=== PATIENT | female | born 1935 | race Caucasian/White ===

== ENCOUNTER 2016-03-15 03:02 | Inpatient (IN) | payer MEDICARE, OTHER ==
[~2016-03-15] VITALS: Ht 157.5 cm; Wt 42.0 kg
[2016-03-15] VITALS (11 sets, daily range): BP systolic 110–139; BP diastolic 56–64
[~2016-03-15 03:02] MED LIST: ALBU83IN NEB; ASPI325T PO; ASPI81CH PO; ATOR1TAB18 PO; BACITAB3 PO; BROV15NE INH; CITA20TA4 PO; COLA100C PO; COUM1TAB14 PO; DOCU10CA PO; DULC5TAB PO; IPRASOL4 NEB; LANO0.1211 PO; LEVO25TA5 PO; LIDO5DIS36 TD; LISI10TA4 PO; METO-346 PO; METO25TAB PO; MILKSUS PO; MIRA3350 PO; PANT40TA2 PO; PROA1AER INH; SENO8.6T10 PO; SENO8.6T2 PO; SPIR1CAP INH; SYNT50TA PO; TYLE325T5 PO; TYLE500T78 PO; VISITAB6 PO; VITMTA PO; ZOFR20TA PO; ipratropium bromide INH
[2016-03-15] MEDS ORDERED: MIDAZOLAM INJ 2 MG/2 ML VIAL (J2250) IV PRN (04:15)
[2016-03-15] MEDS ORDERED: MORPHINE 2 MG/ML 1ML SYRINGE IV PRN (04:15)
[2016-03-15] MEDS ORDERED: GLUCAGON FOR INJ 1 MG VIAL (J1610) SC PRN (04:30)
[2016-03-15] MEDS ORDERED: DEXTROSE 50% 50 ML SYRINGE IV PRN (04:30)
[2016-03-15] MEDS ORDERED: GLUCOSE 4 GM CHEW TABLET PO PRN (04:30)
[2016-03-15] MEDS ORDERED: NOREPINEPHRINE BITARTRATE 8 MG in D5W 500 ML IV SCH (05:00)
[2016-03-15] MEDS ORDERED: NOREPINEPHRINE 4 MG/4 ML AMP As Ordered ONE (05:05)
[2016-03-15 05:45] LABS: EOS % 0.1 % (0.0-3.0); LARGE UNSTAINED CELL % 0.3 % (0.0-4.0); LYMPH # 0.4 K/mm3 (1.5-4.5); LYMPH % 2.8 % (24.0-44.0); MEAN CORPUSCULAR HEMOGLOBIN 25.4 pg (27.0-33.0); MEAN CORPUSCULAR HGB CONC 30.5 g/dl (32.0-36.5); MONO # 0.2 K/mm3 (0.0-0.8); MONO % 1.4 % (0.0-5.0); NEUTROPHILS # 12.9 K/mm3 (1.8-7.7); NEUTROPHILS % 95.4 % (36.0-66.0); PLATELET COUNT, AUTOMATED 351 k/mm3 (150-450); RED CELL DISTRIBUTION WIDTH 19.6 % (11.5-14.5); WHITE BLOOD COUNT 13.6 K/mm3 (4.0-10.0)
[2016-03-15 05:56] LABS: INR 1.07
[2016-03-15] MEDS ORDERED: LEVOTHYROXINE SODIUM 0.0625 MG 1/2 TAB (62.5MCG) PO SCH (06:00)
[2016-03-15 06:03] LABS: ABG BASE EXCESS 1.2 (-2.0-2.0); ABG HCO3 25.3 MEQ/L (22.0-26.0); ABG PARTIAL PRESSURE CO2 37.7 mmHg (35.0-45.0); ABG PARTIAL PRESSURE O2 81.9 mmHg (75.0-100.0); ABG STANDARD HCO3 25.6 MEQ/L (22.0-26.0); ABG TOTAL CO2 26.4 MEQ/L (23.0-31.0); ABG pH (ARTERIAL) 7.444 UNITS (7.350-7.450)
[2016-03-15] MEDS: D5W/0.9% SODIUM CHLORIDE 1,000 ML IV SCH ×2 (06:10→22:10)
[2016-03-15] MEDS: HumaLOG INSULIN (NovoLOG) PER UNIT SC SCH ×3 (06:11→17:55)
[2016-03-15 06:22] LABS: ALBUMIN 3.2 GM/DL (3.2-5.2); ALBUMIN/GLOBULIN RATIO 1.14 (1.00-1.93); BILIRUBIN,TOTAL 0.3 MG/DL (0.2-1.0); CALCIUM LEVEL 8.4 MG/DL (8.8-10.2); CREATININE FOR GFR 0.99 MG/DL (0.55-1.02); GLOMERULAR FILTRATION RATE 57.3 (>32); MAGNESIUM LEVEL 1.7 MG/DL (1.8-2.4); PHOSPHORUS LEVEL 2.8 MG/DL (2.5-4.9); POTASSIUM SERUM 3.8 MEQ/L (3.5-5.1)
[2016-03-15] MEDS: IPRATROPIUM 0.5MG/ALBUTEROL 2.5MG INH SOL UD 3ML (DUONEB)(J7620) NEB SCH ×4 (07:30→19:28)
[2016-03-15] MEDS: DIGOXIN 0.125 MG TAB PO SCH (09:00)
[2016-03-15] MEDS ORDERED: PANTOPRAZOLE 40MG INJ (PROTONIX) (C9113) IV SCH (09:00)
[2016-03-15] MEDS ORDERED: CHLORHEXIDINE GLUCONATE 0.12 % 15ML UDC (PERIDEX ORAL RINSE) MT SCH (09:00)
[2016-03-15] MEDS ORDERED: THEO30TASA PO ×2 (10:24→18:10)
[2016-03-15] MEDS ORDERED: METO50TA9 PO (10:24)
[2016-03-15] MEDS ORDERED: DILT240C28 PO (10:24)
--- NOTE | 2016-03-15 11:45 | REP ---
AP PORTABLE CHEST: 03/15/2016 at 10:51 AM. Clinical history: Endotracheal tube. Comparison CT chest 03/26/2015, portable chest 03/26/2015, 11/07/2014, 11/05/2014. Findings: Endotracheal tube is seen with its tip only about 1.5 cm above the lucía. It should be pulled back 1-2 cm. A nasogastric tube courses through the mediastinum into the left upper quadrant, tip off the field well into the body of the stomach. Haziness at the right lung base suggests some atelectasis or effusion with blunting of that CP angle confirming some effusion. Basilar atelectatic or fibrotic change and diffuse vascular congestion with engorgement of the veins and the underlying interstitial fibrosis making early edema difficult to exclude. I do suspect some interstitial edema. Chronic fibronodular density in the left base as on multiple previous chest x-rays and CT. Tortuous calcified aorta again seen. Heart size not enlarged. Bones demineralized. Impression: 1. Endotracheal tube only 1.5 cm from the ulcía. It should be pulled back 1-2 cm. 2. Nasogastric tube well into the stomach, tip off the field. 3. Diffuse interstitial and alveolar edema and/or infiltrates with haziness right lung base suggesting right effusion and/or atelectasis. Chronic fibronodular density left base. No gross cardiomegaly. Tortuous calcified aorta without aneurysm. Advance fibrosis and emphysematous changes. Signed by Tee Lomeli MD 03/15/2016 07:00 P
[2016-03-15] MEDS: LEVOTHYROXINE 0.025 MG TAB (25 MCG) PO SCH (12:42)
[2016-03-15] MEDS ORDERED: COUM2TAB10 PO (17:12)
[2016-03-15] MEDS ORDERED: DIGO0.12 PO (17:12)
[2016-03-15] MEDS ORDERED: LEVO50TA5 PO (17:12)
[2016-03-15] MEDS ORDERED: XANA0.5T PO (17:12)
[2016-03-15] MEDS ORDERED: ASPI1TAB PO ×2 (17:12→18:10)
[2016-03-15] MEDS ORDERED: ATOR1TAB18 PO (17:12)
[2016-03-15] MEDS ORDERED: STOO100C PO (17:12)
[2016-03-15] MEDS ORDERED: PANT20TA PO (17:12)
[2016-03-15] MEDS ORDERED: LISI10TA4 PO (17:12)
[2016-03-15] MEDS ORDERED: METO-207 PO (18:02)
[2016-03-15] MEDS ORDERED: LUTECAP2 PO (18:10)
[2016-03-15] MEDS ORDERED: CITA20TA4 PO (18:10)
[2016-03-15] MEDS ORDERED: LISI-542 PO (18:10)
[2016-03-15] MEDS ORDERED: PANT40TA2 PO (18:10)
[2016-03-15] MEDS ORDERED: DILT240C56 PO (18:11)
[2016-03-15] MEDS ORDERED: WARFARIN SOD 2.5 MG TAB PO ONE (21:15)
[2016-03-15] MEDS ORDERED: ASPIRIN 81 MG ENTERIC TAB PO ONE (21:15)
[2016-03-16] VITALS (14 sets, daily range): BP systolic 126–239; BP diastolic 59–105; O2SAT 98
[2016-03-16 05:19] LABS: LARGE UNSTAINED CELL # 0.1 K/mm3 (0.0-0.4); LARGE UNSTAINED CELL % 0.5 % (0.0-4.0); LYMPH % 6.5 % (24.0-44.0); MEAN CORPUSCULAR HEMOGLOBIN 25.6 pg (27.0-33.0); MEAN CORPUSCULAR HGB CONC 31.1 g/dl (32.0-36.5); MEAN CORPUSCULAR VOLUME 82.3 fl (80.0-96.0); MONO # 0.4 K/mm3 (0.0-0.8); MONO % 2.4 % (0.0-5.0); NEUTROPHILS % 90.5 % (36.0-66.0); PLATELET COUNT, AUTOMATED 362 k/mm3 (150-450); RED CELL DISTRIBUTION WIDTH 19.7 % (11.5-14.5); WHITE BLOOD COUNT 15.5 K/mm3 (4.0-10.0)
[2016-03-16 05:33] LABS: INR 1.26
[2016-03-16 05:41] LABS: ALBUMIN 2.7 GM/DL (3.2-5.2); ALBUMIN/GLOBULIN RATIO 0.96 (1.00-1.93); ALKALINE PHOSPHATASE 123 U/L (45-117); ALT/SGPT 15 U/L (12-78); ANION GAP 9 MEQ/L (8-16); AST/SGOT 17 U/L (15-37); BILIRUBIN,TOTAL 0.2 MG/DL (0.2-1.0); BLOOD UREA NITROGEN 12 MG/DL (7-18); CALCIUM LEVEL 7.9 MG/DL (8.8-10.2); CARBON DIOXIDE LEVEL 25 MEQ/L (21-32); CHLORIDE LEVEL 107 MEQ/L (98-107); CHOLESTEROL LEVEL 114 MG/DL (< 200); CREATININE FOR GFR 0.66 MG/DL (0.55-1.02); GLOMERULAR FILTRATION RATE > 60.0 (>32); GLUCOSE, FASTING 126 MG/DL (83-110); PHOSPHORUS LEVEL 3.3 MG/DL (2.5-4.9); POTASSIUM SERUM 4.2 MEQ/L (3.5-5.1); SODIUM LEVEL 141 MEQ/L (136-145); TOTAL PROTEIN 5.5 GM/DL (6.4-8.2); TRIGLYCERIDES LEVEL 79 MG/DL (<150)
[2016-03-16 06:15] LABS: ABG BASE EXCESS 1.3 (-2.0-2.0); ABG HCO3 26.7 MEQ/L (22.0-26.0); ABG PARTIAL PRESSURE CO2 46.3 mmHg (35.0-45.0); ABG PARTIAL PRESSURE O2 145.8 mmHg (75.0-100.0); ABG STANDARD HCO3 25.6 MEQ/L (22.0-26.0); ABG TOTAL CO2 28.1 MEQ/L (23.0-31.0); ABG pH (ARTERIAL) 7.379 UNITS (7.350-7.450)
[2016-03-16] MEDS: HumaLOG INSULIN (NovoLOG) PER UNIT SC SCH ×5 (06:37→20:56)
[2016-03-16] MEDS: LEVOTHYROXINE 0.025 MG TAB (25 MCG) PO SCH (06:37)
--- NOTE | 2016-03-16 06:46 | REP ---
MRI BRAIN WITHOUT AND WITH CONTRAST: 03/15/2016. Clinical history: Occipital CVA. Past history of uterine carcinoma. No prior study. Technique: Axial T1, T2, FLAIR, gradient echo, diffusion-weighted images and ADC mapping sequences with sagittal T1 sequence following infusion of 4 ml of ProHance, T1 axial and coronal post gadolinium images obtained. Findings. Ventricles are midline, symmetric and mildly dilated for those lateral ventricles but not displaced. They are proportionate to the mild diffuse cerebral atrophy. There is extensive periventricular deep central and subcortical white matter hyperintense T2 and FLAIR signal foci bilaterally. There are bilateral dilated spaces of Virchow in the basal ganglia. The cortical stripe shows diffuse atrophy greatest in the temporal lobes but present elsewhere to a lesser extent throughout. On gradient echo images, there is no evidence of intraparenchymal or intraventricular hemorrhage. T2 and FLAIR images show signal abnormality in the left occipital lobe abutting the falx above the tentorium. There is more confluent hyperintense T2 and FLAIR signal abnormality in these regions with more central hyperintense T2 and hypointense FLAIR signal in the same region representing a subacute infarct with developing encephalomalacia. No evidence of hemorrhage. Diffusion weighted images and the ADC mapping sequences confirm the presence of the subacute infarct. I do not see acute ischemia elsewhere. The corpus callosum, optic chiasm and pituitary were grossly intact. There is no cerebellar tonsillar ectopia. Brainstem shows some bilateral hyperintense signal foci in the kitty and cerebral peduncles. These do not show evidence of hemorrhage on the gradient echo images. Basal cisterns are intact. The cerebellum shows no mass or signal abnormality. It has mild atrophy. The seventh/eighth cranial nerve complexes and mastoids grossly intact. Septal deviation towards the right is mild. The frontal, ethmoid, sphenoid and maxillary sinuses visible were intact. Globes and intraorbital contents including optic nerves and extraocular muscles were unremarkable. No abnormal enhancement of these structures. There is no other abnormal enhancement besides that subacute infarct in the posterior left occipital lobe. Developing encephalomalacia in this region. No midline shift, edema or mass effect. Impression: 1. Subacute infarct left posterior occipital lobe abutting the falx but above the level of the tentorium. No bleed associated with this. No significant mass effect or adjacent edema. Gyriform enhancement and developing encephalomalacia noted. No other infarct, hemorrhage or mass. 2. Diffuse atrophy with midline mildly dilated lateral ventricles without displacement. 3. There are chronic extensive small vessel white matter ischemic changes in periventricular, deep central and subcortical white matter tracts bilaterally. Signed by Tee Lomeli MD 03/16/2016 10:07 A
[2016-03-16] MEDS: IPRATROPIUM 0.5MG/ALBUTEROL 2.5MG INH SOL UD 3ML (DUONEB)(J7620) NEB SCH ×5 (07:18→23:45)
--- NOTE | 2016-03-16 09:18 | REP ---
PORTABLE CHEST: AP portable view of the chest is performed and compared to prior study 03/15/2016 as well as other prior exams. Endotracheal tube and nasogastric tube have been removed. Scattered interstitial infiltrates diffusely bilaterally have mildly improved. There are also mild bibasilar alveolar infiltrates which appear somewhat improved. The heart is not significantly enlarged. There is calcification and tortuosity of the thoracic aorta. The mediastinal silhouette is unchanged. Possible small right effusion is noted. IMPRESSION: Improvement of diffuse interstitial infiltrates. Improvement of bibasilar alveolar infiltrates. Possible small right effusion. Removal of endotracheal tube and nasogastric tube. Signed by Edmundo Boyd MD 03/16/2016 01:36 P
[2016-03-16] MEDS: DIGOXIN 0.125 MG TAB PO SCH (09:45)
[2016-03-16] MEDS: ASPIRIN 81 MG ENTERIC TAB PO SCH (09:45)
[2016-03-16] MEDS ORDERED: IPRATROPIUM 0.5MG/ALBUTEROL 2.5MG INH SOL UD 3ML (DUONEB)(J7620) NEB PRN (10:00)
--- NOTE | 2016-03-16 10:07 | CCN ---
DATE: 03/15/2016 TIME: 5:13 a.m. The patient is seen on arrival via ambulance to the intensive care unit from the [facility] where she presented at 0045 this morning unresponsive. She is an 80-year-old female. She was found unresponsive at home by family and brought via EMS to [facility] where she was found in respiratory distress. Endotracheal tube intubation was performed. She developed hypotension and pressors were started. CT scan of the head shows a left occipital cerebrovascular accident (CVA). Focal seizures were described in the emergency department at [facility]. On reviewing the electronic health record, she has a past medical history of CVA times two in 2013 with involvement of the right basal ganglion. 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 On her arrival, exam reveals temperature of 96, pulse rate 96, respirations 16 over 16 delivered and her blood pressure is 136/60. She is a cachectic, elderly female, unresponsive, intubated on mechanical ventilatory support. HEENT: Her left pupil is large and poorly responsive, right is 3 mm and reacts. The endotracheal tube is at 25 cm. Neck is supple. There is no meningismus. Limited range of motion is noted. The jugular veins are not distended. Carotid upstroke is sluggish with bilateral bruits. Heart sounds are regular with a systolic murmur. Breath sounds diminished bilaterally, expiratory phase is prolonged. The chest is hyperinflated and hyperresonant to percussion. Abdomen is soft with bilateral femoral bruits. No abdominal masses. Extremities are cool. Pulses are diminished. She is hyperreflexic on the left. Sodium 134, potassium 4.7, chloride 98, CO2 17, glucose 199. White cell count 22, hemoglobin 9.7, hematocrit 31.5, platelet count 499,000. The primary problem requiring critical attention is acute respiratory failure. Will initiate mechanical ventilation with assist control, lung protective settings and check an arterial blood gas. The patient has suffered an ischemic CVA. Will provide supportive care, blood pressure control and will obtain consultation with neurology. Neurogenic shock. Pressors will be utilized to maintain a mean arterial pressure of 65. Underlying chronic obstructive pulmonary disease (COPD). The patient will be given nebulized bronchodilator therapy. Focal seizures. The patient is not experiencing any seizure activity at this time. Will closely monitor her for the occurrence of seizures and intervene if necessary. Deep vein thrombosis (DVT) prophylaxis will be addressed with sequential hose. Ulcer prophylaxis will be addressed with Protonix. Glycemic control will be monitored with fingerstick blood sugars. Will provide coverage if needed. 1 hour and 50 minutes of time was spent at bedside in critical care and coordination. The patient's condition is critical. Prognosis is guarded to poor.
[2016-03-16] MEDS: PANTOPRAZOLE 40MG TAB (PROTONIX) PO SCH (10:16)
[2016-03-16] MEDS ORDERED: ALBUTEROL SULFATE 2.5 MG/0.5 ML INH NEB SOLN As Ordered ONE (10:31)
[2016-03-16] MEDS ORDERED: ALBUTEROL SULFATE 2.5 MG/0.5 ML INH NEB SOLN NEB PRN (10:45)
[2016-03-16] MEDS ORDERED: methylPREDNISolone INJ 125 MG/2 ML VIAL (J2930) IV ONE (11:00)
[2016-03-16] MEDS ORDERED: FUROSEMIDE 20 MG/2 ML VIAL (J1940) IV ONE (12:45)
[2016-03-16] MEDS ORDERED: FUROSEMIDE 40 MG/4 ML VIAL (J1940) IV ONE ×2 (13:00→17:45)
[2016-03-16] MEDS: methylPREDNISolone INJ 125 MG/2 ML VIAL (J2930) IV SCH ×2 (14:46→20:41)
[2016-03-16] MEDS: WARFARIN SOD 2.5 MG TAB PO SCH (17:33)
--- NOTE | 2016-03-16 18:14 | CR ---
DATE OF CONSULTATION: 03/15/2016 REFERRING PHYSICIAN: Dr. Alcantar HISTORY: The patient is an 80-year-old female who was transferred from [facility] at about 3:00 a.m. today. The patient is unable to provide any history , and this information is through her medical records. According to this, her daughter noted that she was on the toilet for about 1 hour at 10:30 p.m.. Her daughter went to see her and found that she was very confused. She did not know how to get off the toilet. She helped the patient to get onto the bed where she started having seizure-like activity. She was nonverbal at that point and was also weak on the right side of her body. Emergency biomedical equipment technician (EMT) was called in, and she was transferred to the [facility] where she had a CT scan of the brain performed which showed suspicious occipital strokes. She was intubated and transferred to the [facility]. She has been here since then. She has not been witnessed to have any further seizure-like activity. She was extubated about 15 minutes ago and seems to be breathing on her on without any difficulty. She is unable to answer any questions, although she does open her eyes and then goes back to sleep. Her current medications include Protonix, digoxin, albuterol, insulin, levothyroxine and norepinephrine which was given to her earlier. She was also on a baby aspirin and Coumadin at home for her atrial fibrillation. PAST MEDICAL HISTORY: 1. Atrial fibrillation. 2. Hypertension. 3. Coronary artery disease. 4. Chronic obstructive pulmonary disease (COPD). 5. Bilateral chronic cataracts. 6. Macular degeneration. 7. Anemia. 8. Left occipital cerebrovascular accident. 9. Appendectomy. FAMILY HISTORY: The patient's mother and father are both .. No further history is available from her at the present time. Her sister is known to have a history of leukemia. PERSONAL AND SOCIAL HISTORY: Patient who is a resident of [place]. There is history of smoking in the past which she quit about 8 years ago. There is no history of any alcohol or drug abuse. All other systems were reviewed and found to be non contributory.. PHYSICAL EXAMINATION: On examination, the patient does not appear in any discomfort. She is receiving oxygen supplements through a mask. She does not appear in any discomfort. Her posture is normal. Her blood pressure is 120/60. Pulse is 84 per minute. Respirations are 12 per minute. Her temperature is 98.4 degrees Fahrenheit. She is 5 feet 2 inches tall. She weighs about 42.5 kg. Her neck is supple. There is no carotid bruit audible. Her ear, nose and throat examination is normal. Lungs are clear to auscultation. Her heart is regular in rhythm. Her abdomen is soft and nondistended. There is no ankle edema seen. The peripheral pulses are normally palpable. Neurologically, she is lethargic. She opens her eyes to verbal stimuli for a short period of time and then falls asleep again. Her pupils are irregular in size. The left pupil is about 6 mm and poorly reactive to light. The right pupil is about 4 mm in size and again poorly reactive to light. The consensual light reflex is also sluggish. Her visual garza could not be tested. Her face appears symmetrical. It. It is difficult to assess motor function, but she seems to be moving all her extremities fairly well. There is a question of left-sided body weakness which is difficult to identify at the present time. Her muscle tone is normal. Her sensory examination could not be performed. Deep tendon reflexes are 2+ on the right side and 3+ on the left side of her body with an upgoing toe on the left side. Her gait is not tested. DIAGNOSTIC STUDIES: The patient's CT scan of the brain which was performed in [facility] showed a questionable infarct in the occipital lobes. Her MRI of the brain has been scheduled and is pending. Her CBC shows a white cell count of 13,600, hemoglobin 13.83, hematocrit 31.8 and platelets 351,000. Her sodium is 141, potassium 3.8, BUN 12 and creatinine 0.99. Her calcium level is 8.4. Her CPK on admission was 57. Her cholesterol is 126. ASSESSMENT: Altered mental status. Witnessed seizure-like activity. History of prior cerebrovascular accident. Cerebrovascular accident at present appears less likely. Respiratory insufficiency of unknown reason. PLAN: 1. EEG study. 2. MRI of the brain. 3. Keppra as a contingency plan. 4. Aspirin 81 mg by mouth daily if there is no evidence of cerebral hemorrhage. 5. Continue with anticoagulation given her history of atrial fibrillation. 6. Physical therapy (PT)/occupational therapy (OT) evaluation and treatment when she is more alert. Thank you very much for this consultation. RUDOLPH
[2016-03-16] MEDS ORDERED: VERAPAMIL HCL 5 MG/2 ML VIAL IV STA (22:49)
[2016-03-17] VITALS (9 sets, daily range): BP systolic 105–152; BP diastolic 58–90; O2SAT 96
[2016-03-17] MEDS: IPRATROPIUM 0.5MG/ALBUTEROL 2.5MG INH SOL UD 3ML (DUONEB)(J7620) NEB SCH ×5 (03:52→21:02)
[2016-03-17 05:07] LABS: EOS % 0.3 % (0.0-3.0); LARGE UNSTAINED CELL # 0.1 K/mm3 (0.0-0.4); LARGE UNSTAINED CELL % 0.4 % (0.0-4.0); LYMPH # 0.7 K/mm3 (1.5-4.5); LYMPH % 5.2 % (24.0-44.0); MEAN CORPUSCULAR HEMOGLOBIN 25.3 pg (27.0-33.0); MEAN CORPUSCULAR HGB CONC 30.7 g/dl (32.0-36.5); MEAN CORPUSCULAR VOLUME 82.4 fl (80.0-96.0); MONO # 0.3 K/mm3 (0.0-0.8); MONO % 2.3 % (0.0-5.0); NEUTROPHILS # 12.7 K/mm3 (1.8-7.7); NEUTROPHILS % 91.9 % (36.0-66.0); PLATELET COUNT, AUTOMATED 355 k/mm3 (150-450); RED CELL DISTRIBUTION WIDTH 19.5 % (11.5-14.5); WHITE BLOOD COUNT 13.8 K/mm3 (4.0-10.0)
[2016-03-17 05:26] LABS: INR 1.64
[2016-03-17 05:29] LABS: ALKALINE PHOSPHATASE 150 U/L (45-117); ALT/SGPT 20 U/L (12-78); ANION GAP 8 MEQ/L (8-16); AST/SGOT 29 U/L (15-37); BILIRUBIN,TOTAL 0.3 MG/DL (0.2-1.0); BLOOD UREA NITROGEN 18 MG/DL (7-18); CALCIUM LEVEL 8.5 MG/DL (8.8-10.2); CARBON DIOXIDE LEVEL 31 MEQ/L (21-32); CHLORIDE LEVEL 103 MEQ/L (98-107); CHOLESTEROL LEVEL 143 MG/DL (< 200); GLOMERULAR FILTRATION RATE > 60.0 (>32); GLUCOSE, FASTING 133 MG/DL (83-110); PHOSPHORUS LEVEL 3.1 MG/DL (2.5-4.9); POTASSIUM SERUM 3.8 MEQ/L (3.5-5.1); SODIUM LEVEL 142 MEQ/L (136-145); TRIGLYCERIDES LEVEL 100 MG/DL (<150)
[2016-03-17] MEDS: methylPREDNISolone INJ 125 MG/2 ML VIAL (J2930) IV SCH ×3 (05:33→21:33)
[2016-03-17] MEDS: LEVOTHYROXINE 0.025 MG TAB (25 MCG) PO SCH (05:33)
[2016-03-17 05:45] LABS: ABG HCO3 32.3 MEQ/L (22.0-26.0); ABG PARTIAL PRESSURE CO2 49.4 mmHg (35.0-45.0); ABG PARTIAL PRESSURE O2 85.8 mmHg (75.0-100.0); ABG STANDARD HCO3 30.9 MEQ/L (22.0-26.0); ABG TOTAL CO2 33.8 MEQ/L (23.0-31.0); ABG pH (ARTERIAL) 7.433 UNITS (7.350-7.450)
--- NOTE | 2016-03-17 07:32 | CCN ---
DATE: 03/16/2016 CRITICAL CARE NOTE: The patient is seen in the intensive care unit having been extubated yesterday. She did reasonably well through the night but developed increasing respiratory distress this morning with wheezing. Her temperature is 98.5, T-max for the past 24 hours is 99.4, pulse rate 91, respirations 26 and labored, blood pressure 161/74. Oxygen saturation is 90% on 2 liters. Her input and output for the past 24 hours 2180 in, 1095 out. Since midnight 120 in, 325 out. At bedside, she is ill-appearing and cachectic in moderate to severe respiratory distress. HEENT: Oral mucosa is pink. There is no stridor over her trachea. No adenopathy in the neck. Her jugular veins are mildly distended. Carotid upstroke sluggish without bruit. There are no supraclavicular nodes. Heart: Sounds are regular without appreciable murmur. Breath sounds are coarse and diminished bilaterally. The chest is symmetric. Moves symmetrically with accessory muscle engagement. Abdomen is soft. Extremities: Show no significant edema. DIAGNOSTIC STUDIES: Her white cell count is up to 15, hemoglobin 88, hematocrit 28, platelet count 362,000. Differential white cell count shows 90% neutrophils. Electrolytes are sodium 141, potassium 4.2, chloride 107, bicarb 25, BUN 12, creatinine 0.6, glucose 126. Arterial blood gases show pH 7.37, pCO2 46, pO2 145. Chest x-ray shows some prominence of the interstitium. The primary problem requiring critical attention is acute hypoxic hypercarbic respiratory failure with increased nebulized therapy. I will stop her IV fluids and give a dose of diuretics. Cerebrovascular accident (CVA), ischemic. She has been started on aspirin and Coumadin. I appreciate neurology's followup. Deep venous thrombosis (DVT) prophylaxis being addressed with sequential hose. Ulcer prophylaxis being addressed with Protonix. Her condition remains critical. Prognosis is guarded. 67 minutes spent in provision of bedside critical care and coordination. I have updated the patient's family at bedside.
[2016-03-17] MEDS: HumaLOG INSULIN (NovoLOG) PER UNIT SC SCH ×4 (07:56→21:00)
[2016-03-17] MEDS: ASPIRIN 81 MG ENTERIC TAB PO SCH (08:41)
[2016-03-17] MEDS: PANTOPRAZOLE 40MG TAB (PROTONIX) PO SCH (08:41)
[2016-03-17] MEDS: DIGOXIN 0.125 MG TAB PO SCH (08:41)
--- NOTE | 2016-03-17 08:57 | REP ---
PORTABLE CHEST: AP portable view of the chest is performed and compared to a prior study of 03/16/2016. There appears to be increased vascular congestion and increased bilateral diffuse interstitial edema. There is also a mild increase in bibasilar alveolar infiltrates. Heart appears to be at the upper limits of normal in size. There is calcified ectatic aortic. The mediastinal silhouette is unchanged. IMPRESSION: Mild increase in vascular congestion, diffuse interstitial edema and bibasilar alveolar infiltrates. Small effusions. Signed by Edmundo Boyd MD 03/17/2016 09:36 A
[2016-03-17] MEDS ORDERED: FUROSEMIDE 40 MG/4 ML VIAL (J1940) IV SCH (09:00)
[2016-03-17] MEDS ORDERED: PANTOPRAZOLE 40MG TAB (PROTONIX) PO SCH (09:00)
[2016-03-17] MEDS: ALPRAZolam 0.5 MG TAB PO PRN ×2 (11:36→22:12)
[2016-03-17] MEDS: CitaloPRAM (CeleXA) 20 MG TAB PO SCH (11:36)
[2016-03-17] MEDS: WARFARIN SOD 2.5 MG TAB PO SCH (17:30)
[2016-03-18] VITALS: BP 123/58
[2016-03-18] MEDS: IPRATROPIUM 0.5MG/ALBUTEROL 2.5MG INH SOL UD 3ML (DUONEB)(J7620) NEB SCH ×7 (01:27→23:44)
[2016-03-18 04:00] VITALS: BP 116/57
[2016-03-18 05:22] LABS: EOS % 0.1 % (0.0-3.0); LARGE UNSTAINED CELL % 0.4 % (0.0-4.0); LYMPH # 0.5 K/mm3 (1.5-4.5); LYMPH % 4.4 % (24.0-44.0); MEAN CORPUSCULAR HEMOGLOBIN 25.4 pg (27.0-33.0); MEAN CORPUSCULAR HGB CONC 31.1 g/dl (32.0-36.5); MEAN CORPUSCULAR VOLUME 81.6 fl (80.0-96.0); MONO # 0.2 K/mm3 (0.0-0.8); MONO % 2.3 % (0.0-5.0); NEUTROPHILS # 9.7 K/mm3 (1.8-7.7); NEUTROPHILS % 92.8 % (36.0-66.0); PLATELET COUNT, AUTOMATED 359 k/mm3 (150-450); RED CELL DISTRIBUTION WIDTH 19.3 % (11.5-14.5); WHITE BLOOD COUNT 10.4 K/mm3 (4.0-10.0)
[2016-03-18 05:30] LABS: INR 2.25
[2016-03-18 05:39] LABS: ALBUMIN 2.9 GM/DL (3.2-5.2); ALBUMIN/GLOBULIN RATIO 0.94 (1.00-1.93); ALKALINE PHOSPHATASE 147 U/L (45-117); ALT/SGPT 33 U/L (12-78); ANION GAP 7 MEQ/L (8-16); AST/SGOT 39 U/L (15-37); BILIRUBIN,TOTAL 0.4 MG/DL (0.2-1.0); BLOOD UREA NITROGEN 20 MG/DL (7-18); CALCIUM LEVEL 8.6 MG/DL (8.8-10.2); CARBON DIOXIDE LEVEL 32 MEQ/L (21-32); CHLORIDE LEVEL 98 MEQ/L (98-107); CHOLESTEROL LEVEL 141 MG/DL (< 200); CREATININE FOR GFR 0.69 MG/DL (0.55-1.02); GLOMERULAR FILTRATION RATE > 60.0 (>32); GLUCOSE, FASTING 139 MG/DL (83-110); PHOSPHORUS LEVEL 2.8 MG/DL (2.5-4.9); POTASSIUM SERUM 4.2 MEQ/L (3.5-5.1); SODIUM LEVEL 137 MEQ/L (136-145); TRIGLYCERIDES LEVEL 84 MG/DL (<150)
[2016-03-18] MEDS: methylPREDNISolone INJ 125 MG/2 ML VIAL (J2930) IV SCH ×3 (06:00→20:57)
[2016-03-18] MEDS: LEVOTHYROXINE 0.025 MG TAB (25 MCG) PO SCH (06:00)
[2016-03-18 08:00] VITALS: BP_SYST 130; BP_SYST 131; BP_DIAS 61; BP_DIAS 66
[2016-03-18] MEDS: HumaLOG INSULIN (NovoLOG) PER UNIT SC SCH ×4 (08:29→20:32)
[2016-03-18] MEDS: ASPIRIN 81 MG ENTERIC TAB PO SCH (08:29)
[2016-03-18] MEDS: CitaloPRAM (CeleXA) 20 MG TAB PO SCH (08:30)
[2016-03-18] MEDS: DIGOXIN 0.125 MG TAB PO SCH (08:30)
[2016-03-18] MEDS: PANTOPRAZOLE 40MG TAB (PROTONIX) PO SCH (08:30)
[2016-03-18 12:00] VITALS: BP 129/60
[2016-03-18] MEDS: SLF 3 ML SYR IV SCH ×2 (13:43→21:00)
[2016-03-18] MEDS ORDERED: SLF 3 ML SYR IV PRN (13:45)
[2016-03-18 16:00] VITALS: BP 130/61
[2016-03-18] MEDS: WARFARIN SOD 2.5 MG TAB PO SCH (16:52)
[2016-03-18 20:00] VITALS: BP 116/60
[2016-03-18] MEDS: ALPRAZolam 0.5 MG TAB PO PRN (20:57)
[2016-03-19] VITALS: BP 134/65
[2016-03-19] MEDS: IPRATROPIUM 0.5MG/ALBUTEROL 2.5MG INH SOL UD 3ML (DUONEB)(J7620) NEB SCH ×6 (02:48→23:33)
[2016-03-19 04:00] VITALS: BP 122/61
[2016-03-19 05:09] LABS: INR 2.08
[2016-03-19 05:11] LABS: EOS % 0.1 % (0.0-3.0); LARGE UNSTAINED CELL % 0.3 % (0.0-4.0); LYMPH # 0.2 K/mm3 (1.5-4.5); LYMPH % 2.9 % (24.0-44.0); MEAN CORPUSCULAR HGB CONC 31.9 g/dl (32.0-36.5); MEAN CORPUSCULAR VOLUME 81.6 fl (80.0-96.0); MONO # 0.1 K/mm3 (0.0-0.8); MONO % 1.5 % (0.0-5.0); NEUTROPHILS # 7.8 K/mm3 (1.8-7.7); NEUTROPHILS % 95.1 % (36.0-66.0); PLATELET COUNT, AUTOMATED 326 k/mm3 (150-450); RED CELL DISTRIBUTION WIDTH 19.6 % (11.5-14.5); WHITE BLOOD COUNT 8.2 K/mm3 (4.0-10.0)
[2016-03-19 05:27] LABS: ALBUMIN 2.8 GM/DL (3.2-5.2); ALBUMIN/GLOBULIN RATIO 0.93 (1.00-1.93); ALKALINE PHOSPHATASE 145 U/L (45-117); ALT/SGPT 75 U/L (12-78); ANION GAP 6 MEQ/L (8-16); AST/SGOT 63 U/L (15-37); BILIRUBIN,TOTAL 0.4 MG/DL (0.2-1.0); BLOOD UREA NITROGEN 24 MG/DL (7-18); CALCIUM LEVEL 8.7 MG/DL (8.8-10.2); CARBON DIOXIDE LEVEL 34 MEQ/L (21-32); CHLORIDE LEVEL 98 MEQ/L (98-107); CHOLESTEROL LEVEL 143 MG/DL (< 200); CREATININE FOR GFR 0.66 MG/DL (0.55-1.02); GLOMERULAR FILTRATION RATE > 60.0 (>32); GLUCOSE, FASTING 156 MG/DL (83-110); PHOSPHORUS LEVEL 2.7 MG/DL (2.5-4.9); POTASSIUM SERUM 4.2 MEQ/L (3.5-5.1); SODIUM LEVEL 138 MEQ/L (136-145); TOTAL PROTEIN 5.8 GM/DL (6.4-8.2); TRIGLYCERIDES LEVEL 77 MG/DL (<150)
[2016-03-19] MEDS: LEVOTHYROXINE 0.025 MG TAB (25 MCG) PO SCH (05:35)
[2016-03-19] MEDS: methylPREDNISolone INJ 125 MG/2 ML VIAL (J2930) IV SCH ×2 (05:35→12:35)
[2016-03-19] MEDS: SLF 3 ML SYR IV SCH ×3 (05:35→21:24)
--- NOTE | 2016-03-19 06:51 | EEG ---
DATE OF PROCEDURE: 03/18/2016 REFERRING PHYSICIAN: Dr. Regino Alcantar DIAGNOSIS: Seizures. EEG NUMBER: [id number]. CLINICAL HISTORY: Patient is an 80-year-old woman with history of occipital lobe stroke and seizures. This EEG was done to rule out epileptic potential. She is currently on aspirin, Coumadin, diltiazem, Celexa, Coumadin, etc. TECHNICAL DESCRIPTION: This digital EEG was recorded by 21 scalp, ear and two EKG electrodes and was reviewed in bipolar and referential montages following reformatting in 10-20 international electrode placement system. INTERPRETATION: Patient was noted to be in awake and drowsy states during this EEG. Resting awake background consisted of 7 Hz theta activity measuring 15-30 microvolts in amplitude, which was symmetric. No sleep was achieved. Hyperventilation could not be performed. Photic stimulation remained unremarkable. EKG revealed irregular heart rhythm and possible atrial fibrillation. No focal, lateralizing or epileptiform abnormalities were seen. No clinical or electrographic seizures were recorded. Excessive muscle artifact was noted in bilateral frontal and temporal head regions. CONCLUSION: This EEG in awake and drowsy states is mildly abnormal due to presence of mild generalized slowing consistent with nonspecific diffuse cerebral dysfunction such as seen in dementia and encephalopathy due to multiple potential causes including toxic, metabolic, autoimmune, infectious, medication related or multifocal structural abnormalities. Clinical correlation is recommended.
[2016-03-19 08:00] VITALS: BP 128/61
[2016-03-19] MEDS: HumaLOG INSULIN (NovoLOG) PER UNIT SC SCH ×4 (08:26→20:22)
[2016-03-19] MEDS: ASPIRIN 81 MG ENTERIC TAB PO SCH (08:26)
[2016-03-19] MEDS: DIGOXIN 0.125 MG TAB PO SCH (08:26)
[2016-03-19] MEDS: CitaloPRAM (CeleXA) 20 MG TAB PO SCH (08:26)
[2016-03-19] MEDS: PANTOPRAZOLE 40MG TAB (PROTONIX) PO SCH (08:27)
[2016-03-19 12:00] VITALS: BP 117/56
--- NOTE | 2016-03-19 14:04 | IPNPDOC ---
Assessment/Plan Date Seen The patient was seen on 03/19/16. Problems Problems: (1) Atrial fibrillation Status: Acute Problem Text: * On cardizem and digoxin. * Continues to switch between A fib and sinus rhythm. * Suspecting sick sinus syndrome. There are 2 episodes of asystole greater or equal to 3 sec on telemetry 03/19/16. Called Dr. Wheeler. Trial of decrease cardizem dose. (2) COPD (chronic obstructive pulmonary disease) Status: Chronic Response to Treatment: Improving Problem Text: * In process of steroid tapering. * continue with neb treatment. (3) Ischemic brain injury Status: Acute Response to Treatment: Stable Problem Text: * On ASA and warfarin. * Continue to follow neurology recommendation (4) Focal seizure Status: Acute Response to Treatment: Stable Problem Text: * Continue to follow neurology recommendation. (5) Macular degeneration Status: Chronic Response to Treatment: Stable (6) GERD (gastroesophageal reflux disease) Status: Chronic Response to Treatment: Stable (7) HTN (hypertension) Status: Chronic Response to Treatment: Stable (8) HLD (hyperlipidemia) Status: Chronic Response to Treatment: Stable (9) Hypothyroidism Status: Chronic Response to Treatment: Stable (10) Acute respiratory failure requiring reintubation Status: Resolved Plan / VTE VTE Prophylaxis Ordered?: Yes (warfarin) Subjective Review of Systems CC/HPI The patient is a 80-year-old female admitted with a reason for visit of Stroke. Events since last encounter Pt is seen and examed in the room today. She is still experiencing shortness of breath. On cardiac telemetry, she has 2 episodes of asystole greater or close to 3 seconds. it occurs at 5AM and 6AM. Objective Physical Examination General Exam: Positive: Alert, Cooperative, No Acute Distress Chest Exam: Positive: Diminished, Wheezing Heart Exam: Positive: Irregular Rhythm, Other (Heart rate is switching between A fib and sinus. there are episodes of bradycardia) Abdomen Exam: Positive: Normal bowel sounds, Soft, Negative: Tenderness Extremity Exam: Negative: Cyanosis, Edema Vital Signs/I&O Vital Signs Date Time Temp Pulse Resp B/P Pulse Ox O2 Delivery O2 Flow Rate FiO2 03/19/16 12:00 98.5 69 40 117/56 96 Nasal Cannula 2.0 03/16/16 17:20 50 I&O- Last 24 Hours up to 6 AM 03/19/16 06:00 Intake Total 1040 ml Output Total 1225 ml Balance -185 ml Laboratory Data Labs 24H Laboratory Tests 2 03/18/16 16:46: Bedside Glucose (Misc Panel) 182H 03/18/16 20:23: Bedside Glucose (Misc Panel) 103 03/19/16 04:52: Blood Urea Nitrogen 24H, Creatinine 0.66, Sodium Level 138, Potassium Level 4.2 , Chloride Level 98, Carbon Dioxide Level 34H, Calcium Level 8.7L, Phosphorus Level 2.7, Aspartate Amino Transf (AST/SGOT) 63H, Alanine Aminotransferase (ALT/ SGPT) 75, Lactate Dehydrogenase 221, Total Creatine Kinase 26, Alkaline Phosphatase 145H, Total Bilirubin 0.4, Triglycerides Level 77, Cholesterol Level 143, Total Protein 5.8L, Albumin 2.8L, Albumin/Globulin Ratio 0.93L, Anion Gap 6L, White Blood Count 8.2, Red Blood Count 3.60L, Hemoglobin 9.4L, Hematocrit 29.4L, Mean Corpuscular Volume 81.6, Mean Corpuscular Hemoglobin 26.0L, Mean Corpuscular Hemoglobin Concent 31.9L, Red Cell Distribution Width 19.6H, Platelet Count 326, Neutrophils (%) (Auto) 95.1H, Lymphocytes (%) (Auto) 2.9L, Monocytes (%) (Auto) 1.5, Eosinophils (%) (Auto) 0.1, Basophils (%) (Auto ) 0.0, Neutrophils # (Auto) 7.8H, Lymphocytes # (Auto) 0.2L, Monocytes # (Auto) 0.1, Eosinophils # (Auto) 0.0, Basophils # (Auto) 0.0, Glomerular Filtration Rate > 60.0, Large Unclassified Cells # 0.0, Large Unclassified Cells % 0.3, Prothromb Time International Ratio 2.08, Prothrombin Time 23.5H 03/19/16 07:41: Bedside Glucose (Misc Panel) 165H 03/19/16 11:23: Bedside Glucose (Misc Panel) 228H CBC/BMP Laboratory Tests 03/19/16 04:52 Calcium Level 8.7 L, Phosphorus Level 2.7, Aspartate Amino Transf (AST/SGOT) 63 H, Alanine Aminotransferase (ALT/SGPT) 75, Lactate Dehydrogenase 221, Total Creatine Kinase 26, Alkaline Phosphatase 145 H, Total Bilirubin 0.4, Triglycerides Level 77, Cholesterol Level 143, Total Protein 5.8 L, Albumin 2.8 L, Red Blood Count 3.60 L, Mean Corpuscular Volume 81.6, Mean Corpuscular Hemoglobin 26.0 L, Mean Corpuscular Hemoglobin Concent 31.9 L, Red Cell Distribution Width 19.6 H, Neutrophils (%) (Auto) 95.1 H, Lymphocytes (%) (Auto ) 2.9 L, Monocytes (%) (Auto) 1.5, Eosinophils (%) (Auto) 0.1, Basophils (%) ( Auto) 0.0, Neutrophils # (Auto) 7.8 H, Lymphocytes # (Auto) 0.2 L, Monocytes # ( Auto) 0.1, Eosinophils # (Auto) 0.0, Basophils # (Auto) 0.0 [facility] 03/15/16 MRSA Screen - Final, Complete RENEE PETERSON DO Mar 19, 2016 14:04
[2016-03-19 16:00] VITALS: BP 151/69
[2016-03-19] MEDS: WARFARIN SOD 2.5 MG TAB PO SCH (16:55)
[2016-03-19 20:00] VITALS: BP 137/60
[2016-03-19] MEDS ORDERED: methylPREDNISolone INJ 125 MG/2 ML VIAL (J2930) IV SCH (21:00)
[2016-03-19] MEDS: ALPRAZolam 0.5 MG TAB PO PRN (21:24)
[2016-03-20] VITALS: BP 137/64
[2016-03-20] MEDS: methylPREDNISolone INJ 125 MG/2 ML VIAL (J2930) IV SCH ×2 (00:01→12:21)
[2016-03-20] MEDS: IPRATROPIUM 0.5MG/ALBUTEROL 2.5MG INH SOL UD 3ML (DUONEB)(J7620) NEB SCH ×6 (02:26→23:39)
[2016-03-20 04:00] VITALS: BP 111/59
[2016-03-20 05:04] LABS: LARGE UNSTAINED CELL % 0.3 % (0.0-4.0); LYMPH # 0.3 K/mm3 (1.5-4.5); LYMPH % 2.7 % (24.0-44.0); MEAN CORPUSCULAR HEMOGLOBIN 25.8 pg (27.0-33.0); MEAN CORPUSCULAR HGB CONC 31.5 g/dl (32.0-36.5); MEAN CORPUSCULAR VOLUME 81.8 fl (80.0-96.0); MONO # 0.2 K/mm3 (0.0-0.8); MONO % 1.6 % (0.0-5.0); NEUTROPHILS # 8.9 K/mm3 (1.8-7.7); NEUTROPHILS % 95.4 % (36.0-66.0); PLATELET COUNT, AUTOMATED 326 k/mm3 (150-450); RED CELL DISTRIBUTION WIDTH 19.5 % (11.5-14.5); WHITE BLOOD COUNT 9.3 K/mm3 (4.0-10.0)
[2016-03-20 05:18] LABS: ALBUMIN 2.8 GM/DL (3.2-5.2); ALKALINE PHOSPHATASE 146 U/L (45-117); ALT/SGPT 113 U/L (12-78); ANION GAP 9 MEQ/L (8-16); AST/SGOT 62 U/L (15-37); BILIRUBIN,TOTAL 0.3 MG/DL (0.2-1.0); BLOOD UREA NITROGEN 28 MG/DL (7-18); CALCIUM LEVEL 8.8 MG/DL (8.8-10.2); CARBON DIOXIDE LEVEL 32 MEQ/L (21-32); CHLORIDE LEVEL 99 MEQ/L (98-107); CHOLESTEROL LEVEL 151 MG/DL (< 200); CREATININE FOR GFR 0.74 MG/DL (0.55-1.02); GLOMERULAR FILTRATION RATE > 60.0 (>32); GLUCOSE, FASTING 153 MG/DL (83-110); PHOSPHORUS LEVEL 2.9 MG/DL (2.5-4.9); POTASSIUM SERUM 4.3 MEQ/L (3.5-5.1); SODIUM LEVEL 140 MEQ/L (136-145); TOTAL PROTEIN 5.6 GM/DL (6.4-8.2); TRIGLYCERIDES LEVEL 81 MG/DL (<150)
[2016-03-20 05:23] LABS: INR 2.18
[2016-03-20] MEDS: LEVOTHYROXINE 0.025 MG TAB (25 MCG) PO SCH (05:58)
[2016-03-20] MEDS: SLF 3 ML SYR IV SCH ×3 (05:58→20:33)
[2016-03-20 08:00] VITALS: BP 158/83
[2016-03-20] MEDS: PANTOPRAZOLE 40MG TAB (PROTONIX) PO SCH (08:15)
[2016-03-20] MEDS: HumaLOG INSULIN (NovoLOG) PER UNIT SC SCH ×4 (08:15→20:50)
[2016-03-20] MEDS: DIGOXIN 0.125 MG TAB PO SCH (08:15)
[2016-03-20] MEDS: CitaloPRAM (CeleXA) 20 MG TAB PO SCH (08:15)
[2016-03-20] MEDS: ASPIRIN 81 MG ENTERIC TAB PO SCH (08:15)
[2016-03-20 12:00] VITALS: BP 169/81
--- NOTE | 2016-03-20 15:58 | IPNPDOC ---
Assessment/Plan Date Seen The patient was seen on 03/20/16. Problems Problems: (1) Atrial fibrillation Status: Acute Problem Text: * On cardizem and digoxin. * Continues to switch between A fib and sinus rhythm. * Suspecting sick sinus syndrome. There are 2 episodes of asystole greater or equal to 3 sec on telemetry 03/19/16. Called Dr. Wheeler. Trial of decrease cardizem dose. No more bradycardia or >3sec asystole so far. (2) COPD (chronic obstructive pulmonary disease) Status: Chronic Response to Treatment: Improving Problem Text: * In process of steroid tapering. Pt still has significant wheeze and congestion even with neb treatment. Will taper steroid slowly. * continue with neb treatment. (3) Ischemic brain injury Status: Acute Response to Treatment: Stable Problem Text: * On ASA and warfarin. * Continue to follow neurology recommendation (4) Focal seizure Status: Acute Response to Treatment: Stable Problem Text: * Continue to follow neurology recommendation. (5) Macular degeneration Status: Chronic Response to Treatment: Stable (6) GERD (gastroesophageal reflux disease) Status: Chronic Response to Treatment: Stable (7) HTN (hypertension) Status: Chronic Response to Treatment: Stable (8) HLD (hyperlipidemia) Status: Chronic Response to Treatment: Stable (9) Hypothyroidism Status: Chronic Response to Treatment: Stable (10) Acute respiratory failure requiring reintubation Status: Resolved Plan / VTE VTE Prophylaxis Ordered?: Yes (warfarin) Subjective Review of Systems CC/HPI The patient is a 80-year-old female admitted with a reason for visit of Stroke. Events since last encounter Pt is seen and examed in the room today. During the encounter, patient demonstrate some signs of confusion. She still requires O2 support. On cardiac telemetry, there is no more of 3 sec asystole which she had on 03/19/16 AM. Objective Physical Examination General Exam: Positive: Alert, Cooperative, No Acute Distress Chest Exam: Positive: Diminished, Wheezing Heart Exam: Positive: Irregular Rhythm, Other (Heart rate is switching between A fib and sinus. there are episodes of bradycardia) Abdomen Exam: Positive: Normal bowel sounds, Soft, Negative: Tenderness Extremity Exam: Negative: Cyanosis, Edema Vital Signs/I&O Vital Signs Date Time Temp Pulse Resp B/P Pulse Ox O2 Delivery O2 Flow Rate FiO2 03/20/16 12:21 120 03/20/16 12:00 97.6 33 169/81 97 Nasal Cannula 1.0 03/16/16 17:20 50 I&O- Last 24 Hours up to 6 AM 03/20/16 06:00 Intake Total 960 ml Output Total 1250 ml Balance -290 ml Laboratory Data Labs 24H Laboratory Tests 2 03/19/16 16:43: Bedside Glucose (Misc Panel) 140H 03/19/16 20:13: Bedside Glucose (Misc Panel) 157H 03/20/16 04:25: Blood Urea Nitrogen 28H, Creatinine 0.74, Sodium Level 140, Potassium Level 4.3 , Chloride Level 99, Carbon Dioxide Level 32, Calcium Level 8.8, Phosphorus Level 2.9, Aspartate Amino Transf (AST/SGOT) 62H, Alanine Aminotransferase (ALT/ SGPT) 113H, Lactate Dehydrogenase 229, Total Creatine Kinase 21L, Alkaline Phosphatase 146H, Total Bilirubin 0.3, Triglycerides Level 81, Cholesterol Level 151, Total Protein 5.6L, Albumin 2.8L, Albumin/Globulin Ratio 1.00, Anion Gap 9, White Blood Count 9.3, Red Blood Count 3.68L, Hemoglobin 9.5L, Hematocrit 30.1L, Mean Corpuscular Volume 81.8, Mean Corpuscular Hemoglobin 25.8L, Mean Corpuscular Hemoglobin Concent 31.5L, Red Cell Distribution Width 19.5H, Platelet Count 326, Neutrophils (%) (Auto) 95.4H, Lymphocytes (%) (Auto) 2.7L, Monocytes (%) (Auto) 1.6, Eosinophils (%) (Auto) 0.0, Basophils (%) (Auto ) 0.0, Neutrophils # (Auto) 8.9H, Lymphocytes # (Auto) 0.3L, Monocytes # (Auto) 0.2, Eosinophils # (Auto) 0.0, Basophils # (Auto) 0.0, Glomerular Filtration Rate > 60.0, Large Unclassified Cells # 0.0, Large Unclassified Cells % 0.3, Prothromb Time International Ratio 2.18, Prothrombin Time 24.3H 03/20/16 07:36: Bedside Glucose (Misc Panel) 152H 03/20/16 11:55: Bedside Glucose (Misc Panel) 174H CBC/BMP Laboratory Tests 03/20/16 04:25 Calcium Level 8.8, Phosphorus Level 2.9, Aspartate Amino Transf (AST/SGOT) 62 H , Alanine Aminotransferase (ALT/SGPT) 113 H, Lactate Dehydrogenase 229, Total Creatine Kinase 21 L, Alkaline Phosphatase 146 H, Total Bilirubin 0.3, Triglycerides Level 81, Cholesterol Level 151, Total Protein 5.6 L, Albumin 2.8 L, Red Blood Count 3.68 L, Mean Corpuscular Volume 81.8, Mean Corpuscular Hemoglobin 25.8 L, Mean Corpuscular Hemoglobin Concent 31.5 L, Red Cell Distribution Width 19.5 H, Neutrophils (%) (Auto) 95.4 H, Lymphocytes (%) (Auto ) 2.7 L, Monocytes (%) (Auto) 1.6, Eosinophils (%) (Auto) 0.0, Basophils (%) ( Auto) 0.0, Neutrophils # (Auto) 8.9 H, Lymphocytes # (Auto) 0.3 L, Monocytes # ( Auto) 0.2, Eosinophils # (Auto) 0.0, Basophils # (Auto) 0.0 Microbiology Microbiology 03/15/16 MRSA Screen - Final, Complete RENEE PETERSON DO Mar 20, 2016 15:58
[2016-03-20 16:00] VITALS: BP 155/81
[2016-03-20] MEDS: WARFARIN SOD 2.5 MG TAB PO SCH (16:49)
[2016-03-20 20:00] VITALS: BP 139/65
[2016-03-20] MEDS: ALPRAZolam 0.5 MG TAB PO PRN (21:20)
[2016-03-21] VITALS: BP 131/73
[2016-03-21] MEDS: methylPREDNISolone INJ 125 MG/2 ML VIAL (J2930) IV SCH ×2 (00:24→12:22)
[2016-03-21 04:00] VITALS: BP 143/68
[2016-03-21] MEDS: IPRATROPIUM 0.5MG/ALBUTEROL 2.5MG INH SOL UD 3ML (DUONEB)(J7620) NEB SCH ×6 (04:46→23:43)
[2016-03-21 04:49] LABS: EOS % 0.1 % (0.0-3.0); LARGE UNSTAINED CELL % 0.3 % (0.0-4.0); LYMPH # 0.3 K/mm3 (1.5-4.5); LYMPH % 2.9 % (24.0-44.0); MEAN CORPUSCULAR HEMOGLOBIN 26.1 pg (27.0-33.0); MEAN CORPUSCULAR HGB CONC 31.9 g/dl (32.0-36.5); MEAN CORPUSCULAR VOLUME 81.8 fl (80.0-96.0); MONO # 0.2 K/mm3 (0.0-0.8); MONO % 1.5 % (0.0-5.0); NEUTROPHILS # 9.9 K/mm3 (1.8-7.7); NEUTROPHILS % 95.2 % (36.0-66.0); PLATELET COUNT, AUTOMATED 339 k/mm3 (150-450); RED CELL DISTRIBUTION WIDTH 19.4 % (11.5-14.5); WHITE BLOOD COUNT 10.4 K/mm3 (4.0-10.0)
[2016-03-21 04:55] LABS: INR 2.22
[2016-03-21 05:04] LABS: ALBUMIN 2.8 GM/DL (3.2-5.2); ALBUMIN/GLOBULIN RATIO 1.08 (1.00-1.93); ALKALINE PHOSPHATASE 138 U/L (45-117); ALT/SGPT 104 U/L (12-78); ANION GAP 8 MEQ/L (8-16); AST/SGOT 43 U/L (15-37); BILIRUBIN,TOTAL 0.4 MG/DL (0.2-1.0); BLOOD UREA NITROGEN 28 MG/DL (7-18); CALCIUM LEVEL 8.5 MG/DL (8.8-10.2); CARBON DIOXIDE LEVEL 32 MEQ/L (21-32); CHLORIDE LEVEL 100 MEQ/L (98-107); CHOLESTEROL LEVEL 166 MG/DL (< 200); CREATININE FOR GFR 0.59 MG/DL (0.55-1.02); GLOMERULAR FILTRATION RATE > 60.0 (>32); GLUCOSE, FASTING 140 MG/DL (83-110); POTASSIUM SERUM 4.5 MEQ/L (3.5-5.1); SODIUM LEVEL 140 MEQ/L (136-145); TOTAL PROTEIN 5.4 GM/DL (6.4-8.2); TRIGLYCERIDES LEVEL 84 MG/DL (<150)
[2016-03-21] MEDS: SLF 3 ML SYR IV SCH ×3 (06:21→21:09)
[2016-03-21] MEDS: LEVOTHYROXINE 0.025 MG TAB (25 MCG) PO SCH (06:21)
[2016-03-21 08:00] VITALS: BP 156/79
[2016-03-21] MEDS: HumaLOG INSULIN (NovoLOG) PER UNIT SC SCH ×4 (08:04→21:00)
[2016-03-21] MEDS: ASPIRIN 81 MG ENTERIC TAB PO SCH (10:06)
[2016-03-21] MEDS: PANTOPRAZOLE 40MG TAB (PROTONIX) PO SCH (10:06)
[2016-03-21] MEDS: CitaloPRAM (CeleXA) 20 MG TAB PO SCH (10:06)
[2016-03-21] MEDS: DIGOXIN 0.125 MG TAB PO SCH (10:06)
[2016-03-21 12:00] VITALS: BP 137/88
--- NOTE | 2016-03-21 14:12 | CR.PDOC ---
[facility] Cardiology Consultation Date of Consultation 03/21/16 Cadiology Consultation REFERRING PHYSICIAN: Dr. Willa Mukherjee REASON FOR REFERRAL: Atrial fibrillation (paroxysmal) with rapid ventricular response, sick sinus syndrome/tachycardia-bradycardia syndrome. HISTORY OF PRESENT ILLNESS: 80-year-old woman who was hospitalized this admission with a stroke. She is known to have paroxysmal atrial fibrillation with rapid ventricle response, systemic hypertension, CAD, COPD, and a previous stroke. On admission she was on aspirin, digoxin 0.125 mg daily, diltiazem ER 240 mg twice a day, metoprolol succinate 50 mg daily, theophylline ER 300 mg daily, and warfarin. Telemetry strip 03/17/2016 at 518 hours showed a 3.6 second R-R interval when she converted from atrial fibrillation ablation to sinus mechanism. Following this Dr. Willa Mukherjee spoke by telephone with Dr. Minesh Wheeler for telephone advice and was instructed to decrease diltiazem to 60 mg every 6 hours, continue digoxin, and discontinue metoprolol succinate. Since then the patient has not had any further R-R interval's in excess of 3.0 seconds; she continues to have paroxysmal atrial fibrillation and in atrial fibrillation has heart rates at rest while awake up to 120s (asymptomatic). No prior heart attack to her knowledge. No previous percutaneous coronary interventions. Echocardiogram Doppler 03/26/2015 [[facility]] reported normal LV size, wall thickness, and LV systolic function. LVEF 65%-70%. Normal left atrial size. Normal right ventricle and right atrial size. Mild aortic valve sclerosis with mild aortic regurgitation. Mild mitral annular calcification with moderate mitral regurgitation. Normal estimated pulmonary artery systolic pressure. Cardiovascular symptoms Stroke (this hospitalization). She's also had a previous stroke. Patient reports chronic exertional dyspnea with less than ordinary activities of daily living. She reports that her exertional dyspnea has improved since being admitted. No chest, neck, upper extremity, or epigastric pain, pressure, tightness, heaviness, squeezing, or burning with or without exertion. No orthopnea, or paroxysmal nocturnal dyspnea. No leg or ankle edema. No presyncope or syncope. No palpitations. No claudication. ALLERGIES: Please see below. HOME MEDICATIONS: Please see below. CURRENT MEDICATIONS: Please see below. PAST MEDICAL & SURGICAL HISTORY: CAD (inaja vessel) Paroxysmal atrial fibrillation with rapid ventricular response Systemic hypertension (primary) COPD Prior heavy smoking history (quit 2007) Prior stroke right basal ganglia (2013) Left occipital Stroke (03/15/2016) Respiratory failure (this hospitalization) [employer] malignancy Right middle cerebral artery aneurysm Osteoarthritis Bilateral Cataracts status post cataract extraction Prior left femoral fracture. Dyslipidemia Depression Peripheral arterial disease ASCVD GERD Macular degeneration Hypothyroidism Thoracic aortic aneurysm Anemia Appendectomy SOCIAL HISTORY: The patient's mother and father are both .. No further history is available from her at the present time. Her sister is known to have a history of leukemia. PERSONAL AND SOCIAL HISTORY: Resident of [place]. Smoking in the past which she quit about 8 years ago. There is no history of any alcohol or drug abuse. FAMILY HISTORY: Mother and father both . Sister with leukemia. REVIEW OF SYSTEMS: As per HPI above. All other 10 point review of systems questions negative. PHYSICAL EXAMINATION: VITAL SIGNS: Please see below. GENERAL APPEARANCE: Underweight/cachectic woman. Not in any respiratory or psychologic distress. No gross head, facial, or skeletal deformities. EYES: No conjunctival pallor, scleral icterus or xanthelasma. ENT/Mouth: Some missing teeth. NECK: Jugular Venous Pulsations: 3 cm Trachea midline. No palpable thyroid. EXTREMITIES: No clubbing, nailbed cyanosis, or splinter hemorrhages. SKIN: No skin lesions, pallor, or icterus. NEUROLOGIC/PSYCHOLOGIC: Oriented to person, place, and time. Mood and affect normal. Speech normal. MUSCULOSKELETAL: Curvature of the spine normal. Gross motor strength and tone normal. No muscle atrophy, fasciculations, or tremors. Gait not appropriate to test at this time. THORAX: Breathing appears unlabored with normal expansion. No dullness to percussion. Mildly diminished breath sound intensity. No crackles, wheezes, or prolonged expiration. HEART: No anterior chest scars or devices. No palpable apex beat. No left parasternal lifts, heaves, or thrills. Variable S1 & S2. No S3. No systolic clicks, opening snap, pericardial knock, or pericardial friction rubs No murmurs. ARTERIAL PULSES: Carotids normal in volume and contour and without bruits. No palpable abdominal aorta. Pedal pulses 2+/2 LOWER EXTREMITY EDEMA: No edema. ABDOMEN: Abdomen soft nontender with normal bowel sounds. No abdominal bruits. No hepatomegaly, splenomegaly, or abdominal masses. Liver span (right midclavicular line): 10 cm Stool for occult blood not indicated. Electrocardiogram: No ECG this hospitalization thus far. ECG 03/25/2015 at 2323 hrs. reported atrial fibrillation with rapid ventricular response, 135 BPM, ST depression, consider subendocardial injury. LABORATORY DATA: Please see below. IMAGING: Portable AP chest x-ray 03/17/2016 reported mild increase in vascular congestion , diffuse interstitial edema and bibasilar alveolar infiltrates. Small effusions. ASSESSMENT/PLAN: 1. Paroxysmal atrial fibrillation with rapid ventricle response. While on digoxin 0.125 mg daily, diltiazem CD 240 mg twice a day, and metoprolol 50 mg/d she was observed to have a 3.6 second R-R interval when she spontaneously converted from atrial fibrillation to sinus mechanism. Since then diltiazem was decreased down to 60 mg every 6 hours and metoprolol was discontinued; following these medication changes she has not been observed to have any further R-R interval's in excess of 3.0 seconds. No palpitations. CHADS2-VASc = 7 (HTN, female, age >75, prior stroke, ASCVD). Agree with warfarin (target INR 2.0-3.0) and concomitant use of low-dose aspirin because of ASCVD. Agree with discontinuation of beta gabe especially in view of this patient's COPD. Agree with discontinuation of theophylline. Recommend discontinuation of digoxin. Recommend increasing diltiazem to 90 mg every 6 hours. Continue to observe for RR intervals in excess of 3.0 seconds. 2. CAD (inaja vessel) without angina. Diltiazem as above. Continue aspirin and warfarin. Suggest addition of an ACEI or ARB. 3. Primary systemic hypertension. Blood pressure controlled. Continue diltiazem as above. Consider addition of ACEI or ARB because of ASCVD. Thank you kindly for asking me to participate in the care of your patient. Vital Signs/I&O Vital Signs Date Time Temp Pulse Resp B/P Pulse Ox O2 Delivery O2 Flow Rate FiO2 03/21/16 12:00 97.7 99 24 137/88 92 Room Air 03/21/16 08:00 1.0 03/16/16 17:20 50 I&O- Last 24 Hours up to 6 AM 03/21/16 06:00 Intake Total 1530 ml Output Total 1650 ml Balance -120 ml Laboratory Data Labs 24H Laboratory Tests 2 03/20/16 16:44: Bedside Glucose (Misc Panel) 114H 03/20/16 20:32: Bedside Glucose (Misc Panel) 146H 03/21/16 04:25: Blood Urea Nitrogen 28H, Creatinine 0.59, Sodium Level 140, Potassium Level 4.5 , Chloride Level 100, Carbon Dioxide Level 32, Calcium Level 8.5L, Phosphorus Level 3.0, Aspartate Amino Transf (AST/SGOT) 43H, Alanine Aminotransferase (ALT/ SGPT) 104H, Lactate Dehydrogenase 238, Total Creatine Kinase 28, Alkaline Phosphatase 138H, Total Bilirubin 0.4, Triglycerides Level 84, Cholesterol Level 166, Total Protein 5.4L, Albumin 2.8L, Albumin/Globulin Ratio 1.08, Anion Gap 8, White Blood Count 10.4H, Red Blood Count 3.87L, Hemoglobin 10.1L, Hematocrit 31.7L, Mean Corpuscular Volume 81.8, Mean Corpuscular Hemoglobin 26.1L, Mean Corpuscular Hemoglobin Concent 31.9L, Red Cell Distribution Width 19.4H, Platelet Count 339, Neutrophils (%) (Auto) 95.2H, Lymphocytes (%) (Auto) 2.9L, Monocytes (%) (Auto) 1.5, Eosinophils (%) (Auto) 0.1, Basophils (%) (Auto ) 0.0, Neutrophils # (Auto) 9.9H, Lymphocytes # (Auto) 0.3L, Monocytes # (Auto) 0.2, Eosinophils # (Auto) 0.0, Basophils # (Auto) 0.0, Glomerular Filtration Rate > 60.0, Large Unclassified Cells # 0.0, Large Unclassified Cells % 0.3, Prothromb Time International Ratio 2.22, Prothrombin Time 24.7H 03/21/16 12:13: Bedside Glucose (Misc Panel) 256H CBC/BMP Laboratory Tests 03/21/16 04:25 Calcium Level 8.5 L, Phosphorus Level 3.0, Aspartate Amino Transf (AST/SGOT) 43 H, Alanine Aminotransferase (ALT/SGPT) 104 H, Lactate Dehydrogenase 238, Total Creatine Kinase 28, Alkaline Phosphatase 138 H, Total Bilirubin 0.4, Triglycerides Level 84, Cholesterol Level 166, Total Protein 5.4 L, Albumin 2.8 L, Red Blood Count 3.87 L, Mean Corpuscular Volume 81.8, Mean Corpuscular Hemoglobin 26.1 L, Mean Corpuscular Hemoglobin Concent 31.9 L, Red Cell Distribution Width 19.4 H, Neutrophils (%) (Auto) 95.2 H, Lymphocytes (%) (Auto ) 2.9 L, Monocytes (%) (Auto) 1.5, Eosinophils (%) (Auto) 0.1, Basophils (%) ( Auto) 0.0, Neutrophils # (Auto) 9.9 H, Lymphocytes # (Auto) 0.3 L, Monocytes # ( Auto) 0.2, Eosinophils # (Auto) 0.0, Basophils # (Auto) 0.0 FSBS Laboratory Tests Test 03/20/16 16:44 03/20/16 20:32 03/21/16 12:13 Range/Units Bedside Glucose (Misc Panel) 114 146 256 83-110 MG/DL Microbiology Microbiology 03/15/16 MRSA Screen - Final, Complete Home Medications Scheduled (Lutein Vision Blend) 1 Cap Cap 1 CAP PO DAILY (Reported) Aspirin (Aspirin 81) 81 Mg Tab 81 MG PO DAILY (Reported) Atorvastatin Calcium (Atorvastatin Calcium) 80 Mg Tab 80 MG PO DAILY (Reported ) Citalopram Hydrobromide (Citalopram Hydrobromide) 20 Mg Tab 20 MG PO DAILY ( Reported) Digoxin (Digoxin) 0.125 Mg Tab 0.125 MG PO DAILY (Reported) Diltiazem Hcl (Diltiazem HCl ER) 240 Mg Cap 240 MG PO BID (Reported) Levothyroxine Sodium (Synthroid) 50 Mcg Tab 50 MCG PO DAILY (Reported) Lisinopril (Lisinopril) 5 Mg Tab 5 MG PO DAILY (Reported) Metoprolol Succinate (Metoprolol Succinate ER) 50 Mg Tab 50 MG PO DAILY ( Reported) Pantoprazole Sodium (Pantoprazole Sodium) 40 Mg Tab 40 MG PO DAILY (Reported) Theophylline (Theophylline ER) 300 Mg Tabcr 300 MG PO DAILY (Reported) Warfarin Sod (Coumadin) 2 Mg Tab 2 MG PO DAILY (Reported) Scheduled PRN Alprazolam (Xanax) 0.5 Mg Tab 0.5 MG PO PRN PRN PRN ANXIETY (Reported) Docusate Sodium (Stool Softener) 100 Mg Cap 100 MG PO DAILY PRN PRN CONSTIPATION (Reported) Current Medications Current Medications Albuterol Sulfate (Proventil Neb) 2.5 mg Q2HP PRN NEB SOB/WHEEZING Last administered on 03/16/16at 17:52; Start 03/16/16 at 10:45; Stop 04/15/16 at 10: 44 Albuterol Sulfate (Proventil Neb) 2.5 mg STK-MED ONCE As Ordered ; Start at 10:31; Stop 03/16/16 at 10:32; Status DC Albuterol/ Ipratropium (Duoneb (Ipr 0.5mg/Alb 2.5mg)) 3 ml Q2HP PRN NEB SOB/ WHEEZING Last administered on 03/16/16at 10:01; Start 03/16/16 at 10:00; Stop 03/16/16 at 10:37; Status DC Albuterol/ Ipratropium (Duoneb (Ipr 0.5mg/Alb 2.5mg)) 3 ml RQ4H NEB Last administered on 03/21/16at 11:20; Start 03/16/16 at 12:00; Stop 04/15/16 at 11: 59 Albuterol/ Ipratropium 3 ml 3 ml RQID NEB Last administered on 03/16/16at 07:18 ; Start 03/15/16 at 08:00; Stop 03/16/16 at 10:37; Status DC Alprazolam (Xanax) 0.5 mg BIDP PRN PO ANXIETY Last administered on 03/20/16at 21:20; Start 03/17/16 at 10:45; Stop 03/24/16 at 10:44 Aspirin (Ecotrin) 81 mg DAILY PO Last administered on 03/21/16at 10:06; Start 03/16/16 at 09:00; Stop 04/15/16 at 08:59 Aspirin (Ecotrin) 81 mg ONCE ONCE PO Last administered on 03/15/16at 22:10; Start 03/15/16 at 21:15; Stop 03/15/16 at 21:16; Status DC Chlorhexidine Gluconate (Peridex Oral Rinse) SWAB/BRUSH ORAL CAVITY BID MT Last administered on 03/15/16at 08:48; Start 03/15/16 at 09:00; Stop 03/15/16 at 12:29; Status DC Citalopram Hydrobromide (CeleXA) 20 mg DAILY PO Last administered on at 10:06; Start 03/17/16 at 09:00; Stop 04/16/16 at 08:59 Dextrose (Dextrose 50%) 25 ml ASDIRECTED PRN IV SEE LABEL COMMENTS; Start at 04:30; Stop 04/14/16 at 04:29 Dextrose/Sodium Chloride (Dextrose 5%/ 0.9% Sodium Chloride) 1,000 ml @ 60 mls /hr [id number] IV Last administered on 03/15/16at 22:10; Start 03/15/16 at 05:15 ; Stop 03/16/16 at 09:44; Status DC Digoxin (Lanoxin) 0.125 mg DAILY PO Last administered on 03/21/16at 10:06; Start 03/15/16 at 09:00; Stop 03/21/16 at 13:26; Status DC Diltiazem HCl (Cardizem Cd) 240 mg BID PO Last administered on 03/18/16at 20:57 ; Start 03/17/16 at 09:00; Stop 03/19/16 at 07:47; Status DC Diltiazem HCl (Cardizem Cd) 240 mg NOW ONCE PO Last administered on at 19:44; Start 03/16/16 at 19:30; Stop 03/16/16 at 19:31; Status DC Diltiazem HCl (Cardizem) 60 mg Q6H PO Last administered on 03/20/16at 17:43; Start 03/19/16 at 06:00; Stop 03/21/16 at 13:26; Status DC Furosemide (Lasix) 40 mg DAILY IV ; Start 03/17/16 at 09:00; Stop 03/17/16 at 09:00; Status DC Furosemide (Lasix) 40 mg ONCE ONCE IV ; Start 03/16/16 at 12:45; Stop at 12:45; Status DC Furosemide (Lasix) 40 mg ONCE ONCE IV Last administered on 03/16/16at 12:49; Start 03/16/16 at 13:00; Stop 03/16/16 at 13:01; Status DC Furosemide (Lasix) 40 mg ONCE ONCE IV Last administered on 03/16/16at 17:33; Start 03/16/16 at 17:45; Stop 03/16/16 at 17:46; Status DC Glucagon (Glucagon) 1 mg ASDIRECTED PRN SC SEE LABEL COMMENTS; Start 03/15/16 at 04:30; Stop 04/14/16 at 04:29 Glucose (Glucose) 16 GM ASDIRECTED PRN PO SEE LABEL COMMENTS; Start 03/15/16 at 04:30; Stop 04/14/16 at 04:29 Home Med (Med Rec Complete!) ASDIRECTED XX ; Start 03/15/16 at 18:15; Stop at 18:18; Status DC Insulin Human Lispro (HumaLOG INSULIN) SEE PROTOCOL TABLE AC SC Last administered on 03/21/16at 12:22; Start 03/16/16 at 12:00; Stop 04/15/16 at 11: 59 Insulin Human Lispro (HumaLOG INSULIN) SEE PROTOCOL TABLE Q6H SC Last administered on 03/16/16at 06:37; Start 03/15/16 at 06:00; Stop 03/16/16 at 09 :42; Status DC Insulin Human Lispro (HumaLOG INSULIN) SEE PROTOCOL TABLE QHS SC ; Start at 21:00; Stop 04/15/16 at 20:59 Levothyroxine Sodium (Synthroid) 0.025 mg DAILY@06 PO Last administered on at 06:21; Start 03/15/16 at 06:00; Stop 04/14/16 at 05:59 Levothyroxine Sodium (Synthroid) 0.0625 mg DAILY@06 PO ; Start 03/15/16 at 06: 00; Stop 03/15/16 at 06:00; Status DC Methylprednisolone (SOLUmedrol) 60 mg Q12H IV Last administered on 03/21/16at 12:22; Start 03/20/16 at 01:00; Stop 04/19/16 at 00:59 Methylprednisolone (SOLUmedrol) 80 mg BID IV ; Start 03/19/16 at 21:00; Stop 03/19/16 at 21:00; Status DC Methylprednisolone (SOLUmedrol) 80 mg ONCE ONCE IV Last administered on at 12:47; Start 03/16/16 at 11:00; Stop 03/16/16 at 11:01; Status DC Methylprednisolone (SOLUmedrol) 80 mg Q8H IV Last administered on 03/19/16at 12 :35; Start 03/16/16 at 13:00; Stop 03/19/16 at 13:48; Status DC Midazolam HCl (Versed) 2 mg Q15MP PRN IV AGITATION; Start 03/15/16 at 04:15; Stop 03/15/16 at 12:29; Status DC Morphine Sulfate (Morphine Sulfate Inj) 2 mg Q2HP PRN IV PAIN; Start 03/15/16 at 04:15; Stop 03/15/16 at 12:29; Status DC Norepinephrine Bitartrate 8 mg 8 mg STK-MED ONCE As Ordered ; Start 03/15/16 at 05:05; Stop 03/15/16 at 05:06; Status DC Norepinephrine Bitartrate/ Dextrose (Levophed/ Dextrose 5%) 508 ml @ 5 mls/hr Q24H IV ; Start 03/15/16 at 05:00; Stop 03/15/16 at 12:29; Status DC Pantoprazole Sodium (Protonix) 40 mg DAILY IV Last administered on 03/15/16at 08:48; Start 03/15/16 at 09:00; Stop 03/16/16 at 09:42; Status DC Pantoprazole Sodium (Protonix) 40 mg DAILY PO Last administered on 03/21/16at 10:06; Start 03/16/16 at 09:00; Stop 04/15/16 at 08:59 Pantoprazole Sodium (Protonix) 40 mg DAILY PO ; Start 03/17/16 at 09:00; Stop 03/17/16 at 09:00; Status DC Sodium Chloride (Saline Lock Flush) 2 ml ASDIRECTED PRN IV SEE LABEL COMMENTS; Start 03/18/16 at 13:45; Stop 04/17/16 at 13:44 Sodium Chloride (Saline Lock Flush) 2 ml SLF IV Last administered on at 06:21; Start 03/18/16 at 14:00; Stop 04/17/16 at 13:59 Verapamil HCl (Calan) 2.5 mg STAT STAT IV Last administered on 03/16/16at 22: 59; Start 03/16/16 at 22:49; Stop 03/16/16 at 22:50; Status DC Warfarin Sodium (Coumadin) 2.5 mg DAILY@17 PO Last administered on 03/20/16at 16:49; Start 03/16/16 at 17:00; Stop 03/23/16 at 16:59 Warfarin Sodium (Coumadin) 2.5 mg ONCE ONCE PO Last administered on at 22:10; Start 03/15/16 at 21:15; Stop 03/15/16 at 21:16; Status DC Allergies Allergies: Coded Allergies: Prednisone (Unverified Allergy, Unknown, rash, 11/05/14) Regino Lua Mar 21, 2016 13:37
--- NOTE | 2016-03-21 14:46 | IPNPDOC ---
Assessment/Plan Date Seen The patient was seen on 03/21/16. Problems Problems: (1) Atrial fibrillation Status: Acute Problem Text: * Was on cardizem and digoxin. * Continues to switch between A fib and sinus rhythm. * Suspecting sick sinus syndrome. There are 2 episodes of asystole greater or equal to 3 sec on telemetry 03/19/16. Called Dr. Wheeler. Trial of decrease cardizem dose. No more bradycardia or >3sec asystole so far. * Consulted cardiology, Dr. Lua. (2) COPD (chronic obstructive pulmonary disease) Status: Chronic Response to Treatment: Improving Problem Text: * In process of steroid tapering. Pt still has significant wheeze and congestion even with neb treatment. Will taper steroid slowly. * continue with neb treatment. (3) Ischemic brain injury Status: Acute Response to Treatment: Stable Problem Text: * On ASA and warfarin. * Continue to follow neurology recommendation (4) Focal seizure Status: Acute Response to Treatment: Stable Problem Text: * Continue to follow neurology recommendation. 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 However, since the reduction of cardizem, pt has frequent episodes of tachycardia with rate greater 130. * Consulted cardiology, Dr. Lua. Plan / VTE VTE Prophylaxis Ordered?: Yes (warfarin) Subjective Review of Systems CC/HPI The patient is a 80-year-old female admitted with a reason for visit of Stroke. Events since last encounter Pt is seen and examed in the room today. Pt continues to have significant shortness of breath that requires O2 support. On cardiac telemetry, patient has multiple episodes of tachycardia with heart rate greater than 130. No recurrence of >3 sec asystole. Objective Physical Examination General Exam: Positive: Alert, Cooperative, No Acute Distress Chest Exam: Positive: Diminished, Wheezing Heart Exam: Positive: Irregular Rhythm, Other (Heart rate is switching between A fib and sinus. there are episodes of bradycardia) Abdomen Exam: Positive: Normal bowel sounds, Soft, Negative: Tenderness Extremity Exam: Negative: Cyanosis, Edema Vital Signs/I&O Vital Signs Date Time Temp Pulse Resp B/P Pulse Ox O2 Delivery O2 Flow Rate FiO2 03/21/16 13:48 111 03/21/16 12:00 97.7 24 137/88 92 Room Air 03/21/16 08:00 1.0 03/16/16 17:20 50 I&O- Last 24 Hours up to 6 AM 03/21/16 06:00 Intake Total 1530 ml Output Total 1650 ml Balance -120 ml Laboratory Data Labs 24H Laboratory Tests 2 03/20/16 16:44: Bedside Glucose (Misc Panel) 114H 03/20/16 20:32: Bedside Glucose (Misc Panel) 146H 03/21/16 04:25: Blood Urea Nitrogen 28H, Creatinine 0.59, Sodium Level 140, Potassium Level 4.5 , Chloride Level 100, Carbon Dioxide Level 32, Calcium Level 8.5L, Phosphorus Level 3.0, Aspartate Amino Transf (AST/SGOT) 43H, Alanine Aminotransferase (ALT/ SGPT) 104H, Lactate Dehydrogenase 238, Total Creatine Kinase 28, Alkaline Phosphatase 138H, Total Bilirubin 0.4, Triglycerides Level 84, Cholesterol Level 166, Total Protein 5.4L, Albumin 2.8L, Albumin/Globulin Ratio 1.08, Anion Gap 8, White Blood Count 10.4H, Red Blood Count 3.87L, Hemoglobin 10.1L, Hematocrit 31.7L, Mean Corpuscular Volume 81.8, Mean Corpuscular Hemoglobin 26.1L, Mean Corpuscular Hemoglobin Concent 31.9L, Red Cell Distribution Width 19.4H, Platelet Count 339, Neutrophils (%) (Auto) 95.2H, Lymphocytes (%) (Auto) 2.9L, Monocytes (%) (Auto) 1.5, Eosinophils (%) (Auto) 0.1, Basophils (%) (Auto ) 0.0, Neutrophils # (Auto) 9.9H, Lymphocytes # (Auto) 0.3L, Monocytes # (Auto) 0.2, Eosinophils # (Auto) 0.0, Basophils # (Auto) 0.0, Glomerular Filtration Rate > 60.0, Large Unclassified Cells # 0.0, Large Unclassified Cells % 0.3, Prothromb Time International Ratio 2.22, Prothrombin Time 24.7H 03/21/16 12:13: Bedside Glucose (Misc Panel) 256H CBC/BMP Laboratory Tests 03/21/16 04:25 Calcium Level 8.5 L, Phosphorus Level 3.0, Aspartate Amino Transf (AST/SGOT) 43 H, Alanine Aminotransferase (ALT/SGPT) 104 H, Lactate Dehydrogenase 238, Total Creatine Kinase 28, Alkaline Phosphatase 138 H, Total Bilirubin 0.4, Triglycerides Level 84, Cholesterol Level 166, Total Protein 5.4 L, Albumin 2.8 L, Red Blood Count 3.87 L, Mean Corpuscular Volume 81.8, Mean Corpuscular Hemoglobin 26.1 L, Mean Corpuscular Hemoglobin Concent 31.9 L, Red Cell Distribution Width 19.4 H, Neutrophils (%) (Auto) 95.2 H, Lymphocytes (%) (Auto ) 2.9 L, Monocytes (%) (Auto) 1.5, Eosinophils (%) (Auto) 0.1, Basophils (%) ( Auto) 0.0, Neutrophils # (Auto) 9.9 H, Lymphocytes # (Auto) 0.3 L, Monocytes # ( Auto) 0.2, Eosinophils # (Auto) 0.0, Basophils # (Auto) 0.0 Microbiology Microbiology 03/15/16 MRSA Screen - Final, Complete RENEE PETERSON DO Mar 21, 2016 14:46
[2016-03-21] MEDS: TELMISARTAN 20 MG TAB PO SCH (15:48)
[2016-03-21 16:00] VITALS: BP 138/63
[2016-03-21] MEDS: WARFARIN SOD 2.5 MG TAB PO SCH (17:55)
[2016-03-21 20:00] VITALS: BP 130/70
[2016-03-22] VITALS (8 sets, daily range): BP systolic 132–159; BP diastolic 61–79; O2SAT 97–98
[2016-03-22] MEDS: methylPREDNISolone INJ 125 MG/2 ML VIAL (J2930) IV SCH ×2 (00:09→12:19)
[2016-03-22] MEDS: IPRATROPIUM 0.5MG/ALBUTEROL 2.5MG INH SOL UD 3ML (DUONEB)(J7620) NEB SCH ×6 (04:00→23:13)
[2016-03-22 05:14] LABS: BASO # 0.1 K/mm3 (0.0-0.2); BASO % 0.6 % (0.0-1.0); EOS % 0.2 % (0.0-3.0); LARGE UNSTAINED CELL % 0.3 % (0.0-4.0); LYMPH # 0.3 K/mm3 (1.5-4.5); LYMPH % 1.8 % (24.0-44.0); MEAN CORPUSCULAR HEMOGLOBIN 25.2 pg (27.0-33.0); MEAN CORPUSCULAR HGB CONC 30.9 g/dl (32.0-36.5); MEAN CORPUSCULAR VOLUME 81.8 fl (80.0-96.0); MONO # 0.3 K/mm3 (0.0-0.8); MONO % 2.2 % (0.0-5.0); NEUTROPHILS # 13.7 K/mm3 (1.8-7.7); PLATELET COUNT, AUTOMATED 355 k/mm3 (150-450); RED CELL DISTRIBUTION WIDTH 20.9 % (11.5-14.5); WHITE BLOOD COUNT 14.4 K/mm3 (4.0-10.0)
[2016-03-22 05:18] LABS: INR 1.91
[2016-03-22] MEDS: SLF 3 ML SYR IV SCH ×3 (05:19→22:00)
[2016-03-22] MEDS: LEVOTHYROXINE 0.025 MG TAB (25 MCG) PO SCH (05:19)
[2016-03-22 05:32] LABS: ALBUMIN 2.8 GM/DL (3.2-5.2); ALBUMIN/GLOBULIN RATIO 1.08 (1.00-1.93); ALKALINE PHOSPHATASE 137 U/L (45-117); ALT/SGPT 164 U/L (12-78); ANION GAP 8 MEQ/L (8-16); AST/SGOT 68 U/L (15-37); BILIRUBIN,TOTAL 0.4 MG/DL (0.2-1.0); BLOOD UREA NITROGEN 32 MG/DL (7-18); CALCIUM LEVEL 8.7 MG/DL (8.8-10.2); CARBON DIOXIDE LEVEL 31 MEQ/L (21-32); CHLORIDE LEVEL 101 MEQ/L (98-107); CHOLESTEROL LEVEL 182 MG/DL (< 200); CREATININE FOR GFR 0.65 MG/DL (0.55-1.02); GLOMERULAR FILTRATION RATE > 60.0 (>32); GLUCOSE, FASTING 140 MG/DL (83-110); PHOSPHORUS LEVEL 3.4 MG/DL (2.5-4.9); POTASSIUM SERUM 4.5 MEQ/L (3.5-5.1); SODIUM LEVEL 140 MEQ/L (136-145); TOTAL PROTEIN 5.4 GM/DL (6.4-8.2); TRIGLYCERIDES LEVEL 84 MG/DL (<150)
--- NOTE | 2016-03-22 06:19 | ECGEPIP ---
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
[2016-03-22] MEDS: HumaLOG INSULIN (NovoLOG) PER UNIT SC SCH ×4 (07:35→21:00)
--- NOTE | 2016-03-22 08:38 | REP ---
Clinical: Shortness of breath. Comparison: 03/17/2016. Findings: Bibasilar infiltrates and small layering pleural effusions are again identified similar to prior examination. However, left lower lobe infiltrate may be slightly increased. Underlying diffuse chronic interstitial changes noted. Mediastinum and cardiac silhouette stable. No pneumothorax. Skeletal structures demonstrate age-related osteopenia and degenerative changes. Impression: Continued bibasilar infiltrates and pleural effusions similar to prior examination. Possible increased left lower lobe/retrocardiac infiltrate. Signed by Cali Alberto MD 03/22/2016 08:30 A
[2016-03-22] MEDS: CitaloPRAM (CeleXA) 20 MG TAB PO SCH (08:57)
[2016-03-22] MEDS: PANTOPRAZOLE 40MG TAB (PROTONIX) PO SCH (08:57)
[2016-03-22] MEDS: TELMISARTAN 20 MG TAB PO SCH (08:57)
[2016-03-22] MEDS: ASPIRIN 81 MG ENTERIC TAB PO SCH (08:57)
--- NOTE | 2016-03-22 09:57 | IPNPDOC ---
Assessment/Plan Date Seen The patient was seen on 03/22/16. Problems Problems: (1) Acute respiratory failure requiring reintubation Status: Acute Problem Text: * Pt was admitted with acute respiratory failure requiring intubation. Pt was extubated. She continues having shortness of breath and requires continuous O2 support. * Pt has been on IV steroid and breathing treatment. * Pt has no sign of aspiration. * On 03/22/16, temp of >99. RR >30. Follow up repeated CXR, CRP and BNP. (2) Atrial fibrillation Status: Acute Problem Text: * Was on cardizem and digoxin. * Continues to switch between A fib and sinus rhythm. * Suspecting sick sinus syndrome. There are 2 episodes of asystole greater or equal to 3 sec on telemetry 03/19/16. Called Dr. Wheeler. Trial of decrease cardizem dose. No more bradycardia or >3sec asystole so far. * Consulted cardiology, Dr. Lua. (3) COPD (chronic obstructive pulmonary disease) Status: Chronic Response to Treatment: Improving Problem Text: * In process of steroid tapering. Pt still has significant wheeze and congestion even with neb treatment. Will taper steroid slowly. * continue with neb treatment. (4) Ischemic brain injury Status: Acute Response to Treatment: Stable Problem Text: * On ASA and warfarin. * Continue to follow neurology recommendation (5) Focal seizure Status: Acute Response to Treatment: Stable Problem Text: * Continue to follow neurology recommendation. 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 However, since the reduction of cardizem, pt has frequent episodes of tachycardia with rate greater 130. * Consulted cardiology, Dr. Lua. (12) Leukocytosis Status: Acute Problem Text: * Pt has been on IV steroid. * CRP is normal. leukocytosis possibly due to steroid instead of acute infection Plan / VTE VTE Prophylaxis Ordered?: Yes (warfarin) Subjective Review of Systems CC/HPI The patient is a 80-year-old female admitted with a reason for visit of Stroke. Events since last encounter Pt is seen and examed in the room today. Pt continues to have shortness of breath. Pt denies shocking on food. Denies fever or chill. denies any chest pain. Objective Physical Examination General Exam: Positive: Alert, Cooperative, No Acute Distress Chest Exam: Positive: Diminished, Rhonchi, Wheezing Heart Exam: Positive: Irregular Rhythm, Other (Heart rate is switching between A fib and sinus. there are episodes of bradycardia) Abdomen Exam: Positive: Normal bowel sounds, Soft, Negative: Tenderness Extremity Exam: Negative: Cyanosis, Edema Vital Signs/I&O Vital Signs Date Time Temp Pulse Resp B/P Pulse Ox O2 Delivery O2 Flow Rate FiO2 03/22/16 08:00 97.5 81 27 143/67 96 Nasal Cannula 0.5 03/16/16 17:20 50 I&O- Last 24 Hours up to 6 AM 03/22/16 06:00 Intake Total 460 ml Output Total 1550 ml Balance -1090 ml Laboratory Data Labs 24H Laboratory Tests 2 03/21/16 12:13: Bedside Glucose (Misc Panel) 256H 03/21/16 16:49: Bedside Glucose (Misc Panel) 131H 03/21/16 20:14: Bedside Glucose (Misc Panel) 188H 03/22/16 04:50: 03/22/16 04:56: Blood Urea Nitrogen 32H, Creatinine 0.65, Sodium Level 140, Potassium Level 4.5 , Chloride Level 101, Carbon Dioxide Level 31, Calcium Level 8.7L, Phosphorus Level 3.4, Aspartate Amino Transf (AST/SGOT) 68H, Alanine Aminotransferase (ALT/ SGPT) 164H, Lactate Dehydrogenase 244, Total Creatine Kinase 25L, Alkaline Phosphatase 137H, Total Bilirubin 0.4, Triglycerides Level 84, Cholesterol Level 182, Total Protein 5.4L, Albumin 2.8L, Albumin/Globulin Ratio 1.08, Anion Gap 8, White Blood Count 14.4H, Red Blood Count 4.14, Hemoglobin 10.4L, Hematocrit 33.8L, Mean Corpuscular Volume 81.8, Mean Corpuscular Hemoglobin 25.2L, Mean Corpuscular Hemoglobin Concent 30.9L, Red Cell Distribution Width 20.9H, Platelet Count 355, Neutrophils (%) (Auto) 95.0H, Lymphocytes (%) (Auto) 1.8L, Monocytes (%) (Auto) 2.2, Eosinophils (%) (Auto) 0.2, Basophils (%) (Auto ) 0.6, Neutrophils # (Auto) 13.7H, Lymphocytes # (Auto) 0.3L, Monocytes # (Auto ) 0.3, Eosinophils # (Auto) 0.0, Basophils # (Auto) 0.1, C-Reactive Protein, Quantitative < 0.30, Glomerular Filtration Rate > 60.0, Large Unclassified Cells # 0.0, Large Unclassified Cells % 0.3, Prothromb Time International Ratio 1.91, Prothrombin Time 22.0H CBC/BMP Laboratory Tests 03/22/16 04:56 Calcium Level 8.7 L, Phosphorus Level 3.4, Aspartate Amino Transf (AST/SGOT) 68 H, Alanine Aminotransferase (ALT/SGPT) 164 H, Lactate Dehydrogenase 244, Total Creatine Kinase 25 L, Alkaline Phosphatase 137 H, Total Bilirubin 0.4, Triglycerides Level 84, Cholesterol Level 182, Total Protein 5.4 L, Albumin 2.8 L, Red Blood Count 4.14, Mean Corpuscular Volume 81.8, Mean Corpuscular Hemoglobin 25.2 L, Mean Corpuscular Hemoglobin Concent 30.9 L, Red Cell Distribution Width 20.9 H, Neutrophils (%) (Auto) 95.0 H, Lymphocytes (%) (Auto ) 1.8 L, Monocytes (%) (Auto) 2.2, Eosinophils (%) (Auto) 0.2, Basophils (%) ( Auto) 0.6, Neutrophils # (Auto) 13.7 H, Lymphocytes # (Auto) 0.3 L, Monocytes # (Auto) 0.3, Eosinophils # (Auto) 0.0, Basophils # (Auto) 0.1 Microbiology Microbiology 03/15/16 MRSA Screen - Final, Complete RENEE PETERSON DO Mar 22, 2016 09:57
[2016-03-22] MEDS ORDERED: ISOVUE-370 76% 100ML VIAL (Q9967) As Ordered ONE (16:32)
--- NOTE | 2016-03-22 17:05 | REP ---
Clinical: Acute shortness of breath. Technique: Axial contrast enhanced images from the thoracic inlet to the upper abdomen using 100 ml Isovue 370 intravenous contrast material with coronal and sagittal re-formations. Comparison: 03/26/2015. Findings: Guttarwy-sg-fflgm bilateral pleural effusions (right greater than left) are appreciated along with basilar atelectasis and small scattered ill-defined areas of nodular consolidation. Underlying chronic COPD and emphysematous changes are also noted. Mediastinum demonstrates stable cardiomegaly as well as atherosclerotic changes to the thoracic aorta including ectatic descending thoracic aorta with mural thrombus essentially unchanged compared to 2014. No significant adenopathy. Musculoskeletal structures demonstrate age-related changes without focal osseous abnormality. Impression: 1. Ojaxueyl-de-oeqft bilateral pleural effusions (right greater than left) with basilar atelectasis and small scattered ill-defined nodular consolidations. 2. Chronic COPD and emphysematous changes similar to prior examination. 3. Stable atherosclerotic changes to the thoracic aorta with ectatic descending thoracic aorta and mural thrombus unchanged compared to 2014. Signed by Cali Alberto MD 03/22/2016 04:57 P
[2016-03-22] MEDS: FUROSEMIDE 40 MG/4 ML VIAL (J1940) IV SCH (17:27)
[2016-03-22] MEDS: WARFARIN SOD 2.5 MG TAB PO SCH (17:28)
[2016-03-23] VITALS: BP 139/60
[2016-03-23] MEDS: methylPREDNISolone INJ 125 MG/2 ML VIAL (J2930) IV SCH (00:45)
[2016-03-23] MEDS: IPRATROPIUM 0.5MG/ALBUTEROL 2.5MG INH SOL UD 3ML (DUONEB)(J7620) NEB SCH ×6 (03:20→23:13)
[2016-03-23 04:00] VITALS: BP 120/65
[2016-03-23 04:33] LABS: MEAN CORPUSCULAR HEMOGLOBIN 26.4 pg (27.0-33.0); MEAN CORPUSCULAR HGB CONC 31.7 g/dl (32.0-36.5); MEAN CORPUSCULAR VOLUME 83.4 fl (80.0-96.0); RED CELL DISTRIBUTION WIDTH 19.9 % (11.5-14.5); WHITE BLOOD COUNT 14.9 K/mm3 (4.0-10.0)
[2016-03-23 04:45] LABS: INR 1.85
[2016-03-23 04:55] LABS: ALBUMIN 2.9 GM/DL (3.2-5.2); ALKALINE PHOSPHATASE 135 U/L (45-117); ALT/SGPT 173 U/L (12-78); ANION GAP 8 MEQ/L (8-16); AST/SGOT 46 U/L (15-37); BILIRUBIN,DIRECT 0.2 MG/DL (0.0-0.2); BILIRUBIN,TOTAL 0.5 MG/DL (0.2-1.0); BLOOD UREA NITROGEN 37 MG/DL (7-18); CALCIUM LEVEL 8.3 MG/DL (8.8-10.2); CARBON DIOXIDE LEVEL 33 MEQ/L (21-32); CHLORIDE LEVEL 99 MEQ/L (98-107); CREATININE FOR GFR 0.89 MG/DL (0.55-1.02); GLOMERULAR FILTRATION RATE > 60.0 (>32); GLUCOSE, FASTING 138 MG/DL (83-110); POTASSIUM SERUM 4.6 MEQ/L (3.5-5.1); SODIUM LEVEL 140 MEQ/L (136-145); TOTAL PROTEIN 5.8 GM/DL (6.4-8.2)
[2016-03-23] MEDS: SLF 3 ML SYR IV SCH ×3 (06:04→21:00)
[2016-03-23] MEDS: LEVOTHYROXINE 0.025 MG TAB (25 MCG) PO SCH (06:05)
[2016-03-23 08:00] VITALS: BP 99/59
[2016-03-23] MEDS: FUROSEMIDE 40 MG/4 ML VIAL (J1940) IV SCH ×2 (08:55→16:11)
[2016-03-23] MEDS: PANTOPRAZOLE 40MG TAB (PROTONIX) PO SCH (08:56)
[2016-03-23] MEDS: HumaLOG INSULIN (NovoLOG) PER UNIT SC SCH ×4 (08:56→20:37)
[2016-03-23] MEDS: ASPIRIN 81 MG ENTERIC TAB PO SCH (08:56)
[2016-03-23] MEDS: CitaloPRAM (CeleXA) 20 MG TAB PO SCH (08:56)
[2016-03-23] MEDS: TELMISARTAN 20 MG TAB PO SCH (08:56)
[2016-03-23] MEDS ORDERED: predniSONE 20 MG TAB PO SCH (09:00)
[2016-03-23 12:00] VITALS: BP 104/58
--- NOTE | 2016-03-23 12:27 | IPN ---
DATE: 03/23/2016 The patient is seen and examined in the room today. The patient is sitting in the room without oxygen support since this morning. No respiratory distress. The patient stated that she is breathing fine at the moment. Denies any chest pain or palpitations. The patient denies any history of congestive heart failure. On cardiac telemetry, there are still a few episodes throughout the day where the patient has tachycardia with a heart rate greater than 140s and lasting for a short duration. OBJECTIVE: VITAL SIGNS: Temperature is 99, pulse is 93, respirations 32, blood pressure is 120/65, pulse oximetry is 96% with 1 liter nasal cannula around 4:00 a.m. GENERAL: No sign of acute distress. Alert and oriented times three. HEENT: Normocephalic, atraumatic. Extraocular motors are grossly intact. CARDIOVASCULAR: Irregularly irregular with a heart rate approximately 70 to 80s. Positive murmur. RESPIRATORY: Positive crackles bilaterally. More significant in the bilateral basilar areas. ABDOMEN: Soft, nontender, nondistended. Bowel sounds present. EXTREMITIES: No edema. No sign of cyanosis. LABORATORY DATA: WBC is 14.9, hemoglobin 11.3, hematocrit 35.6, platelet count is 379. Sodium is 140, potassium 4.6, chloride is 99, carbon dioxide 33, BUN 37, creatinine 0.89, GFR greater than 60, fasting glucose is 138, calcium is 8.3. Total bilirubin is 0.5, direct bilirubin is 0.2, AST is 46, ALT is 173, alkaline phosphatase is 135, total protein 5.8, albumin is 2.9. IMAGING STUDIES: CT of the chest with contrast showed moderate to large bilateral pleural effusion, right greater than left with bibasilar atelectasis and a small scattered, ill-defined nodular consolidations. Chronic obstructive pulmonary disease (COPD) and emphysematous changes. ASSESSMENT AND PLAN: 1. Acute respiratory distress. Previously, the patient was in the intensive care unit (ICU) and required mechanical ventilation. The patient was weaned off the mechanical ventilator a few days prior. Initially, the patient has been on treatment for chronic obstructive pulmonary disease (COPD) and intermittently the patient is receiving Lasix due to fluid overload. CT of the chest with contrast was done yesterday and showed the patient has moderate to severe bilateral pleural effusion, right side greater than the left. The patient will continue with Lasix diuresis. We will try to start to taper the patient's steroids, since the patient does not have any wheezes during physical examination and her breathing status is improving. 2. Bilateral pleural effusions. This is a new finding. The patient does not have pleural effusion prior to this hospitalization. Most recent cardiac echocardiogram was performed in February 2015, which does not suggest any significant findings. No congestive heart failure. Due to change in her breathing status and new symptoms, we will follow with a cardiac echocardiogram. 3. Tachybrady syndrome. Rate control medication has been adjusted by the drink mixer. The patient does not have any greater than 3 second asystole noted on cardiac telemetry. Initially, 3 second pause was observed on 03/19/2016 and cardiology was consulted. We appreciate cardiology's input. 4. Atrial fibrillation. Currently, medication is being adjusted by cardiology. The patient is on diltiazem 90 mg by mouth every 6 hours. The patient is also on warfarin. The patient had a therapeutic INR previously today. The INR dropped below 2. The patient will have an increased dose of warfarin today. We will continue to monitor INR. 5. COPD. The patient does not have any wheezes anymore. We will start to taper the steroids to see if the patient can tolerate it. The patient will continue to have nebulizer treatments. 6. History of ischemic brain injury. On aspirin and warfarin. Neurology has been consulted. 7. History of focal seizures. We appreciate neurology recommendations. Keppra was suggested as a contingency plan; however, the patient has not had the need to use it. Contingency plan is per neurology recommendations. The patient also has not needed the Keppra. 8. History of gastroesophageal reflux disease (GERD). 9. History of macular degeneration. 10. Hypertension. Currently, the patient's blood pressure medication includes Lasix, Micardis, and Cardizem. 11. Hypothyroidism. On Synthroid. 12. Deep vein thrombosis (DVT) prophylaxis. The patient is on warfarin. MTDD
[2016-03-23 16:00] VITALS: BP 93/62
[2016-03-23] MEDS: WARFARIN SOD 2.5 MG TAB PO SCH (16:14)
[2016-03-23] MEDS ORDERED: WARFARIN SOD 2.5 MG TAB PO ONE (17:00)
[2016-03-23 20:00] VITALS: BP 120/94
[2016-03-24] VITALS (8 sets, daily range): BP systolic 106–139; BP diastolic 55–74
[2016-03-24] MEDS: LEVOTHYROXINE 0.025 MG TAB (25 MCG) PO SCH (05:03)
[2016-03-24] MEDS: SLF 3 ML SYR IV SCH ×3 (05:03→20:56)
[2016-03-24 05:05] LABS: MEAN CORPUSCULAR HEMOGLOBIN 25.3 pg (27.0-33.0); MEAN CORPUSCULAR HGB CONC 31.6 g/dl (32.0-36.5); MEAN CORPUSCULAR VOLUME 80.1 fl (80.0-96.0); RED CELL DISTRIBUTION WIDTH 21.1 % (11.5-14.5); WHITE BLOOD COUNT 17.4 K/mm3 (4.0-10.0)
[2016-03-24 05:18] LABS: ANION GAP 8 MEQ/L (8-16); BLOOD UREA NITROGEN 43 MG/DL (7-18); CALCIUM LEVEL 8.5 MG/DL (8.8-10.2); CARBON DIOXIDE LEVEL 32 MEQ/L (21-32); CHLORIDE LEVEL 101 MEQ/L (98-107); CREATININE FOR GFR 0.91 MG/DL (0.55-1.02); GLOMERULAR FILTRATION RATE > 60.0 (>32); GLUCOSE, FASTING 146 MG/DL (83-110); POTASSIUM SERUM 4.6 MEQ/L (3.5-5.1); SODIUM LEVEL 141 MEQ/L (136-145)
[2016-03-24 05:21] LABS: INR 2.21
[2016-03-24] MEDS: IPRATROPIUM 0.5MG/ALBUTEROL 2.5MG INH SOL UD 3ML (DUONEB)(J7620) NEB SCH ×5 (07:40→23:14)
[2016-03-24] MEDS: HumaLOG INSULIN (NovoLOG) PER UNIT SC SCH ×4 (08:38→20:55)
[2016-03-24] MEDS: ASPIRIN 81 MG ENTERIC TAB PO SCH (08:39)
[2016-03-24] MEDS: CitaloPRAM (CeleXA) 20 MG TAB PO SCH (08:39)
[2016-03-24] MEDS: FUROSEMIDE 20 MG TAB PO SCH ×2 (08:39→17:31)
[2016-03-24] MEDS: PANTOPRAZOLE 40MG TAB (PROTONIX) PO SCH (08:39)
--- NOTE | 2016-03-24 16:16 | REP ---
RIGHT UPPER QUADRANT ULTRASOUND: Real-time sonographic evaluation of the right upper quadrant performed. No gallstones are seen. The gallbladder appears somewhat contracted. There is diffuse apparent thickening of the gallbladder wall, but this could be at least in part due to its contracted state. There is no intrahepatic or extrahepatic biliary dilatation, the common bile duct measuring 6 mm in diameter. Liver and pancreas demonstrate homogeneous echotexture with no gross mass. The right kidney demonstrates no hydronephrosis or nephrolithiasis with normal size at 8.6 cm in length. A right pleural effusion is noted. IMPRESSION: Gallbladder appears somewhat contracted. Possible diffuse gallbladder wall thickening, but this could be due to its contracted state. No gallstones or biliary dilatation. Right pleural effusion. No free fluid in the right upper quadrant. Signed by Edmundo Boyd MD 03/25/2016 12:58 P
--- NOTE | 2016-03-24 16:37 | IPN ---
DATE: 03/24/2016 Patient seen and examined. No acute events overnight. Patient comfortable. Denies any significant dyspnea. Denies any chest pain, pressure, or discomfort. Tolerating oral. Participating with physical therapy. VITAL SIGNS: Temperature 97.3, pulse 96, respirations 24, blood pressure 110/60, pulse ix 92% on room air. LABORATORY DATA: WBC 17.4, hemoglobin and hematocrit 10.4/32.8, platelets 390. Chemistry: Sodium 141, potassium 4.6, chloride 101, bicarbonate 32, BUN 43, creatinine 0.9. PHYSICAL EXAMINATION: GENERAL: Patient in no acute distress, alert and oriented times three. HEENT: Normocephalic, atraumatic. Very frail. CARDIAC: Irregularly irregular. Nontachycardia. Positive systolic murmurs. RESPIRATORY: Mild bibasilar crackles. No significant wheeze. Diminished breath sounds, bilateral base. ABDOMEN: Soft and nontender. Positive bowel sounds. EXTREMITIES: No edema, bilateral lower extremities. ASSESSMENT AND PLAN: This is an 80-year-old female patient with underlying medical history of coronary artery disease, paroxysmal atrial fibrillation with rapid ventricular response, hypertension, chronic obstructive pulmonary disease (COPD), history of smoking, history of cerebrovascular accident (CVA), right meningeal cerebral artery aneurysm, osteoarthritis, cataract, dyslipidemia, depression, peripheral arterial disease, gastroesophageal reflux disease (GERD), macular degeneration, hypothyroidism, thoracic aortic aneurysm, anemia. Patient was initially admitted for acute respiratory failure requiring mechanical ventilation, likely secondary to acute COPD exacerbation. 1. Acute respiratory failure requiring mechanical ventilation. Patient status post extubation. Currently being treated for COPD with Decadron, nebulizer treatment. Taper steroid as tolerated. CT scan appreciated. 2. Bilateral pleural effusion, possibly secondary to pulmonary hypertension and diastolic heart failure. Echo appreciated. Case discussed with Dr. Lua. Will continue diuresis. Hold off invasive procedure at this time given patient in no significant distress. Continue to follow. CT scan appreciated. Followup BUN and creatinine. 3. Tachycardia-bradycardia syndrome. Cardiology consulted. Medication has been adjusted. Patient on Cardizem. Anticoagulation with Coumadin. 4. Atrial fibrillation. Patient on Coumadin, Cardizem. Cardiology consulted. Followup cardiology recommendations. Followup INR. 5. COPD. Continue nebulizer treatment as needed. Taper steroids. 6. History of ischemic brain injury. Aspirin and Coumadin. Neurology has been consulted. 7. History of focal seizures. Recommendation as per neurology. Hold off Keppra for now. Will add Keppra if patient has another episode of seizure. 8. History of GERD. Continue medication as ordered. 9. History of macular degeneration. Outpatient followup. 10. Hypertension. Continue medication as ordered. 11. Hypothyroidism. Continue Synthroid. 12. Deep vein thrombosis (DVT) prophylaxis. Patient on Coumadin. Followup INR. DISPOSITION PLANNING: Pending clinical improvement and physical therapy.
[2016-03-24] MEDS: WARFARIN SOD 2.5 MG TAB PO SCH (17:31)
[2016-03-25] VITALS (7 sets, daily range): BP systolic 101–141; BP diastolic 51–66
[2016-03-25] MEDS: IPRATROPIUM 0.5MG/ALBUTEROL 2.5MG INH SOL UD 3ML (DUONEB)(J7620) NEB SCH ×6 (03:33→23:29)
[2016-03-25 05:17] LABS: MEAN CORPUSCULAR HGB CONC 32.6 g/dl (32.0-36.5); MEAN CORPUSCULAR VOLUME 79.5 fl (80.0-96.0); RED CELL DISTRIBUTION WIDTH 21.3 % (11.5-14.5); WHITE BLOOD COUNT 20.4 K/mm3 (4.0-10.0)
[2016-03-25 05:36] LABS: ALBUMIN 2.7 GM/DL (3.2-5.2); ALBUMIN/GLOBULIN RATIO 1.04 (1.00-1.93); ALKALINE PHOSPHATASE 106 U/L (45-117); ALT/SGPT 159 U/L (12-78); ANION GAP 10 MEQ/L (8-16); AST/SGOT 43 U/L (15-37); BILIRUBIN,DIRECT 0.2 MG/DL (0.0-0.2); BILIRUBIN,TOTAL 0.5 MG/DL (0.2-1.0); BLOOD UREA NITROGEN 47 MG/DL (7-18); CALCIUM LEVEL 8.4 MG/DL (8.8-10.2); CARBON DIOXIDE LEVEL 31 MEQ/L (21-32); CHLORIDE LEVEL 99 MEQ/L (98-107); GLOMERULAR FILTRATION RATE > 60.0 (>32); GLUCOSE, FASTING 125 MG/DL (83-110); POTASSIUM SERUM 4.7 MEQ/L (3.5-5.1); SODIUM LEVEL 140 MEQ/L (136-145); TOTAL PROTEIN 5.3 GM/DL (6.4-8.2)
[2016-03-25] MEDS: SLF 3 ML SYR IV SCH ×3 (05:56→21:02)
[2016-03-25] MEDS: LEVOTHYROXINE 0.025 MG TAB (25 MCG) PO SCH (05:56)
[2016-03-25] MEDS: CitaloPRAM (CeleXA) 20 MG TAB PO SCH (08:06)
[2016-03-25] MEDS: PANTOPRAZOLE 40MG TAB (PROTONIX) PO SCH (08:06)
[2016-03-25] MEDS: ASPIRIN 81 MG ENTERIC TAB PO SCH (08:06)
[2016-03-25] MEDS: FUROSEMIDE 20 MG TAB PO SCH ×2 (08:06→17:16)
[2016-03-25] MEDS: HumaLOG INSULIN (NovoLOG) PER UNIT SC SCH ×4 (08:07→21:00)
--- NOTE | 2016-03-25 11:38 | IPNPDOC ---
Assessment/Plan Date Seen The patient was seen on 03/25/16. Plan / VTE VTE Prophylaxis Ordered?: Yes (warfarin) Plan Plan Text 80 year old female patient with PMH of CAD, Afib on Coumadin, HTN, PAD, COPD, history of CVA, right cerebral meningeal artery aneurysm, OA, cataract, HLD, depression, GERD, macular degeneration, hypothyroidism, thoracic aortic aneurysm , and anemia admitted for acute respiratory failure. 1. Acute respiratory failure s/p extubation likely from COPD exacerbation Resolved. Oral Dexamethasone was tapered from 6mg bid to daily. 2. Leukocytosis No fever, no complaints. Likely from steroid. Will monitor for now without antibiotics and send urinalysis. 3. CAD / Afib / Tachycardia-bradycardia syndrome / HTN Cardiology on case. On ASA. On Lasix 20mg po bid. On Cardizem 90mg po q6h with controlled heart rate. On Coumadin 2.5mg po daily with INR of 2.2. Digoxin was discontinued. Beta gabe was discontinued because of COPD and tachy-haylie syndrome. Would consider to add ACEI or ARB later. Would consider TTE but can be done as an outpatient. 4. Bilateral pleural effusion s/p CT of chest. No active complaints. Defer thoracentesis later since no indication for now. On Lasix as above. 5. History of CVA / History of seizure Holding Keppra. Recommendations per neurology. 6. Hypothyroidism Om levothyroxine. 7. Cataract / Macular degeneration Follow up as an outpatient. 8. DVT prophylaxis On Coumadin with therapeutic INR. 9. Disposition On PT and TBD. Subjective Review of Systems CC/HPI Patient was seen and examined at bedside. No acute events overnight and no current acute distress. No chest pain or shortness of breath. She is tolerating oral feeding and participating physical therapy. General: Denies: Chills, Fatigue, Malaise, Night Sweats, Normal Appetite, Other Symptoms, ROS Unobtainable Constitutional: Denies: Chills, Fatigue, Fever, Lethargy, Malaise, Night Sweats , Other, Weakness, Weight Loss Pulmonary: Denies: Cough, Dyspnea, Other Symptoms, Pleuritic Chest Pain Cardiovascular: Denies: Chest Pain, Edema, Lt Headedness, Orthopnea, Other Symptoms, Palpitations, Paroxysmal Noc. Dyspnea Gastrointestinal: Denies: Abdominal Pain, Constipation, Diarrhea, Hematochezia , Melena, Nausea, Other Symptoms, Vomiting Genitourinary: Denies: Dysuria, Frequency, Hematuria, Incontinence, Other Symptoms, Retention Objective Physical Examination General Exam: Positive: Alert, Cooperative, No Acute Distress, Negative: Mild Distress, Moderate Distress, Other, Severe Distress Neck Exam: Negative: +2 carotid pulse wo bruit, JVD, Lymphadenopathy, Other, Supple, thyromegaly Chest Exam: Positive: Diminished, Rhonchi, Wheezing, Negative: Clear to auscultation, Normal air movement, Other, Rales Heart Exam: Positive: Irregular Rhythm, Other (Heart rate is switching between A fib and sinus. there are episodes of bradycardia), Negative: Bradycardic, Gallops, Murmurs, Normal S1, Normal S2, Rate Normal, Regular Rhythm, Rubs, Tachycardic Telemetry: Positive: Atrial fibrillation Abdomen Exam: Positive: Normal bowel sounds, Soft, Negative: BS Hyperactive, BS Hypoactive, Hepatospenomegaly, Hernia, Mass, Other, Tenderness Extremity Exam: Negative: Cyanosis, Edema Vital Signs/I&O Vital Signs Date Time Temp Pulse Resp B/P Pulse Ox O2 Delivery O2 Flow Rate FiO2 03/25/16 08:00 98.0 81 20 101/51 98 Room Air 03/23/16 04:00 1.0 I&O- Last 24 Hours up to 6 AM 03/25/16 06:00 Intake Total 1090 ml Output Total 2100 ml Balance -1010 ml Laboratory Data Labs 24H Laboratory Tests 2 03/24/16 12:09: Bedside Glucose (Misc Panel) 178H 03/24/16 16:42: Bedside Glucose (Misc Panel) 167H 03/24/16 20:54: Bedside Glucose (Misc Panel) 180H 03/25/16 05:02: Aspartate Amino Transf (AST/SGOT) 43H, Alanine Aminotransferase (ALT/SGPT) 159H , Alkaline Phosphatase 106, Total Bilirubin 0.5, Direct Bilirubin 0.2, Albumin 2.7L, Albumin/Globulin Ratio 1.04, Anion Gap 10, C-Reactive Protein, Quantitative < 0.30, Calcium Level 8.4L, Glomerular Filtration Rate > 60.0, Hepatitis A IgM Antibody NEGATIVE, Hepatitis B Core IgM Antibody NEGATIVE, Hepatitis B Surface Antigen NEGATIVE, Hepatitis C Antibody Index 0.0, Total Protein 5.3L CBC/BMP Laboratory Tests 03/25/16 05:02 Red Blood Count 3.88 L, Mean Corpuscular Volume 79.5 L, Mean Corpuscular Hemoglobin 26.0 L, Mean Corpuscular Hemoglobin Concent 32.6, Red Cell Distribution Width 21.3 H FSBS Laboratory Tests Test 03/24/16 12:09 03/24/16 16:42 03/24/16 20:54 Range/Units Bedside Glucose (Misc Panel) 178 167 180 83-110 MG/DL Microbiology Microbiology 03/15/16 MRSA Screen - Final, Complete GIL WATTS MD Mar 25, 2016 11:36
--- NOTE | 2016-03-25 15:32 | ECHO ---
DATE OF PROCEDURE: 03/23/2016 REFERRING PHYSICIAN: Dr. Willa Mukherjee INDICATION: Dyspnea. HEIGHT: 158 cm. WEIGHT: 41 kg. MEASUREMENTS: Left atrium - 3.8 cm Ventricular septum - 1.01 cm Posterior wall - 1.02 cm Left ventricle diastole - 4.1 cm Aortic root - 2.6 cm LVOT - 1.5 cm Inferior vena cava - 1.3 cm DOPPLER MEASUREMENTS: Aortic valve velocity - 219 cm/s LVOT velocity - 222 cm/s LVOT VTI - 31.9 cm Mild mitral regurgitation. Mild tricuspid regurgitation. Estimated right ventricle systolic pressure 51 mmHg Estimated right atrial pressure of 5 mmHg Very mild to moderate regurgitation. Pulmonary artery systolic pressure 48 mmHg by pulmonary acceleration time method. DESCRIPTION: Rhythm was atrial fibrillation with mildly rapid ventricular response. This was a moderately technical difficult echocardiogram. No pericardial effusion. CONCLUSIONS: 1. Normal left ventricle internal dimensions and wall thickness. Normal LV wall motion and wall thickening. Normal LV systolic function. LVEF of 70% to 75% by visual estimate. 2. Suggestive of moderate elevation of pulmonary artery systolic pressure and estimated right ventricle systolic pressure. 3. Mild left atrial dilatation. 4. Moderate mitral annular calcification. No mitral stenosis. Mild mitral regurgitation. 5. Moderate aortic valve sclerosis of a three-cuspid aortic valve. No aortic stenosis or aortic regurgitation.
[2016-03-25] MEDS: WARFARIN SOD 2.5 MG TAB PO SCH (17:14)
[2016-03-26] VITALS: BP 133/74
[2016-03-26 04:00] VITALS: BP 111/63
[2016-03-26] MEDS: IPRATROPIUM 0.5MG/ALBUTEROL 2.5MG INH SOL UD 3ML (DUONEB)(J7620) NEB SCH ×6 (04:04→23:27)
[2016-03-26 05:13] LABS: MEAN CORPUSCULAR HEMOGLOBIN 25.5 pg (27.0-33.0); MEAN CORPUSCULAR HGB CONC 31.3 g/dl (32.0-36.5); MEAN CORPUSCULAR VOLUME 81.5 fl (80.0-96.0); WHITE BLOOD COUNT 23.6 K/mm3 (4.0-10.0)
[2016-03-26 05:26] LABS: ANION GAP 7 MEQ/L (8-16); BLOOD UREA NITROGEN 47 MG/DL (7-18); CALCIUM LEVEL 8.3 MG/DL (8.8-10.2); CARBON DIOXIDE LEVEL 31 MEQ/L (21-32); CHLORIDE LEVEL 98 MEQ/L (98-107); CREATININE FOR GFR 0.78 MG/DL (0.55-1.02); GLOMERULAR FILTRATION RATE > 60.0 (>32); GLUCOSE, FASTING 121 MG/DL (83-110); POTASSIUM SERUM 4.9 MEQ/L (3.5-5.1); SODIUM LEVEL 136 MEQ/L (136-145)
[2016-03-26] MEDS: SLF 3 ML SYR IV SCH ×3 (05:48→21:59)
[2016-03-26] MEDS: LEVOTHYROXINE 0.025 MG TAB (25 MCG) PO SCH (05:48)
[2016-03-26] MEDS ORDERED: cefTRIAXone SOD 1 GM in D5W MINI-BAG PLUS 50 ML IV SCH (07:00)
[2016-03-26] MEDS: HumaLOG INSULIN (NovoLOG) PER UNIT SC SCH ×4 (07:30→21:00)
[2016-03-26 07:40] VITALS: BP 112/65
[2016-03-26] MEDS: FUROSEMIDE 20 MG TAB PO SCH ×2 (08:13→17:19)
[2016-03-26] MEDS: ASPIRIN 81 MG ENTERIC TAB PO SCH (08:14)
[2016-03-26] MEDS: CitaloPRAM (CeleXA) 20 MG TAB PO SCH (08:14)
[2016-03-26] MEDS: PANTOPRAZOLE 40MG TAB (PROTONIX) PO SCH (08:14)
--- NOTE | 2016-03-26 11:19 | REP ---
CHEST X-RAY: Two views. HISTORY: Leukocytosis. Chronic pleural effusion. Comparison chest CT study is from March 22, 2016. Comparison portable chest x-ray is from the same date. FINDINGS: There is slight blunting of the left lateral pleural angle. This appears improved. The right pleural angle is improved as well and is no longer blunted on the frontal radiograph. Lateral view shows slight blunting of both posterior pleural angles. Overall hyperinflation again seen. The aorta is calcific and tortuous. Heart is not enlarged. No acute infiltrate is seen. IMPRESSION: Improved pleural effusions. Hyperinflation. No acute infiltrate. Signed by Houston Ortiz MD 03/26/2016 12:07 P
[2016-03-26 12:11] VITALS: BP 148/106
--- NOTE | 2016-03-26 13:07 | IPNPDOC ---
Assessment/Plan Date Seen The patient was seen on 03/26/16. Plan / VTE VTE Prophylaxis Ordered?: Yes (warfarin) Plan Plan Text 80 year old female patient with PMH of CAD, Afib on Coumadin, HTN, PAD, COPD, history of CVA, right cerebral meningeal artery aneurysm, OA, cataract, HLD, depression, GERD, macular degeneration, hypothyroidism, thoracic aortic aneurysm , and anemia admitted for acute respiratory failure. 1. Acute respiratory failure s/p extubation likely from COPD exacerbation Resolved. Oral Dexamethasone was tapered from 6mg bid to daily. 2. Leukocytosis / UTI No fever, no complaints. Still elevating. Urinalysis was positive and got one dose of ceftriaxone on 03/26/16. Repeat CXR showed decreased bilateral pleural effusion and no signs of infiltrate. Will get blood culture and C.diff assay, and will give one dose of vancomycin after the culture. Will also switch ceftriaxone to levofloxacin. 3. CAD / Afib / Tachycardia-bradycardia syndrome / HTN Cardiology on case. On ASA. On Lasix 20mg po bid. On Cardizem 90mg po q6h with controlled heart rate. On Coumadin 2.5mg po daily with INR of 2.2. Digoxin was discontinued. Beta gabe was discontinued because of COPD and tachy-haylie syndrome. Would consider to add ACEI or ARB later. Would consider TTE to evaluate LVSF and valves but can be done as an outpatient. 4. Bilateral pleural effusion s/p CT of chest. No active complaints. Repeat CXR showed decrease of pleural effusion. Deferred thoracentesis since no indication. On Lasix as above. 5. History of CVA / History of seizure Holding Keppra. Recommendations per neurology. 6. Hypothyroidism On levothyroxine. 7. Cataract / Macular degeneration Follow up as an outpatient. 8. DVT prophylaxis On Coumadin with therapeutic INR. 9. Disposition On PT and TBD. Subjective Review of Systems CC/HPI Patient was seen and examined at bedside. She is in no acute distress and resting comfortably in chair. No chest pain or shortness of breath at rest. Objective Physical Examination General Exam: Positive: Alert, Cooperative, No Acute Distress, Negative: Mild Distress, Moderate Distress, Other, Severe Distress Neck Exam: Negative: +2 carotid pulse wo bruit, JVD, Lymphadenopathy, Other, Supple, thyromegaly Chest Exam: Positive: Diminished, Rhonchi, Wheezing, Negative: Clear to auscultation, Normal air movement, Other, Rales Heart Exam: Positive: Irregular Rhythm, Other (Heart rate is switching between A fib and sinus. there are episodes of bradycardia), Negative: Bradycardic, Gallops, Murmurs, Normal S1, Normal S2, Rate Normal, Regular Rhythm, Rubs, Tachycardic Telemetry: Positive: Atrial fibrillation Abdomen Exam: Positive: Normal bowel sounds, Soft, Negative: BS Hyperactive, BS Hypoactive, Hepatospenomegaly, Hernia, Mass, Other, Tenderness Extremity Exam: Negative: Cyanosis, Edema Vital Signs/I&O Vital Signs Date Time Temp Pulse Resp B/P Pulse Ox O2 Delivery O2 Flow Rate FiO2 03/26/16 08:00 Room Air 03/26/16 05:47 95 126/59 03/26/16 04:00 99.0 20 96 03/23/16 04:00 1.0 I&O- Last 24 Hours up to 6 AM 03/26/16 06:00 Intake Total 1490 ml Output Total 1950 ml Balance -460 ml Laboratory Data Labs 24H Laboratory Tests 2 03/25/16 15:22: Urine Amorphous Sediment , Urine Appearance HAZY, Urine Color YELLOW, Urine pH 7.0, Urine Specific Morrison 1.012, Urine Protein NEGATIVE, Urine Glucose (UA) NEGATIVE, Urine Ketones NEGATIVE, Urine Urobilinogen 0.2, Urine Bilirubin NEGATIVE, Urine Leukocyte Esterase 3+H, Urine Bacteria (Auto) 2+H, Urine Blood NEGATIVE, Urine Calcium Carbonate Cryst(Auto) , Urine Calcium Oxalate Cryst ( Auto) , Urine Calcium Phosphate Naida (Auto) , Urine Cellular Casts , Urine Cystine Crystals , Urine Granular Casts (Auto) , Urine Hyaline Casts (Auto) 0, Urine Leucine Crystals , Urine Mucus (Auto) , Urine Nitrite NEGATIVE, Urine Oval Fat Bodies (Auto) , Urine RBC (Auto) 2, Urine Renal Epithelial Cells , Urine Sperm (Auto) , Urine Squamous Epithelial Cells 0, Urine Transitional Epithelial Cells , Urine Trichomonas (Auto) , Urine Triple Phosphate Cryst (Auto ) , Urine Tyrosine Crystals , Urine Uric Acid Crystals (Auto) , Urine WBC (Auto ) 56H, Urine Waxy Casts (Auto) , Urine Yeast-Like Cells (Auto) 03/25/16 16:39: Bedside Glucose (Misc Panel) 122H 03/25/16 21:00: Bedside Glucose (Misc Panel) 144H 03/26/16 04:49: Anion Gap 7L, Blood Urea Nitrogen 47H, Creatinine 0.78, Sodium Level 136, Potassium Level 4.9, Chloride Level 98, Carbon Dioxide Level 31, Calcium Level 8.3L, Glomerular Filtration Rate > 60.0 03/26/16 08:12: Bedside Glucose (Misc Panel) 126H 03/26/16 11:38: Bedside Glucose (Misc Panel) 171H CBC/BMP Laboratory Tests 03/26/16 04:49 Calcium Level 8.3 L, Red Blood Count 3.94 L, Mean Corpuscular Volume 81.5, Mean Corpuscular Hemoglobin 25.5 L, Mean Corpuscular Hemoglobin Concent 31.3 L, Red Cell Distribution Width 21.0 H FSBS Laboratory Tests Test 03/25/16 16:39 03/25/16 21:00 03/26/16 08:12 03/26/16 11:38 Range/Units Bedside Glucose (Misc Panel) 122 144 126 171 83-110 MG/DL Microbiology Microbiology 03/25/16 Urine Culture, Received Pending GIL WATTS MD Mar 26, 2016 13:06
[2016-03-26 14:17] LABS: BASO # 0.1 K/mm3 (0.0-0.2); BASO % 0.2 % (0.0-1.0); EOS # 0.1 K/mm3 (0.0-0.50); EOS % 0.3 % (0.0-3.0); LARGE UNSTAINED CELL # 0.1 K/mm3 (0.0-0.4); LARGE UNSTAINED CELL % 0.4 % (0.0-4.0); LYMPH # 0.4 K/mm3 (1.5-4.5); LYMPH % 1.2 % (24.0-44.0); MEAN CORPUSCULAR HEMOGLOBIN 25.2 pg (27.0-33.0); MEAN CORPUSCULAR HGB CONC 30.7 g/dl (32.0-36.5); MEAN CORPUSCULAR VOLUME 82.2 fl (80.0-96.0); MONO # 0.6 K/mm3 (0.0-0.8); MONO % 1.8 % (0.0-5.0); NEUTROPHILS # 31.2 K/mm3 (1.8-7.7); NEUTROPHILS % 96.1 % (36.0-66.0); PLATELET COUNT, AUTOMATED 400 k/mm3 (150-450); RED CELL DISTRIBUTION WIDTH 19.8 % (11.5-14.5)
[2016-03-26 14:18] LABS: WHITE BLOOD COUNT 32.4 K/mm3 (4.0-10.0)
[2016-03-26] MEDS ORDERED: VANCOMYCIN HCL 1,000 MG, VIAL MATE ADAPTER 1 EACH in D5W 250 ML IV ONE (16:00)
[2016-03-26 16:25] LABS: ERYTHROCYTE SEDIMENTATION RATE 2 mm/hr (0-30)
[2016-03-26 16:50] VITALS: BP 126/62
[2016-03-26] MEDS ORDERED: LevoFLOXacin 500 MG in APPROPRIATE DILUENT 1 EA IV SCH (17:00)
[2016-03-26] MEDS ORDERED: SODIUM CHLORIDE 0.9% 1000 ML IV ONE (17:00)
[2016-03-26] MEDS: WARFARIN SOD 2.5 MG TAB PO SCH (17:19)
[2016-03-26 20:00] VITALS: BP 101/55
[2016-03-27] VITALS (8 sets, daily range): BP systolic 100–120; BP diastolic 56–59
[2016-03-27] MEDS: IPRATROPIUM 0.5MG/ALBUTEROL 2.5MG INH SOL UD 3ML (DUONEB)(J7620) NEB SCH ×5 (03:55→19:43)
[2016-03-27 04:38] LABS: MEAN CORPUSCULAR HEMOGLOBIN 26.4 pg (27.0-33.0); MEAN CORPUSCULAR VOLUME 82.5 fl (80.0-96.0); RED CELL DISTRIBUTION WIDTH 19.9 % (11.5-14.5); WHITE BLOOD COUNT 20.2 K/mm3 (4.0-10.0)
[2016-03-27 04:50] LABS: INR 1.94
[2016-03-27 04:52] LABS: ANION GAP 12 MEQ/L (8-16); BLOOD UREA NITROGEN 45 MG/DL (7-18); CALCIUM LEVEL 8.1 MG/DL (8.8-10.2); CARBON DIOXIDE LEVEL 27 MEQ/L (21-32); CHLORIDE LEVEL 100 MEQ/L (98-107); CREATININE FOR GFR 0.95 MG/DL (0.55-1.02); GLOMERULAR FILTRATION RATE > 60.0 (>32); GLUCOSE, FASTING 133 MG/DL (83-110); POTASSIUM SERUM 4.3 MEQ/L (3.5-5.1); SODIUM LEVEL 139 MEQ/L (136-145)
[2016-03-27] MEDS: LEVOTHYROXINE 0.025 MG TAB (25 MCG) PO SCH (05:36)
[2016-03-27] MEDS: SLF 3 ML SYR IV SCH ×3 (05:36→22:00)
[2016-03-27] MEDS: HumaLOG INSULIN (NovoLOG) PER UNIT SC SCH ×4 (08:04→20:27)
[2016-03-27] MEDS: ASPIRIN 81 MG ENTERIC TAB PO SCH (08:04)
[2016-03-27] MEDS: PANTOPRAZOLE 40MG TAB (PROTONIX) PO SCH (08:05)
[2016-03-27] MEDS: FUROSEMIDE 20 MG TAB PO SCH ×2 (08:05→17:27)
[2016-03-27] MEDS: CitaloPRAM (CeleXA) 20 MG TAB PO SCH (08:05)
[2016-03-27 12:22] LABS: BASO % 0.1 % (0.0-1.0); EOS % 0.2 % (0.0-3.0); LARGE UNSTAINED CELL # 0.1 K/mm3 (0.0-0.4); LARGE UNSTAINED CELL % 0.5 % (0.0-4.0); LYMPH # 0.4 K/mm3 (1.5-4.5); LYMPH % 1.8 % (24.0-44.0); MEAN CORPUSCULAR HEMOGLOBIN 25.9 pg (27.0-33.0); MEAN CORPUSCULAR HGB CONC 31.5 g/dl (32.0-36.5); MEAN CORPUSCULAR VOLUME 82.2 fl (80.0-96.0); MONO # 0.5 K/mm3 (0.0-0.8); MONO % 2.3 % (0.0-5.0); NEUTROPHILS % 95.1 % (36.0-66.0); PLATELET COUNT, AUTOMATED 334 k/mm3 (150-450); RED CELL DISTRIBUTION WIDTH 19.9 % (11.5-14.5)
--- NOTE | 2016-03-27 12:33 | IPNPDOC ---
Assessment/Plan Date Seen The patient was seen on 03/27/16. Plan / VTE VTE Prophylaxis Ordered?: Yes (warfarin) Plan Plan Text 80 year old female patient with PMH of CAD, Afib on Coumadin, HTN, PAD, COPD, history of CVA, right cerebral meningeal artery aneurysm, OA, cataract, HLD, depression, GERD, macular degeneration, hypothyroidism, thoracic aortic aneurysm , and anemia admitted for acute respiratory failure. 1. Acute respiratory failure s/p extubation likely from COPD exacerbation Resolved. Oral Dexamethasone was tapered from 6mg bid to daily. 2. Leukocytosis / UTI No fever, no complaints. Improving with vancomycin and levofloxacin since 03/16/16. She got one dose of ceftriaxone on 03/26/16 morning. Urinalysis was positive and urine culture grew E. Faecalis. Repeat CXR showed decreased bilateral pleural effusion and no signs of infiltrate. Will follow blood culture, sputum culture, and C.diff assay. Would consider to get a consult from ID if no response. 3. CAD / Afib / Tachycardia-bradycardia syndrome / HTN Cardiology on case. On ASA. On Lasix 20mg po bid. On Cardizem 90mg po q6h with controlled heart rate. On Coumadin 2.5mg po daily with INR of 1.9-2.2, and will continue current dose. Digoxin was discontinued. Beta gabe was discontinued because of COPD and tachy-haylie syndrome. Would consider to add ACEI or ARB later. Would consider TTE to evaluate LVSF and valves but can be done as an outpatient. 4. Bilateral pleural effusion s/p CT of chest. No active complaints. Repeat CXR showed decrease of pleural effusion. Deferred thoracentesis since no indication. On Lasix as above. 5. History of CVA / History of seizure Holding Keppra. Recommendations per neurology. 6. Hypothyroidism On levothyroxine. 7. Cataract / Macular degeneration Follow up as an outpatient. 8. DVT prophylaxis On Coumadin. 9. Disposition On PT and TBD. Subjective Review of Systems CC/HPI Patient was seen and examined at bedside. She is in no acute distress and is resting and eating comfortably in chair. No chest pain or shortness of breath at rest. Objective Physical Examination General Exam: Positive: Alert, Cooperative, No Acute Distress, Negative: Mild Distress, Moderate Distress, Other, Severe Distress Neck Exam: Negative: +2 carotid pulse wo bruit, JVD, Lymphadenopathy, Other, Supple, thyromegaly Chest Exam: Positive: Diminished, Rhonchi, Wheezing, Negative: Clear to auscultation, Normal air movement, Other, Rales Heart Exam: Positive: Irregular Rhythm, Other (Heart rate is switching between A fib and sinus. there are episodes of bradycardia), Negative: Bradycardic, Gallops, Murmurs, Normal S1, Normal S2, Rate Normal, Regular Rhythm, Rubs, Tachycardic Telemetry: Positive: Atrial fibrillation Abdomen Exam: Positive: Normal bowel sounds, Soft, Negative: BS Hyperactive, BS Hypoactive, Hepatospenomegaly, Hernia, Mass, Other, Tenderness Extremity Exam: Negative: Cyanosis, Edema Vital Signs/I&O Vital Signs Date Time Temp Pulse Resp B/P Pulse Ox O2 Delivery O2 Flow Rate FiO2 03/27/16 11:47 99 120/58 03/27/16 08:00 Room Air 03/27/16 08:00 99.5 18 94 03/23/16 04:00 1.0 I&O- Last 24 Hours up to 6 AM 03/27/16 06:00 Intake Total 1460 ml Output Total 2850 ml Balance -1390 ml Laboratory Data Labs 24H Laboratory Tests 2 03/26/16 14:01: White Blood Count 32.4*H, Red Blood Count 4.50, Hemoglobin 11.4L, Hematocrit 37.0, Mean Corpuscular Volume 82.2, Mean Corpuscular Hemoglobin 25.2L, Mean Corpuscular Hemoglobin Concent 30.7L, Red Cell Distribution Width 19.8H, Platelet Count 400, Neutrophils (%) (Auto) 96.1H, Lymphocytes (%) (Auto) 1.2L, Monocytes (%) (Auto) 1.8, Eosinophils (%) (Auto) 0.3, Basophils (%) (Auto) 0.2, Neutrophils # (Auto) 31.2H, Lymphocytes # (Auto) 0.4L, Monocytes # (Auto) 0.6, Eosinophils # (Auto) 0.1, Basophils # (Auto) 0.1, Erythrocyte Sedimentation Rate 2, Large Unclassified Cells # 0.1, Large Unclassified Cells % 0.4 03/26/16 17:17: Bedside Glucose (Misc Panel) 237H 03/26/16 20:24: Bedside Glucose (Misc Panel) 103 03/27/16 04:18: Anion Gap 12, Blood Urea Nitrogen 45H, Creatinine 0.95, Sodium Level 139, Potassium Level 4.3, Chloride Level 100, Carbon Dioxide Level 27, Calcium Level 8.1L, Glomerular Filtration Rate > 60.0, Prothromb Time International Ratio 1.94 , Prothrombin Time 22.2H 03/27/16 11:33: Bedside Glucose (Misc Panel) 177H 03/27/16 12:10: White Blood Count 22.0H, Red Blood Count 4.16, Hemoglobin 10.8L, Hematocrit 34.2L, Mean Corpuscular Volume 82.2, Mean Corpuscular Hemoglobin 25.9L, Mean Corpuscular Hemoglobin Concent 31.5L, Red Cell Distribution Width 19.9H, Platelet Count 334, Neutrophils (%) (Auto) 95.1H, Lymphocytes (%) (Auto) 1.8L, Monocytes (%) (Auto) 2.3, Eosinophils (%) (Auto) 0.2, Basophils (%) (Auto) 0.1, Neutrophils # (Auto) 21.0H, Lymphocytes # (Auto) 0.4L, Monocytes # (Auto) 0.5, Eosinophils # (Auto) 0.0, Basophils # (Auto) 0.0, Large Unclassified Cells # 0.1 , Large Unclassified Cells % 0.5 CBC/BMP Laboratory Tests 03/26/16 14:01 Red Blood Count 4.50, Mean Corpuscular Volume 82.2, Mean Corpuscular Hemoglobin 25.2 L, Mean Corpuscular Hemoglobin Concent 30.7 L, Red Cell Distribution Width 19.8 H, Neutrophils (%) (Auto) 96.1 H, Lymphocytes (%) (Auto) 1.2 L, Monocytes ( %) (Auto) 1.8, Eosinophils (%) (Auto) 0.3, Basophils (%) (Auto) 0.2, Neutrophils # (Auto) 31.2 H, Lymphocytes # (Auto) 0.4 L, Monocytes # (Auto) 0.6 , Eosinophils # (Auto) 0.1, Basophils # (Auto) 0.1 03/27/16 04:18 Red Blood Count 3.94 L, Mean Corpuscular Volume 82.5, Mean Corpuscular Hemoglobin 26.4 L, Mean Corpuscular Hemoglobin Concent 32.0, Red Cell Distribution Width 19.9 H, Calcium Level 8.1 L 03/27/16 12:10 Red Blood Count 4.16, Mean Corpuscular Volume 82.2, Mean Corpuscular Hemoglobin 25.9 L, Mean Corpuscular Hemoglobin Concent 31.5 L, Red Cell Distribution Width 19.9 H, Neutrophils (%) (Auto) 95.1 H, Lymphocytes (%) (Auto) 1.8 L, Monocytes ( %) (Auto) 2.3, Eosinophils (%) (Auto) 0.2, Basophils (%) (Auto) 0.1, Neutrophils # (Auto) 21.0 H, Lymphocytes # (Auto) 0.4 L, Monocytes # (Auto) 0.5 , Eosinophils # (Auto) 0.0, Basophils # (Auto) 0.0 FSBS Laboratory Tests Test 03/26/16 17:17 03/26/16 20:24 03/27/16 11:33 Range/Units Bedside Glucose (Misc Panel) 237 103 177 83-110 MG/DL Microbiology Microbiology 03/26/16 Blood Culture, Received Pending 03/26/16 Blood Culture, Received Pending 03/27/16 MRSA Screen, Received Pending 03/27/16 Gram Stain - Final, Resulted 03/27/16 Sputum Culture, Resulted Pending 03/25/16 Urine Culture - Final, Complete Enterococcus Faecalis GIL WATTS MD Mar 27, 2016 12:33
[2016-03-27] MEDS ORDERED: VANCOMYCIN HCL 500 MG/10 ML VIAL (J3370) As Ordered ONE (17:17)
[2016-03-27] MEDS: VANCOMYCIN HCL 500 MG in D5W MINI-BAG PLUS 100 ML IV SCH (17:22)
[2016-03-27] MEDS: WARFARIN SOD 2.5 MG TAB PO SCH (17:27)
[2016-03-27] MEDS: LevoFLOXacin 250 MG in APPROPRIATE DILUENT 1 EA IV SCH (18:59)
[2016-03-28] VITALS: BP 120/68
[2016-03-28] MEDS: IPRATROPIUM 0.5MG/ALBUTEROL 2.5MG INH SOL UD 3ML (DUONEB)(J7620) NEB SCH ×6 (00:25→19:42)
[2016-03-28 06:00] VITALS: BP 109/58
[2016-03-28] MEDS: LEVOTHYROXINE 0.025 MG TAB (25 MCG) PO SCH (06:13)
[2016-03-28] MEDS: SLF 3 ML SYR IV SCH ×3 (06:13→22:00)
[2016-03-28 06:22] LABS: MEAN CORPUSCULAR HEMOGLOBIN 25.6 pg (27.0-33.0); MEAN CORPUSCULAR VOLUME 82.6 fl (80.0-96.0); WHITE BLOOD COUNT 20.8 K/mm3 (4.0-10.0)
[2016-03-28 06:40] LABS: ANION GAP 12 MEQ/L (8-16); BLOOD UREA NITROGEN 42 MG/DL (7-18); CALCIUM LEVEL 8.1 MG/DL (8.8-10.2); CARBON DIOXIDE LEVEL 25 MEQ/L (21-32); CHLORIDE LEVEL 100 MEQ/L (98-107); CREATININE FOR GFR 0.73 MG/DL (0.55-1.02); GLOMERULAR FILTRATION RATE > 60.0 (>32); GLUCOSE, FASTING 119 MG/DL (83-110); POTASSIUM SERUM 4.1 MEQ/L (3.5-5.1); SODIUM LEVEL 137 MEQ/L (136-145)
[2016-03-28] MEDS: HumaLOG INSULIN (NovoLOG) PER UNIT SC SCH ×4 (08:52→21:00)
[2016-03-28] MEDS: CitaloPRAM (CeleXA) 20 MG TAB PO SCH (08:53)
[2016-03-28] MEDS: FUROSEMIDE 20 MG TAB PO SCH ×2 (08:53→17:44)
[2016-03-28] MEDS: ASPIRIN 81 MG ENTERIC TAB PO SCH (08:53)
[2016-03-28] MEDS: PANTOPRAZOLE 40MG TAB (PROTONIX) PO SCH (08:53)
--- NOTE | 2016-03-28 10:49 | REP ---
Clinical: Constipation and abdominal pain. Technique: Upright view of the chest with supine and upright views of the abdomen and pelvis. Comparison: 03/26/2016. Findings: Lung garza demonstrate chronic changes with superimposed right upper lobe and bibasilar atelectasis as well as small to moderate pleural effusions. Bowel gas pattern demonstrates marked fecal stasis and presumed constipation without small bowel obstructive pattern. Left iliac stent identified. No organomegaly. Skeletal structures demonstrate age-related degenerative changes. Impression: 1. Suspected multifocal atelectasis and moderate pleural effusions similar to 03/26/2016. 2. Marked fecal stasis and presumed constipation without bowel obstruction. Signed by Cali Alberto MD 03/28/2016 10:41 A
[2016-03-28] MEDS: MIRALAX *UNIT DOSE* 17GM PACKET PO SCH (11:02)
[2016-03-28] MEDS: SENOKOT S TAB PO SCH ×2 (11:02→21:00)
--- NOTE | 2016-03-28 13:26 | IPN ---
DATE: 03/28/2016 Patient seen and examined. No acute events overnight. Denies any chest pain, pressure or discomfort. Nursing staff reported constipation. Denies any fevers or chills. Denies any shortness of breath. VITAL SIGNS: Temperature 97.4, pulse 101, respirations 16, blood pressure 109/58, pulse oximetry 90% on room air. LABORATORY DATA: WBC 20.8, hemoglobin and hematocrit 10.1/32.7, platelets 229. Chemistry: Sodium 137, potassium 4.1, chloride 100, bicarbonate 25, BUN 42, creatinine 0.73. PHYSICAL EXAMINATION: The patient is in no acute distress, frail, alert and oriented times three. HEENT: Normocephalic, atraumatic. CARDIAC: Irregularly irregular, nontachycardia, positive systolic murmur. PULMONARY: Diminished breath sounds bilaterally. No wheezes, rales or rhonchi. ABDOMEN: Mildly distended. Hypoactive bowel sounds. Nontender to palpation. EXTREMITIES: No edema bilateral lower extremities. ASSESSMENT AND PLAN: This is an 80-year-old female patient with underlying medical history of coronary artery disease, paroxysmal atrial fibrillation with rapid ventricular response, hypertension, chronic obstructive pulmonary disease (COPD), history of smoking, history of cerebrovascular accident of right MCA aneurysm, osteoarthritis, cataract, dyslipidemia, depression, peripheral artery disease, gastroesophageal reflux disease (GERD), macular degeneration, hypothyroidism, thoracic aortic aneurysm, anemia. The patient was initially admitted for acute respiratory failure requiring mechanical ventilation, likely secondary to acute chronic obstructive pulmonary disease exacerbation. PROBLEMS: 1. Acute respiratory failure requiring mechanical ventilation. The patient is status post extubation, currently being treated for COPD with Decadron, tapering as tolerated. Continue nebulizer treatment. Continue antibiotics. 2. Bilateral pleural effusion possibly secondary to pulmonary hypertension versus diastolic heart failure. Echo appreciated. Case discussed with Dr. Lua. Continue diuresis as per Dr. Lua. CT is appreciated. Followup BUN and creatinine. 3. Tachybrady syndrome. Cardiology consulted. Medication has been adjusted. Patient on Cardizem. Anticoagulation with Coumadin. Followup INR. 4. Atrial fibrillation. The patient is on Coumadin and Cardizem. Followup INR. Appreciate cardiology assistance. 5. Chronic obstructive pulmonary disease. Nebulizer treatment. Taper steroids. 6. History of ischemic brain injury. Patient on aspirin and Coumadin. Neurology has been consulted initially. 7. History of focal seizure. Patient off Keppra. Will add Keppra if the patient has another seizure. Neurology consultation appreciated. 8. Gastroesophageal reflux disease. Continue medication as ordered. 9. History of macular degeneration. Outpatient followup. 10. Hypertension. Home medication as ordered. 11. Hypothyroidism. Continue Synthroid. 12. Constipation. Bowel regimen is ordered. X-rays appreciated. 13. Deep vein thrombosis (DVT) prophylaxis. Patient on Coumadin. Followup INR. DISPOSITION: Pending physical therapy, clinical improvement.
[2016-03-28 14:00] VITALS: BP 110/60
--- NOTE | 2016-03-28 15:53 | PHACANCOPD ---
PHARMACY VANCOMYCIN DOSING Pt Demographics Demographics Patient Age:80 , Weight:41.200 , Gender: female Adjusted Body Weight Date: 03/28/16, Adjusted Body Weight: Kg Events Past 24 Hours Events Past 24 Hours: YES: Elevation in WBC, NO: Change in CrCl, Dialysis, Diuretic Therapy, Fever, Other, Pending Diagnostics, Pending Procedures Vancomycin Vancomycin indication: increasing WBC Vancomycin Target Ranges: 15-20 mcg/ml Vancomycin Load Y/N: Yes Load Dose Date Time Vancomycin Load Dose: 1000mg Date: 03/26 Time: 18:00 Vancomycin Dose Date: 03/28/16. Current Vancomycin Dose: [500mg IV q12h @21] Date: 03/26/16. Current Vancomycin Dose: [500mg IV q24h @16] Intermittent Dosing?: No Labs Labs Item Value Date Time Vancomycin Level Trough 2.3 UG/ML L 03/28/16 1444 Creatinine 0.78 MG/DL 03/26/16 0449 Creatinine 0.95 MG/DL 03/27/16 0418 Creatinine 0.73 MG/DL 03/28/16 0604 White Blood Count 32.4 K/mm3 *H 03/26/16 1401 White Blood Count 20.2 K/mm3 H 03/27/16 0418 White Blood Count 22.0 K/mm3 H 03/27/16 1210 White Blood Count 20.8 K/mm3 H 03/28/16 0604 Micro Microbiology 03/26/16 Blood Culture - Preliminary, Resulted No growth after 24 hours . All specim... 03/26/16 Blood Culture - Preliminary, Resulted No growth after 24 hours . All specim... 03/28/16 Gram Stain, Received Pending 03/28/16 Sputum Culture, Received Pending 03/27/16 MRSA Screen - Final, Complete 03/27/16 Gram Stain - Final, Resulted 03/27/16 Sputum Culture - Preliminary, Resulted Staphylococcus Aureus 03/25/16 Urine Culture - Final, Complete Enterococcus Faecalis Creatinine Clearance Date:03/28/16. Creatinine Clearance: [51 ml/min]. Assessment and Plan Maintaining Current Dose?: No Reason for dose change: Trough too high Pharmacist Note Pharmacist Note Date: 03/28/16. Pharmacist note: pt has positive cultures for Staph aureus ( sputum) and E. faecalis (urine, ETIENNE = 1). She was started on 1g of vanco and given 500mg q24h after that. Vanco trough before the 3rd dose came back at 2.3. I have changed her dosing to 500mg IV q12h to start 5 hours after the last dose. We will continue to monitor. Manolo Steele.Ingris. Mar 28, 2016 15:53
[2016-03-28] MEDS: VANCOMYCIN HCL 500 MG in D5W MINI-BAG PLUS 100 ML IV SCH (16:18)
[2016-03-28] MEDS: WARFARIN SOD 2.5 MG TAB PO SCH (17:44)
[2016-03-28] MEDS: LevoFLOXacin 250 MG in APPROPRIATE DILUENT 1 EA IV SCH (17:44)
[2016-03-28] MEDS ORDERED: VANCOMYCIN HCL 500 MG in D5W MINI-BAG PLUS 100 ML IV SCH (21:00)
[2016-03-28 22:00] VITALS: BP 102/60
[2016-03-29] MEDS: IPRATROPIUM 0.5MG/ALBUTEROL 2.5MG INH SOL UD 3ML (DUONEB)(J7620) NEB SCH ×8 (04:00→22:26)
[2016-03-29 06:00] VITALS: BP 146/64
[2016-03-29] MEDS: LEVOTHYROXINE 0.025 MG TAB (25 MCG) PO SCH (06:28)
[2016-03-29] MEDS: SLF 3 ML SYR IV SCH ×3 (06:28→21:09)
[2016-03-29 06:42] LABS: MEAN CORPUSCULAR HGB CONC 31.7 g/dl (32.0-36.5); MEAN CORPUSCULAR VOLUME 82.1 fl (80.0-96.0)
[2016-03-29 06:49] LABS: INR 1.99
[2016-03-29 06:55] LABS: ANION GAP 9 MEQ/L (8-16); BLOOD UREA NITROGEN 45 MG/DL (7-18); CALCIUM LEVEL 8.2 MG/DL (8.8-10.2); CARBON DIOXIDE LEVEL 30 MEQ/L (21-32); CHLORIDE LEVEL 99 MEQ/L (98-107); GLOMERULAR FILTRATION RATE > 60.0 (>32); GLUCOSE, FASTING 109 MG/DL (83-110); POTASSIUM SERUM 4.3 MEQ/L (3.5-5.1); SODIUM LEVEL 138 MEQ/L (136-145)
[2016-03-29] MEDS: HumaLOG INSULIN (NovoLOG) PER UNIT SC SCH ×4 (08:32→20:44)
[2016-03-29] MEDS: MIRALAX *UNIT DOSE* 17GM PACKET PO SCH (08:33)
[2016-03-29] MEDS: FUROSEMIDE 20 MG TAB PO SCH ×2 (08:33→17:50)
[2016-03-29] MEDS: CEFDINIR 300 MG CAP (OMNICEF) PO SCH ×2 (08:33→21:09)
[2016-03-29] MEDS: ASPIRIN 81 MG ENTERIC TAB PO SCH (08:33)
[2016-03-29] MEDS: PANTOPRAZOLE 40MG TAB (PROTONIX) PO SCH (08:33)
[2016-03-29] MEDS: CitaloPRAM (CeleXA) 20 MG TAB PO SCH (08:33)
[2016-03-29] MEDS: SENOKOT S TAB PO SCH ×2 (08:33→21:09)
[2016-03-29 14:00] VITALS: BP 135/67
[2016-03-29] MEDS: WARFARIN SOD 3 MG TAB PO SCH (17:50)
--- NOTE | 2016-03-29 18:48 | IPN ---
DATE: 03/29/2016 SUBJECTIVE: The patient was seen and examined. No acute distress. No further complaints. Denies any chest pain, pressure, discomfort. Denies any shortness of breath. Patient comfortable. No fevers or chills. VITAL SIGNS: Temperature 98.6, pulse 93, respirations 20, blood pressure 135/67, pulse oximetry 97% on room air. LABORATORY DATA: WBC 22, hemoglobin and hematocrit 10.3 over 32.4, platelets 280. Chemistry: Sodium 138, potassium 4.5, chloride 99, bicarbonate 30, BUN 45, creatinine 0.9. C-reactive protein negative. PHYSICAL EXAMINATION: GENERAL: The patient alert and oriented times three. In no acute distress. Frail. HEENT: Normocephalic, atraumatic. CARDIAC: Irregularly irregular. No tachycardia. Positive systolic murmur. PULMONARY: Diminished breath sounds bilaterally. No wheezes, rales, or rhonchi. ABDOMEN: Distention has much improved. Hypoactive bowel sounds. Nontender to palpation. No rebound, no guarding. EXTREMITIES: No edema bilateral lower extremities. 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 The patient was initially admitted for acute respiratory failure requiring mechanical ventilation, likely secondary to acute COPD exacerbation. 1. Acute respiratory failure requiring mechanical ventilation, status post extubation. Treated for COPD with Decadron, tapering steroids as tolerated, nebulizer treatment. The patient will complete an antibiotic course for treatment of urinary tract infection (UTI) and pneumonia. 2. Bilateral pleural effusions, possibly secondary to pulmonary hypertension versus diastolic heart failure. Echo appreciated. Case discussed with Dr. Lua. Diuresis was per Dr. Lua. CT is appreciated. Followup blood urea nitrogen (BUN) and creatinine. 3. Tachycardia-bradycardia (tachy-haylie) syndrome. Cardiology consulted. Medication has been adjusted. Patient is on Cardizem, anticoagulation with Coumadin. Followup international normalized ratio (INR). 4. Atrial fibrillation. Patient on Coumadin and Cardizem. Followup INR. Cardiology assistance appreciated. 5. Chronic obstructive pulmonary disease (COPD). Nebulizer treatment, taper steroids. 6. History of ischemic brain injury. Patient on aspirin and Coumadin. Neurology has been consulted initially. Appreciate neurology's assistance. 7. History of focal seizure. Patient off Keppra. We will add Keppra if the patient has another episode. Neurology consultation appreciated. 8. Gastroesophageal reflux disease (GERD). Continue current medication. 9. History of macular degeneration. Outpatient followup. 10. Hypertension. Continue home medications. 11. Hypothyroidism. Continue Synthroid. 12. Constipation. Bowel regimen as ordered. X-ray appreciated. 13. Leukocytosis secondary to steroid. Taper steroid, and cultures appreciated. 14. Deep venous thrombosis (DVT) prophylaxis. Patient on Coumadin with therapeutic INR. DISPOSITION: Pending physical therapy.
[2016-03-29 22:00] VITALS: BP 120/60
[2016-03-30 06:00] VITALS: BP 121/68
[2016-03-30 06:00] LABS: MEAN CORPUSCULAR HEMOGLOBIN 25.8 pg (27.0-33.0); MEAN CORPUSCULAR HGB CONC 32.3 g/dl (32.0-36.5); MEAN CORPUSCULAR VOLUME 79.9 fl (80.0-96.0); RED CELL DISTRIBUTION WIDTH 21.6 % (11.5-14.5); WHITE BLOOD COUNT 20.5 K/mm3 (4.0-10.0)
[2016-03-30 06:02] LABS: INR 2.05
[2016-03-30] MEDS: LEVOTHYROXINE 0.025 MG TAB (25 MCG) PO SCH (06:09)
[2016-03-30] MEDS: SLF 3 ML SYR IV SCH ×3 (06:10→20:10)
[2016-03-30 06:17] LABS: ANION GAP 8 MEQ/L (8-16); BLOOD UREA NITROGEN 52 MG/DL (7-18); CALCIUM LEVEL 8.1 MG/DL (8.8-10.2); CARBON DIOXIDE LEVEL 28 MEQ/L (21-32); CHLORIDE LEVEL 102 MEQ/L (98-107); CREATININE FOR GFR 0.79 MG/DL (0.55-1.02); GLOMERULAR FILTRATION RATE > 60.0 (>32); GLUCOSE, FASTING 86 MG/DL (83-110); MAGNESIUM LEVEL 2.1 MG/DL (1.8-2.4); POTASSIUM SERUM 4.5 MEQ/L (3.5-5.1); SODIUM LEVEL 138 MEQ/L (136-145)
[2016-03-30] MEDS: IPRATROPIUM 0.5MG/ALBUTEROL 2.5MG INH SOL UD 3ML (DUONEB)(J7620) NEB SCH ×5 (07:17→22:56)
[2016-03-30] MEDS: HumaLOG INSULIN (NovoLOG) PER UNIT SC SCH ×4 (07:30→20:11)
[2016-03-30] MEDS: PANTOPRAZOLE 40MG TAB (PROTONIX) PO SCH (08:20)
[2016-03-30] MEDS: MIRALAX *UNIT DOSE* 17GM PACKET PO SCH (08:20)
[2016-03-30] MEDS: CitaloPRAM (CeleXA) 20 MG TAB PO SCH (08:20)
[2016-03-30] MEDS: SENOKOT S TAB PO SCH ×2 (08:20→20:10)
[2016-03-30] MEDS: CEFDINIR 300 MG CAP (OMNICEF) PO SCH ×2 (08:20→20:09)
[2016-03-30] MEDS: ASPIRIN 81 MG ENTERIC TAB PO SCH (08:20)
[2016-03-30] MEDS: FUROSEMIDE 20 MG TAB PO SCH ×2 (08:20→17:50)
[2016-03-30 14:00] VITALS: BP 137/62
--- NOTE | 2016-03-30 14:41 | IPN ---
DATE OF SERVICE: 03/30/2016 Patient seen and examined. No acute events overnight. Patient denies any chest pain, pressure, discomfort. No fever or chills. Feeling comfortable. VITAL SIGNS: Temperature 98.4, pulse 87, respirations 17, blood pressure 121/68, pulse oximetry 95% on room air. LABORATORY: WBC 20.5, hemoglobin and hematocrit (H and H) 9.8 and 30.2, platelets 272. Chemistry: Sodium 138, potassium 4.5, chloride 102, bicarbonate 28, BUN 52, creatinine 0.79. C-reactive protein negative. PHYSICAL EXAMINATION: GENERAL: Patient alert and oriented times three, in no acute distress. HEENT: Normocephalic, atraumatic. CARDIAC: Irregularly irregular. Not tachycardic. 2/6 systolic murmur. PULMONARY: Diminished breath sounds bilaterally. No wheezes, rales or rhonchi. ABDOMEN: Distended. Distention much improved. Hypoactive bowel sounds. Nontender to palpation. No rebound. No guarding. EXTREMITIES: No edema bilateral lower extremities. 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 The patient was initially admitted for acute respiratory failure requiring mechanical ventilation, likely secondary to acute COPD exacerbation. PROBLEMS: 1. Acute respiratory failure requiring mechanical ventilation. Patient was extubated and treated for chronic obstructive pulmonary disease (COPD) with Decadron steroid tapers, nebulizer treatments. Patient will complete antibiotic treatment for urinary tract infection (UTI) and pneumonia. 2. Bilateral pleural effusions, possibly secondary to pulmonary hypertension versus diastolic heart failure. Echocardiogram appreciated. Case discussed with Dr. Lua. Patient was diuresed as per cardiology. CT appreciated. Follow up BUN and creatinine. 3. Tachy/haylie syndrome. Cardiology consulted. Medication modified. Patient currently on Cardizem. 4. Atrial fibrillation. Patient current on Cardizem. Continue Coumadin. Follow up INR. 5. Chronic obstructive pulmonary disease (COPD). Nebulizer treatment. Taper steroids. 6. History of ischemic brain injury/history of cerebrovascular accident (CVA). Aspirin, Coumadin. Neurology has been initially consulted. 7. Focal seizure. Patient off Keppra. Will add Keppra if patient has another episode. Neurology was consulted during the hospital admission. 8. Gastroesophageal reflux disease (GERD). Continue current medication. 9. History of macular degeneration. Outpatient followup. 10. Hypertension. Continue home medication. 11. Hypothyroidism. Continue Synthroid. 12. Constipation. Bowel regimen prescribed. 13. Leukocytosis secondary to steroids. Culture appreciated. Taper steroid. 14. Deep venous thrombosis (DVT) prophylaxis. Patient on Coumadin. Follow up INR. DISPOSITION: Pending physical therapy. Likely discharge within the next 2-3 days.
[2016-03-30] MEDS: WARFARIN SOD 3 MG TAB PO SCH (17:50)
[2016-03-30 22:00] VITALS: BP 117/53
[2016-03-31] MEDS: LEVOTHYROXINE 0.025 MG TAB (25 MCG) PO SCH (05:38)
[2016-03-31] MEDS: SLF 3 ML SYR IV SCH ×3 (05:38→20:19)
[2016-03-31 06:00] VITALS: BP 111/53
[2016-03-31 06:02] LABS: MEAN CORPUSCULAR HEMOGLOBIN 26.4 pg (27.0-33.0); MEAN CORPUSCULAR HGB CONC 31.8 g/dl (32.0-36.5); MEAN CORPUSCULAR VOLUME 83.1 fl (80.0-96.0); RED CELL DISTRIBUTION WIDTH 20.4 % (11.5-14.5); WHITE BLOOD COUNT 23.5 K/mm3 (4.0-10.0)
[2016-03-31 06:05] LABS: INR 1.82
[2016-03-31 06:17] LABS: ANION GAP 10 MEQ/L (8-16); BLOOD UREA NITROGEN 50 MG/DL (7-18); CALCIUM LEVEL 8.1 MG/DL (8.8-10.2); CARBON DIOXIDE LEVEL 28 MEQ/L (21-32); CHLORIDE LEVEL 100 MEQ/L (98-107); CREATININE FOR GFR 0.89 MG/DL (0.55-1.02); GLOMERULAR FILTRATION RATE > 60.0 (>32); GLUCOSE, FASTING 84 MG/DL (83-110); MAGNESIUM LEVEL 2.2 MG/DL (1.8-2.4); POTASSIUM SERUM 4.8 MEQ/L (3.5-5.1); SODIUM LEVEL 138 MEQ/L (136-145)
[2016-03-31] MEDS: IPRATROPIUM 0.5MG/ALBUTEROL 2.5MG INH SOL UD 3ML (DUONEB)(J7620) NEB SCH ×5 (07:21→23:38)
[2016-03-31] MEDS: HumaLOG INSULIN (NovoLOG) PER UNIT SC SCH ×4 (07:30→20:56)
[2016-03-31] MEDS: PANTOPRAZOLE 40MG TAB (PROTONIX) PO SCH (09:45)
[2016-03-31] MEDS: ASPIRIN 81 MG ENTERIC TAB PO SCH (09:45)
[2016-03-31] MEDS: CitaloPRAM (CeleXA) 20 MG TAB PO SCH (09:45)
[2016-03-31] MEDS: FUROSEMIDE 20 MG TAB PO SCH ×2 (09:46→17:37)
[2016-03-31] MEDS: CEFDINIR 300 MG CAP (OMNICEF) PO SCH ×2 (11:22→20:18)
[2016-03-31] MEDS: MIRALAX *UNIT DOSE* 17GM PACKET PO SCH (11:22)
[2016-03-31] MEDS: SENOKOT S TAB PO SCH ×2 (11:23→20:19)
[2016-03-31 14:00] VITALS: BP 111/55
--- NOTE | 2016-03-31 15:05 | REP ---
PA and lateral chest 03/31/2016 Indication: Follow up pleural a few effusion Comparison: Prior chest radiograph 03/26/2016, CT chest 03/22/2016, CT chest of 15 Cardiac silhouette is of normal size. There is mild aneurysmal dilatation of the thoracic aorta. Pleural effusions are improved bilaterally, small on the left and minimal on right. Left retrocardiac opacity is noted consistent with small area of consolidation and less likely mass. There is hyperinflation consistent with COPD Impression COPD ; mild aneurysmal dilatation of the thoracic aorta Pleural effusions are improved and near totally resolved. Small retrocardiac opacity most consistent with consolidation and less likely mass. Follow-up to resolution recommended. Signed by Vane Henriquez MD 03/31/2016 02:56 P
[2016-03-31] MEDS ORDERED: WARFARIN SOD 2.5 MG TAB PO SCH (17:00)
[2016-03-31] MEDS ORDERED: WARFARIN SOD 1 MG TAB PO SCH (17:00)
--- NOTE | 2016-03-31 18:23 | IPN ---
DATE: 03/31/2016 The patient is seen and examined. Comfortable. Only minimal dyspnea. No change significantly from previous. Working with physical therapy (PT). Reported getting stronger. Denies any fever, chills, chest pain, pressure, or discomfort. VITAL SIGNS: Temperature 97.7, pulse 87, respirations 26, blood pressure 109/59, pulse oximetry 94% on room air. LABORATORY DATA: WBC 23.5, hemoglobin and hematocrit 10/31.3, platelets 244. Chemistry: Sodium 138, potassium 4.8, chloride 100, bicarbonate 28, BUN 50, creatinine 0.89, C-reactive protein less than 0.3. PHYSICAL EXAMINATION: GENERAL: The patient is alert and oriented times three. In no acute distress. HEENT: Normocephalic, atraumatic. CARDIAC: Irregularly irregular. Not tachycardic. 2/6 systolic murmur. PULMONARY: Diminished breath sounds in bilateral base. No wheeze. No rhonchi. ABDOMEN: Minimal distention, much improved. Hypoactive bowel sounds. No rebound or guarding. EXTREMITIES: No edema in bilateral lower extremities. ASSESSMENT AND PLAN: This is an 80-year-old female patient with underlying medical history of coronary arterial disease, paroxysmal atrial fibrillation with rapid ventricular response, hypertension, chronic obstructive pulmonary disease (COPD), history of smoking, history of CVA with right middle MCA aneurysm, osteoarthritis, cataract, dyslipidemia, depression, peripheral artery disease, gastroesophageal reflux disease (GERD), macular degeneration, hypothyroidism, thoracic aortic aneurysm, and anemia. The patient was initially admitted for acute respiratory failure and requiring mechanical ventilation, likely secondary to acute COPD exacerbation. 1. Acute respiratory failure requiring mechanical ventilation. The patient was intubated and treated for COPD exacerbation with steroid taper, Decadron. Currently extubated. Continue taper steroids. Nebulizer treatments. The patient is to continue antibiotic. Cultures appreciated. The patient is treated for urinary tract infection (UTI) and pneumonia. Repeat x-ray shows improvement. 2. Bilateral pleural effusion, possibly secondary to pulmonary hypertension versus diastolic congestive heart failure. Echo appreciated. Case discussed with Dr. Lua. The patient was diuresed as per cardiology. CT appreciated. Followup BUN and creatinine. Repeat x-ray shows improvement of pleural effusion. 3. Tachybrady syndrome. Cardiology consulted. Medication modified. Patient currently on Cardizem. 4. Atrial fibrillation. The patient is on Cardizem. Continue Coumadin. Followup INR. Coumadin dose adjusted. 5. COPD. Nebulizer treatment and taper steroids. 6. History of CVA. Aspirin and Coumadin. Neurology consulted during this admission. 7. Focal seizure. The patient is off Keppra. We will add Keppra if the patient has another episode. Neurology was consulted during this admission. 8. Gastroesophageal reflux disease (GERD). Continue current medications. 9. History of macular degeneration. Outpatient followup. 10. Hypertension. Continue to monitor. Continue home medications. 11. Hypothyroidism. Continue Synthroid. 12. Constipation. Bowel regimen as prescribed. 13. Leukocytosis secondary to steroids, given C-reactive protein is negative. Taper steroids. 14. Deep vein thrombosis (DVT) prophylaxis. The patient is on Coumadin. Followup INR. DISPOSITION: Pending physical therapy (PT). Likely discharge over the next day or two.
[2016-03-31 22:00] VITALS: BP 117/60
[2016-04-01] MEDS: IPRATROPIUM 0.5MG/ALBUTEROL 2.5MG INH SOL UD 3ML (DUONEB)(J7620) NEB SCH ×3 (04:19→11:38)
[2016-04-01 06:00] VITALS: BP 104/51
[2016-04-01 06:11] LABS: MEAN CORPUSCULAR HEMOGLOBIN 25.9 pg (27.0-33.0); MEAN CORPUSCULAR VOLUME 83.6 fl (80.0-96.0); RED CELL DISTRIBUTION WIDTH 21.9 % (11.5-14.5); WHITE BLOOD COUNT 18.7 K/mm3 (4.0-10.0)
[2016-04-01 06:18] LABS: INR 1.79
[2016-04-01] MEDS: LEVOTHYROXINE 0.025 MG TAB (25 MCG) PO SCH (06:19)
[2016-04-01] MEDS: SLF 3 ML SYR IV SCH ×2 (06:20→14:00)
[2016-04-01 06:31] LABS: ANION GAP 7 MEQ/L (8-16); BLOOD UREA NITROGEN 48 MG/DL (7-18); CARBON DIOXIDE LEVEL 31 MEQ/L (21-32); CHLORIDE LEVEL 98 MEQ/L (98-107); CREATININE FOR GFR 0.87 MG/DL (0.55-1.02); GLOMERULAR FILTRATION RATE > 60.0 (>32); GLUCOSE, FASTING 86 MG/DL (83-110); MAGNESIUM LEVEL 2.1 MG/DL (1.8-2.4); POTASSIUM SERUM 3.9 MEQ/L (3.5-5.1); SODIUM LEVEL 136 MEQ/L (136-145)
[2016-04-01] MEDS: HumaLOG INSULIN (NovoLOG) PER UNIT SC SCH ×2 (07:30→12:00)
[2016-04-01] MEDS: CEFDINIR 300 MG CAP (OMNICEF) PO SCH (09:51)
[2016-04-01] MEDS: SENOKOT S TAB PO SCH (09:51)
[2016-04-01] MEDS: ASPIRIN 81 MG ENTERIC TAB PO SCH (09:51)
[2016-04-01] MEDS: MIRALAX *UNIT DOSE* 17GM PACKET PO SCH (09:52)
[2016-04-01] MEDS: FUROSEMIDE 20 MG TAB PO SCH (09:52)
[2016-04-01] MEDS: PANTOPRAZOLE 40MG TAB (PROTONIX) PO SCH (09:52)
[2016-04-01] MEDS: CitaloPRAM (CeleXA) 20 MG TAB PO SCH (09:52)
[2016-04-01 12:26] VITALS: BP 103/52
[2016-04-01 12:40] VITALS: BP 103/52
[2016-04-01] MEDS ORDERED: SENN1TAB2 PO (12:58)
[2016-04-01] MEDS ORDERED: CARD360C PO (12:58)
[2016-04-01] MEDS ORDERED: COUM1TAB14 PO (12:58)
[2016-04-01] MEDS ORDERED: CEFD300CAP PO (12:58)
[2016-04-01] MEDS ORDERED: DEXA5TA PO (12:58)
[2016-04-01] MEDS ORDERED: LEVO25TA5 PO (12:58)
[2016-04-01] MEDS ORDERED: FURO20TA2 PO (12:58)
[2016-04-01 14:00] VITALS: BP 135/53
--- NOTE | 2016-04-01 16:07 | DSES ---
DATE OF ADMISSION: 03/15/2016 DATE OF DISCHARGE: 04/01/2016 NEUROLOGIST: Dr. Majano ACUPUNCTURIST: Dr. Lua PRIMARY CARE PROVIDER: Dr. Mcguire FINAL DIAGNOSES: 1. Acute respiratory failure requiring mechanical ventilation. 2. Acute chronic obstructive pulmonary disease (COPD) exacerbation. 3. Bilateral pleural effusions. 4. Pulmonary hypertension. 5. Diastolic congestive heart failure (CHF) with fluid overload. 6. Tachybrady syndrome. 7. Atrial fibrillation with rapid ventricular response. 8. History of CVA. 9. Focal seizure. 10. Gastroesophageal reflux disease (GERD). 11. History of macular degeneration. 12. Hypertension. 13. Hypothyroidism. 14. Constipation. 15. Leukocytosis. 16. Urinary tract infection (UTI). 17. Staphylococcus aureus pneumonia. HISTORY OF PRESENT ILLNESS: This is an 80-year-old female patient with underlying medical history of occipital lobe stroke, seizure disorder, coronary arterial disease, paroxysmal atrial fibrillation with rapid ventricular response, hypertension, COPD, history of smoking, history of CVA, osteoarthritis, cataracts, dyslipidemia, depression, peripheral arterial disease, GERD, macular degeneration, hypothyroidism, thoracic aortic aneurysm, anemia. The patient was transferred from [facility] initially to [facility] intensive care unit (ICU) for unresponsiveness. Found to have respiratory distress. The patient was subsequently intubated and was found hypotensive, on pressors. CT scan shows left occipital CVA. Focal seizure described in the emergency department. Medical record shows a history of CVA two times in 2013, also hypertension, COPD, heavy smoker, [employer] malignancy, right middle cerebral artery aneurysm, osteoarthritis, cataracts, left femoral fracture, dyslipidemia, depression, atherosclerotic peripheral vascular disease, GERD, macular degeneration, atrial fibrillation with rapid ventricular response. The patient was initially admitted to the intensive care unit (ICU) service. HOSPITAL COURSE: The patient was initially admitted to ICU service under mechanical ventilation. Neurology was consulted. EEG was done. Steroid nebulizer treatment was given. Antibiotics were given to the patient as well. Echocardiogram was appreciated. Cardiology was consulted for diastolic congestive heart failure with tachybrady syndrome. Home medications were adjusted by Dr. Lua. The patient's steroid was tapered. The patient was subsequently weaned off the ventilator. Subsequently transferred to medicine service. The patient's pleural effusion was followed. Cultures were sent. Antibiotics were continued. The patient's medical condition progressively improved. Later transferred to medical/surgical floor for further physical therapy (PT). Insulin was given. The patient was diuresed as per cardiology. Coumadin was given for atrial fibrillation. INR was followed, and Coumadin dosage has been adjusted. The patient had leukocytosis secondary to steroids. Steroids were tapered. Cultures were appreciated with urinary tract infection (UTI) with Enterococcus faecalis and Staphylococcus aureus in the sputum and also mold-like organism. Sputum culture was discussed with infectious disease, Dr. Damon. As per Dr. Damon, mold-like organism is likely a contaminant. The patient's clinical condition progressively improved in hospital course. Reported improved respirations. Able to ambulate. Denies any fevers, chills, chest pain, pressure or discomfort. Tolerating diet. Subsequently, ready for discharge for further care as an outpatient. The patient has 19/10 care at home. Physical therapy (PT) evaluation appreciated. VITAL SIGNS: Temperature 98.3, pulse 91, respirations 28, blood pressure 103/52, pulse oximetry 95% on room air. LABORATORY DATA: WBC 18.7, hemoglobin and hematocrit 9.3/29.9, platelets 197. Chemistry: Sodium 136, potassium 3.9, chloride 98, bicarbonate 31, BUN 48, creatinine 0.87. C-reactive protein 0.34. DISCHARGE MEDICATIONS: - Cefdinir 300 mg by mouth twice a day for 10 more days - dexamethasone taper 0.5 mg tablet to take two tablets daily for 2 days, then one tablet daily for 2 days and then stop - Cardizem CD 350 mg by mouth daily - Lasix 20 mg by mouth twice a day - Synthroid 0.025 mg by mouth daily - Senna plus two tablets by mouth twice a day - Coumadin 4 mg by mouth daily. Check INR with primary care provider in 2 to 3 days - Xanax 0.5 mg by mouth as needed - aspirin 81 mg by mouth daily - Lipitor 80 mg by mouth daily - citalopram 20 mg by mouth daily - Colace 100 mg by mouth daily as needed - Lutein Vision Blend one capsule by mouth daily - Protonix 40 mg by mouth daily - theophylline 300 mg by mouth daily DISCHARGE INSTRUCTIONS: The patient is instructed to followup with primary care provider in 5 days and followup with transition specialist in 2 weeks. Return to the hospital if symptoms worsen. Check INR in 3 to 5 days.
[2016-04-01] MEDS ORDERED: WARFARIN SOD 4 MG TAB PO SCH (17:00)
== END 2016-04-01 14:59 | disposition home or self-care (01) | DRG 208 ==
LOC: M ICU 04:50 → M MSPAV 03-27 13:03
PROVIDERS: ADMIT Internal Medicine Pulmonary Disease; ATTEND Hospitalist
PROC: 5A1935Z Respiratory Ventilation, Less than 24 Consecutive Hours (ICD-10-PCS; principal; 2016-03-15)
DX: J96.00 Acute respiratory failure, unspecified whether with hypoxia or hypercapnia (principal); I63.9 Cerebral infarction, unspecified; G40.89 Other seizures; Z68.1 Body mass index [BMI] 19.9 or less, adult; I50.32 Chronic diastolic (congestive) heart failure; J44.1 Chronic obstructive pulmonary disease with (acute) exacerbation; N39.0 Urinary tract infection, site not specified; J91.8 Pleural effusion in other conditions classified elsewhere; I50.30 Unspecified diastolic (congestive) heart failure; R63.6 Underweight; I48.0 Paroxysmal atrial fibrillation; E03.9 Hypothyroidism, unspecified; I10 Essential (primary) hypertension; K59.00 Constipation, unspecified; K21.9 Gastro-esophageal reflux disease without esophagitis; H35.30 Unspecified macular degeneration; D72.829 Elevated white blood cell count, unspecified; I27.89 Other specified pulmonary heart diseases; G40.909 Epilepsy, unspecified, not intractable, without status epilepticus; Z86.73 Personal history of transient ischemic attack (TIA), and cerebral infarction without residual deficits; I25.10 Atherosclerotic heart disease of native coronary artery without angina pectoris; M19.90 Unspecified osteoarthritis, unspecified site; E78.5 Hyperlipidemia, unspecified; Z87.891 Personal history of nicotine dependence; I70.209 Unspecified atherosclerosis of native arteries of extremities, unspecified extremity; I49.5 Sick sinus syndrome; Z79.899 Other long term (current) drug therapy; Z79.82 Long term (current) use of aspirin; I34.0 Nonrheumatic mitral (valve) insufficiency; I35.0 Nonrheumatic aortic (valve) stenosis; Z79.01 Long term (current) use of anticoagulants

== ENCOUNTER 2016-04-06 01:21 | Inpatient (IN) | payer MEDICARE, OTHER ==
[~2016-04-06] VITALS: Ht 157.5 cm; Wt 39.9 kg
[2016-04-06] VITALS (7 sets, daily range): BP systolic 93–134; BP diastolic 54–65
[~2016-04-06 01:21] MED LIST changes: +ASPI1TAB PO; +CARD360C PO; +CEFD300CAP PO; +COUM2TAB10 PO; +DEXA5TA PO; +DIGO0.12 PO; +DILT240C28 PO; +DILT240C77 PO; +FURO20TA2 PO; +LEVO50TA5 PO; +LISI-542 PO; +LUTECAP2 PO; +METO-207 PO; +METO50TA9 PO; +PANT20TA PO; +SENN1TAB2 PO; +STOO100C PO; +THEO30TASA PO; +XANA0.5T PO
[2016-04-06] MEDS ORDERED: IPRATROPIUM 0.5MG/ALBUTEROL 2.5MG INH SOL UD 3ML (DUONEB)(J7620) As Ordered ONE ×2 (01:42→15:40)
[2016-04-06 02:09] LABS: ABG BASE EXCESS 7.3 (-2.0-2.0); ABG DEVICE NASAL CANN; ABG HCO3 32.4 MEQ/L (22.0-26.0); ABG PARTIAL PRESSURE CO2 49.1 mmHg (35.0-45.0); ABG PARTIAL PRESSURE O2 96.5 mmHg (75.0-100.0); ABG STANDARD HCO3 31.2 MEQ/L (22.0-26.0); ABG TOTAL CO2 33.9 MEQ/L (23.0-31.0); ABG pH (ARTERIAL) 7.437 UNITS (7.350-7.450)
[2016-04-06] MEDS ORDERED: methylPREDNISolone INJ 125 MG/2 ML VIAL (J2930) As Ordered ONE (02:14)
[2016-04-06 02:32] LABS: EOS % 0.2 % (0.0-3.0); LARGE UNSTAINED CELL # 0.1 K/mm3 (0.0-0.4); LARGE UNSTAINED CELL % 0.5 % (0.0-4.0); LYMPH # 0.3 K/mm3 (1.5-4.5); LYMPH % 2.8 % (24.0-44.0); MEAN CORPUSCULAR HGB CONC 31.9 g/dl (32.0-36.5); MEAN CORPUSCULAR VOLUME 84.6 fl (80.0-96.0); MONO # 0.2 K/mm3 (0.0-0.8); MONO % 1.7 % (0.0-5.0); NEUTROPHILS # 11.7 K/mm3 (1.8-7.7); NEUTROPHILS % 94.7 % (36.0-66.0); PLATELET COUNT, AUTOMATED 172 k/mm3 (150-450); RED CELL DISTRIBUTION WIDTH 21.4 % (11.5-14.5); WHITE BLOOD COUNT 12.4 K/mm3 (4.0-10.0)
[2016-04-06 02:57] LABS: ANION GAP 12 MEQ/L (8-16); BLOOD UREA NITROGEN 40 MG/DL (7-18); CALCIUM LEVEL 7.7 MG/DL (8.8-10.2); CARBON DIOXIDE LEVEL 31 MEQ/L (21-32); CHLORIDE LEVEL 100 MEQ/L (98-107); CREATININE FOR GFR 0.81 MG/DL (0.55-1.02); GLOMERULAR FILTRATION RATE > 60.0 (>32); GLUCOSE, FASTING 129 MG/DL (83-110); POTASSIUM SERUM 3.2 MEQ/L (3.5-5.1); SODIUM LEVEL 143 MEQ/L (136-145)
[2016-04-06 03:15] LABS: INR 5.03
--- NOTE | 2016-04-06 05:10 | REPUSA ---
CLINICAL HISTORY: Pulmonary edema. TECHNIQUE: Multiple axial CT images were obtained through chest without IV contrast material. MPR cor onal and sagittal sequences were obtained. COMMENTS: Comparison is made to the prior exam performed on 03/22/2016. Mild decrease in bilateral pleural effusions. Decreased bilateral basilar atelectatic airspace disease in the lower lobes. Increased bilateral multifocal groundglass densities of the lungs. No change in moderate pulmonary emphysema. No change in the aneurysm of the aorta which measures 4.7 cm in its largest transverse dimension. Thi s is at the left of the descending aorta. IMPRESSION: Significant decrease in bilateral pleural effusions. Significant increase in bilateral multifocal, multilobar groundglass densities of the lungs. Multifoc al pulmonary edema versus superimposed pneumonia. No change in the aneurysm of the aorta. Thank you for your kind referral of this patient.
[2016-04-06] MEDS ORDERED: ACETAMINOPHEN TAB 650MG DOSE (2X325MG) PO PRN (05:45)
[2016-04-06] MEDS ORDERED: FUROSEMIDE 40 MG/4 ML VIAL (J1940) As Ordered ONE ×2 (05:52→13:57)
[2016-04-06] MEDS: VANCOMYCIN HCL 750 MG, VIAL MATE ADAPTER 1 EACH in D5W 250 ML IV SCH (06:00)
[2016-04-06] MEDS: LEVOTHYROXINE 0.025 MG TAB (25 MCG) PO SCH (06:00)
[2016-04-06] MEDS ORDERED: POTASSIUM CHLORIDE 10% LIQ 20 MEQ/15 ML UDC PO ONE (06:15)
[2016-04-06] MEDS ORDERED: PHYTONADIONE 2.5 MG **1/2 TAB PO ONE (06:15)
[2016-04-06] MEDS ORDERED: ALBUTEROL SULFATE 2.5 MG/0.5 ML INH NEB SOLN NEB PRN (06:15)
--- NOTE | 2016-04-06 06:34 | PHACANCOPD ---
PHARMACY VANCOMYCIN DOSING Pt Demographics Demographics Patient Age:80 , Weight: , Gender: female Adjusted Body Weight Date: 04/06/16, Adjusted Body Weight: Kg Events Past 24 Hours Events Past 24 Hours: NO: Change in CrCl, Dialysis, Diuretic Therapy, Elevation in WBC, Fever, Other, Pending Diagnostics, Pending Procedures Vancomycin Vancomycin Target Ranges: 15-20 mcg/ml Vancomycin Load Y/N: No Load Dose Date Time Vancomycin Load Dose: Date: Time: Vancomycin Dose Date: 04/06/16. Current Vancomycin Dose: [750MG Q24H] Intermittent Dosing?: No Labs Labs Item Value Date Time White Blood Count 12.4 K/mm3 H 04/06/16 0215 Creatinine 0.81 MG/DL 04/06/16 0215 Micro Microbiology 04/06/16 Blood Culture, Received Pending 04/06/16 Blood Culture, Received Pending Creatinine Clearance Date:04/06/16. Creatinine Clearance: [36]. Pending Labs Trough 01-11 @0500 Assessment and Plan Maintaining Current Dose?: Yes Reason for dose change: No Dose Change Pharmacist Note Pharmacist Note Date: 04/06/16. Pharmacist note:Dosed at 750mg q24h with a trough ordered for 01- 11 @0500. Will continue to monitor and make adjustments as needed. [facility] Apr 06, 2016 06:34
--- NOTE | 2016-04-06 07:11 | HPE ---
DATE OF ADMISSION: 04/06/2016 PRIMARY CARE PROVIDER: Dr. Mcguire MECHANICAL DESIGNER: Dr. Lua NEUROLOGIST: Dr. Majano HISTORY OF PRESENT ILLNESS: Patient is an 80-year-old female with a past medical history significant for chronic obstructive pulmonary disease (COPD), diastolic congestive heart failure, history of bilateral pleural effusion, pulmonary hypertension, tachybrady syndrome, atrial fibrillation with rapid ventricular response (RVR), history of CVA, focal seizure, gastroesophageal reflux disease, macular degeneration, hypertension, hypothyroidism, presented to [facility] on 04/06/2016 for acute worsening of shortness of breath. Patient was recently hospitalized on 03/15/2016 through 04/01/2016 for acute respiratory distress, required mechanical ventilator. Initially, patient was transferred from [facility] to [facility] intensive care unit (ICU) for unresponsiveness. Patient was subsequently intubated for respiratory distress and patient was on pressor for her severe hypotension. When patient arrived in emergency room on 04/06/2016, patient was found to have severe respiratory distress. Patient was initially placed on 100% nonrebreather to maintain oxygen saturation, later was titrated down to 40%. Patient has remained tachypneic. Patient has persistent tachycardia with heart rate running between 120-130. The lowest blood pressure was 95/66. Two dose of Solu-Medrol nebulizer was given. Patient was given diltiazem IV times two to control the heart rate. Then, the hospitalist team was called for admission. Given admission encounter, patient has difficulty maintaining prolonged alertness and awakeness to answer questions and patient has severe physical distress. Require nonrebreather. Significant amount of information were obtained from the previous hospitalization record. ALLERGIES/ADVERSE EFFECT: PREDNISONE (rash). HOME MEDICATION: - Cefdinir 300 mg by mouth twice a day - dexamethasone taper - Cardizem CD 350 mg by mouth daily - Lasix 20 mg by mouth twice a day - Synthroid 0.025 mg by mouth daily - Senna Plus two tablets by mouth twice a day - Coumadin 4 mg by mouth daily - Xanax 0.5 mg by mouth as needed - aspirin 81 mg by mouth daily - Lipitor 80 mg by mouth daily - citalopram 20 mg by mouth daily - Colace 100 mg by mouth daily as needed - Protonix 40 mg by mouth daily - theophylline 300 mg by mouth daily PAST MEDICAL HISTORY: 1. COPD. 2. Diastolic congestive heart failure. 3. Bilateral pleural effusions. 4. Pulmonary hypertension. 6. Tachybrady syndrome. 7. Atrial fibrillation with RVR. 8. History of CVA. 9. History of focal seizure. 10. Gastroesophageal reflux disease. 11. Macular degeneration. 12. Hypertension. 13. Hypothyroidism. 14. History of Staphylococcus aureus and pneumonia. 15. History of uterine cancer. 16. Temporal arteritis. 17. Anxiety/depression. 18. Osteoporosis. PAST SURGICAL HISTORY: 1. Angioplasty. 2. Hysterectomy. 3. Appendectomy. 4. Right wrist fracture repair. 5. Bilateral cataract surgery. 6. Inner ear surgery. 7. Hip fracture repair in 2015. SOCIAL HISTORY: Patient is FULL CODE. Patient is a former smoker. No alcohol use. REVIEW OF SYSTEMS: Unable to obtain due to patient's mental status. OBJECTIVE: VITAL SIGNS: Initially in the emergency room, patient had blood pressure of 95/66, pulse of 148, respiration rate greater 30, temperature is 98.2, pulse oximetry is 100% with 100% nonrebreather. Body weight is 42.2 kg. Body height is 157.8 cm. At the time of the admission encounter, patient has a blood pressure of 121/58, pulse is 115, respiration rate greater than 30. Oxygen saturation is 91% with 40% nonrebreather. GENERAL: Moderate distress secondary to respiratory distress. Patient has difficulty maintaining alertness and awakeness. Patient is not fully oriented. HEENT: Positive jugular venous distention (JVD). Otherwise, normocephalic, atraumatic. CARDIOVASCULAR: Rate distant. Heart sounds are irregularly irregular, tachycardic with a heart rate running between 110-120. RESPIRATORY: Bilateral crackles. No significant wheezes can be appreciated. Significant accessory muscle use. ABDOMEN: Soft, nontender, nondistended. Bowel sounds present. MUSCULOSKELETAL: 2+ pedal edema bilaterally. No cyanosis. LABORATORY DATA: WBC of 12.4, hemoglobin 7.8, hematocrit 24.5, platelet count is 172. Sodium 142, potassium 3.2, chloride is 100, carbon dioxide 31, BUN 40, creatinine 0.81, GFR greater than 60, fasting glucose 129, calcium 7.7, total CK is 45. Tropin I is 0.08 times two sets. BNP is 370. PT is 46.5, INR is 5.03. ABG show pH of 7.437, pCO2 is 49.1, pO2 is 96.5. HDL3 is 32.4. Microbiology: Blood culture is pending. CT of the chest without contrast show significant decrease in bilateral pleural effusions. Significant increase in bilateral multifocal and multilobar ground-glass density of the lung. Multifocal pulmonary edema versus superimposed pneumonia. EKG show atrial fibrillation. Diffuse ST-T wave abnormalities. ST-T wave abnormality observed on the previous admission, on 03/22/2016. ASSESSMENT AND PLAN: 1. Acute respiratory failure. Patient will be on the progressive care unit (PCU) under inpatient status. Currently, patient is still requiring nonrebreather 40% FiO2. Patient will be on vancomycin and cefepime due to elevation of white blood cell (WBC), neutrophil predominant. Patient had a recent hospitalization and significant increase of ground-glass appearance of both bilateral lung field on the CT, which will empirically treat for possible hospital-acquired pneumonia versus aspiration pneumonia. Patient's respiratory distress also complicated by the decompensated diastolic congestive heart failure. Patient will be on the Lasix. Will monitor patient's input and output. 2. Chronic obstructive pulmonary disease. Currently, patient does not have any significant wheezes. Patient will have a nebulizer treatment as needed. 3. Acute on chronic diastolic congestive heart failure. On Lasix diuresis. 4. Atrial fibrillation with rapid ventricular response. Patient just received two dose of IV diltiazem. We will monitor patient on cardiac telemetry. Patient previous was anticoagulated with warfarin. Currently, patient has supratherapeutic international normalized ratio (INR). Warfarin will be on hold. We will give her one small dose of vitamin K. 5. History of bilateral pleural effusion. Improved when compared to last two CT imaging. 6. History of pulmonary hypertension. On diuretic. 7. History of tachybrady syndrome. 8. History of CVA. On aspirin. 9. History of focal seizure. 10. Gastroesophageal reflux disease. On Protonix. 11. Macular degeneration. 12. Hypertension. 13. Hypothyroidism. On Synthroid. 14. History of Staphylococcus aureus pneumonia. Patient will be on vancomycin. 15. Deep venous thrombosis (DVT) prophylaxis. Currently, patient has supratherapeutic INR with INR of 5.
[2016-04-06] MEDS: FORMOTEROL FUMARATE 20 MCG/2 ML INHALATION SOLUTION (PERFOROMIST) INH SCH ×2 (08:00→20:00)
[2016-04-06] MEDS: IPRATROPIUM 0.5MG/ALBUTEROL 2.5MG INH SOL UD 3ML (DUONEB)(J7620) NEB SCH ×3 (08:00→21:04)
--- NOTE | 2016-04-06 08:16 | REP ---
AP portable sitting chest radiograph 04/06/2016 Indication: Shortness of breath Comparison: PA and lateral chest 03/31/2016, 03/26/2016, CT chest 03/22/2016 Cardiac silhouette is not enlarged. There is mild aneurysmal dilatation of the descending thoracic aorta. There are small bilateral pleural effusion is increased from 03/31/2016. Diffuse interstitial infiltrates are now identified consistent with upper lobe predominance. These findings are consistent with interstitial pulmonary edema. There are some compressive atelectatic changes in lung bases; there is also left perihilar atelectasis versus minimal infiltrate. The bones are grossly normal in appearance Impression 1. Underlying COPD with interstitial pulmonary edema and small bilateral pleural effusions representing interval change 2. Bibasilar atelectatic changes; and left parahilar atelectatic changes vs minimal infiltrate, representing interval change 3. 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
[2016-04-06] MEDS ORDERED: ASPIRIN 81 MG ENTERIC TAB PO SCH (09:00)
--- NOTE | 2016-04-06 09:28 | ECGEPIP ---
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
--- NOTE | 2016-04-06 09:28 | ECGEPIP ---
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
[2016-04-06] MEDS ORDERED: SENN8.6T54 PO (10:12)
[2016-04-06] MEDS ORDERED: FURO20TA2 PO (10:12)
[2016-04-06] MEDS ORDERED: CARD360C PO (10:12)
[2016-04-06] MEDS ORDERED: CEFD1CAP8 PO (10:12)
[2016-04-06] MEDS ORDERED: SPIR1CAP INH (10:15)
[2016-04-06] MEDS ORDERED: ATOR1TAB18 PO (10:15)
[2016-04-06] MEDS ORDERED: THEO30TASA PO (10:15)
[2016-04-06] MEDS ORDERED: CITA20TA4 PO (10:15)
[2016-04-06] MEDS ORDERED: COUM1TAB14 PO (10:15)
[2016-04-06] MEDS ORDERED: COUM2TAB10 PO (10:15)
[2016-04-06] MEDS ORDERED: BROV15NE INH (10:15)
[2016-04-06] MEDS ORDERED: PANT40TA2 PO (10:22)
[2016-04-06] MEDS ORDERED: ASPI1TAB PO (10:22)
[2016-04-06] MEDS ORDERED: ICAPCAP PO (10:22)
[2016-04-06] MEDS ORDERED: ZOFR4TAB3 PO (10:22)
[2016-04-06] MEDS ORDERED: LEVO25TA5 PO (10:22)
[2016-04-06] MEDS ORDERED: IPRAINH INH (10:22)
[2016-04-06] MEDS ORDERED: ALPR0.25 PO (10:22)
[2016-04-06] MEDS ORDERED: PROA1AER INH (10:22)
[2016-04-06] MEDS ORDERED: DIGOXIN INJ 0.5 MG/2 ML AMP (J1160) IV ONE (10:30)
[2016-04-06] MEDS ORDERED: DIGOXIN INJ 0.5 MG/2 ML AMP (J1160) As Ordered ONE (10:43)
[2016-04-06] MEDS ORDERED: CEFEPIME INJ 2 GM VIAL (MAXIPIME) (J0692) As Ordered ONE (10:44)
[2016-04-06] MEDS: CEFEPIME HCL 2 GM in D5W MINI-BAG PLUS 50 ML IV SCH (11:03)
[2016-04-06] MEDS: CitaloPRAM (CeleXA) 20 MG TAB PO SCH (12:31)
[2016-04-06] MEDS: TIOTROPIUM INHALER/CAPSULE (SPIRIVA) INH SCH (12:58)
[2016-04-06] MEDS: FUROSEMIDE 40 MG/4 ML VIAL (J1940) IV SCH ×2 (14:16→21:54)
--- NOTE | 2016-04-06 20:42 | EDDOCDS ---
Physician Documentation [facility] Name: Maria Guadalupe Roque Age: 80 yrs Sex: Female : 1935 Arrival Date: 04/06/2016 Time: 01:21 Bed Admit Hold Private MD: Disposition: 04/06/16 05:15 Hospitalization ordered by Willa Mukherjee for Inpatient Admission. Preliminary diagnosis is Acute diastolic (congestive) heart failure. - Bed requested for PCU. - Status is Inpatient Admission. sls1 - Condition is Stable. - Problem is an acute exacerbation. - Symptoms have improved. Historical: - Allergies: Prednisone; - Home Meds: 1. diltiazem HCl 360 mg Oral cp24 1 cap once daily 2. furosemide 20 mg Oral tab 1 tab 2 times per day 3. levothyroxine 25 mcg oral tab 1 tab once daily 4. Senokot 8.6 mg Oral tab twice a day 5. Coumadin 4 mg Oral tab once daily 6. Xanax 0.5 mg Oral tab 1 tab as needed 7. aspirin 81 mg Oral tab once daily 8. Lipitor 80 mg Oral tab 1 tab once daily 9. citalopram 20 mg Oral tab 1 tab once daily 10. Colace 100 mg oral cap 1 cap as needed 11. Vision Formula oral tab 120 mL daily 12. Protonix 40 mg Oral TbEC 1 tab once daily 13. theophylline 300 mg Oral cp24 1 cap once daily 14. Brovana 15 mcg/2 mL inhalation nebu 2 times per day 15. albuterol sulfate 2.5 mg /3 mL (0.083 %) Inhl nebu 3 mL as needed every 4 hours 16. DuoNeb 0.5 mg-3 mg(2.5 mg base)/3 mL Inhl nebu every 8 hours - PMHx: Atrial Fib; COPD; CVA; GERD; Hypertension; PVD; - PSHx: Angioplasty; - Social history: Smoking status: Patient states former smoker of tobacco. No barriers to communication noted, The patient speaks fluent Urdu, Speaks appropriately for age. - : The pt / caregiver states he / she is on anticoagulants: coumadin. Home medication list is obtained from the patient. - Exposure Risk Screening:: None identified. Vital Signs: 04/06 01:34 BP 156 / 66; Pulse 95; Resp 30; Temp 98.2(TE); Pulse Ox 70% on R/A; Weight 42.2 kg / jmv 93.04 lbs (M); Height 5 ft. 2 in. (157.48 cm) (R); Pain 0/10; 01:35 Pulse 117 MON; Pulse Ox 93% ; ko2 01:43 Pulse Ox 100% on 100% Non-rebreather mask; jmv 02:29 Pulse 148 MON; Pulse Ox 94% ; ko2 02:30 BP 99 / 61 (auto/); ko2 02:44 Pulse 136 MON; Pulse Ox 94% ; ko2 02:45 BP 104 / 55 (auto/); ko2 03:00 BP 88 / 54 (auto/); ko2 03:00 Pulse 142 MON; Pulse Ox 93% ; ko2 03:14 BP 95 / 66 (auto/); ko2 03:14 Pulse 140 MON; Pulse Ox 89% ; ko2 03:15 BP 102 / 77 (auto/); ko2 03:15 Pulse 132 MON; Pulse Ox 91% ; ko2 03:29 Pulse 121 MON; Pulse Ox 90% ; ko2 03:30 BP 112 / 57 (auto/); ko2 03:45 BP 128 / 56 (auto/); ko2 03:45 Pulse 131 MON; Pulse Ox 93% ; ko2 03:59 Pulse 128 MON; Pulse Ox 92% ; ko2 04:00 BP 101 / 57 (auto/); ko2 04:15 BP 101 / 50 (auto/); ko2 04:15 Pulse 111 MON; Pulse Ox 90% ; ko2 04:29 Pulse 115 MON; Pulse Ox 91% ; ko2 04:30 BP 121 / 58 (auto/); ko2 04:45 BP 126 / 57 (auto/); ko2 04:45 Pulse 112 MON; Pulse Ox 90% ; ko2 05:00 BP 127 / 56 (auto/); ko2 05:00 Pulse 118 MON; Pulse Ox 91% ; ko2 05:14 Pulse 114 MON; Pulse Ox 91% ; ko2 05:15 BP 100 / 58 (auto/); ko2 05:29 Pulse 118 MON; Pulse Ox 89% ; ko2 05:30 BP 103 / 65 (auto/); ko2 05:45 BP 113 / 60 (auto/); ko2 05:45 Pulse 117 MON; Resp 22; Pulse Ox 91% ; ko2 06:29 Pulse 110 MON; Pulse Ox 93% ; hs1 06:30 BP 106 / 55 (auto/); hs1 06:44 Pulse 121 MON; Pulse Ox 93% ; hs1 06:45 BP 127 / 63 (auto/); hs1 07:00 BP 116 / 56 (auto/); hs1 07:00 Pulse 112 MON; Pulse Ox 95% ; hs1 07:15 BP 93 / 62 (auto/); hs1 07:15 Pulse 108 MON; Pulse Ox 96% ; hs1 07:30 BP 93 / 58 (auto/); hs1 07:30 Pulse 105 MON; Pulse Ox 95% ; hs1 07:45 BP 102 / 57 (auto/); hs1 07:45 Pulse 102 MON; Pulse Ox 94% ; hs1 08:00 BP 117 / 56 (auto/); hs1 08:00 Pulse 101 MON; Pulse Ox 96% ; hs1 08:15 BP 122 / 56 (auto/); hs1 08:15 Pulse 103 MON; Pulse Ox 96% ; hs1 08:30 BP 105 / 51 (auto/); hs1 08:30 Pulse 101 MON; Resp 20; Temp 98.5(TE); Pulse Ox 96% on 40% Venturi mask; hs1 01:34 Body Mass Index 17.02 (42.20 kg, 157.48 cm) jmv 01:34 RN notified about O2 jmv MDM: 01:42 Solu-MEDROL 125 mg IVP once ordered. mm11 01:42 -Blood Culture (Adults Only), peripheral from different site, or from device/port/PICC mm11 etc. if present ordered. 01:42 Table Maker/Pulse Ox/q 15 min VS ordered. mm11 01:43 IV Saline Lock ordered. mm11 01:43 Oxygen at 4L/Min NC or Home dosage ordered. mm11 01:43 Rhythm Strip to chart ordered. mm11 01:43 Albuterol-Ipratropium 1 neb Nebulizer every 20 minutes x3 ordered. mm11 01:44 -Arterial Blood Gas Ordered. EDMS 01:44 -Blood Culture Ordered. EDMS 01:44 B-Type Natiuretic Peptide Ordered. EDMS 01:44 Basic Metabolic Profile Ordered. EDMS 01:44 CBC with Diff Ordered. EDMS 01:44 Cardiac Injury Profile Ordered. EDMS 01:44 Troponin Ordered. EDMS 01:44 Chest, 1 View Ordered. EDMS 01:44 ECG WITH READING ER PHYS+CARDIAG ordered. EDMS 01:45 -Blood Culture (Adults Only), peripheral from different site, or from device/port/PICC ml3 etc. if present complete. 01:45 BLOOD CULTURES Ordered. EDMS 02:01 Pt & Aptt Ordered. EDMS 02:10 Sputum Culture & Gram Stain Ordered. EDMS 02:16 Financial registration complete. [facility] 02:19 [facility] Payment Agreement was scanned into [employer] and attached to record. [facility] 02:31 -Arterial Blood Gas Reviewed. mm11 02:49 B-Type Natiuretic Peptide Reviewed. mm11 02:49 CBC with Diff Reviewed. mm11 03:01 Basic Metabolic Profile Reviewed. mm11 03:01 Cardiac Injury Profile Reviewed. mm11 03:01 Troponin Reviewed. mm11 03:08 Redraw CIP &Troponin (put time in details section) ordered. mm11 03:08 Repeat EKG (put time details section) ordered. mm11 03:13 Diltiazem 10 mg IVP once; administer over 2 minutes ordered. mm11 03:16 CT Chest Without Contrast Ordered. EDMS 03:21 Repeat EKG (put time details section) complete. ml3 03:21 Redraw CIP &Troponin (put time in details section) complete. ml3 03:22 ECG WITH READING ER PHYS ordered. EDMS 03:22 CARDIAC MARKER PANEL Ordered. EDMS 03:46 Diltiazem 15 mg IVP once; administer over 2 minutes ordered. mm11 04:35 Pt & Aptt Reviewed. mm11 04:49 CARDIAC MARKER PANEL Reviewed. mm11 05:01 [place] ordered. mm11 05:01 Furosemide 40 mg IVP once ordered. mm11 05:02 BED REQUEST+ADM ordered. EDMS 05:39 Admission / Observation Status ordered. EDMS 05:39 2 GRAM SODIUM DIET ordered. EDMS 05:45 C REACTIVE PROTEIN QUANTITATIV Ordered. EDMS 05:45 LACTIC ACID LEVEL, LACTATE Ordered. EDMS 10:21 SPUTUM CULTURE AND GRAM STAIN Ordered. EDMS 13:03 T-Sheet-- Draft Copy was scanned into [employer] and attached to record. gb 13:03 Radiology Report was scanned into [employer] and attached to record. gb 19:31 COMPLETE BLOOD COUNT Ordered. EDMS 19:31 BASIC METABOLIC PROFILE Ordered. EDMS Administered Medications: 02:05 Drug: Albuterol-Ipratropium 1 neb [ipratropium-albuterol 0.5 mg-3 mg(2.5 mg base)/3 mL lf2 nebulization soln (1 neb)] Route: Nebulizer; 02:13 Drug: Albuterol-Ipratropium 1 neb [ipratropium-albuterol 0.5 mg-3 mg(2.5 mg base)/3 mL lf2 nebulization soln (1 neb)] Route: Nebulizer; 02:15 Drug: Solu-MEDROL 125 mg [Solu-Medrol 500 mg intravenous solution (125 mg)] Route: IVP; ko2 Site: left upper arm; 03:16 Drug: Diltiazem 10 mg [diltiazem 5 mg/mL intravenous solution (2 mL)] Route: IVP; Site: ko2 left upper arm; 04:11 Drug: Diltiazem 15 mg [diltiazem 5 mg/mL intravenous solution (3 mL)] Route: IVP; Site: ko2 left upper arm; 05:56 Drug: Furosemide 40 mg [furosemide 10 mg/mL injection solution (4 mL)] Route: IVP; ko2 Site: left upper arm; Signatures: Dispatcher [employer] EDMS Jennifer Wood, Reg Reg gb Eric SusanSowmyaKrystina, Fire Prevention Officer Unit ml3 Toro Milan, DO mm11 Leidy Hernandez RN RN sls1 Mary Woods RN RN ko2 Sofy Aguilar [facility] David Capps RN RN mts [place], Lisa lf2 The chart was reviewed and I authenticate all verbal orders and agree with the evaluation and treatment provided.Attachments: 02:19 [facility] Payment Agreement [facility] 13:03 T-Sheet-- Draft Copy gb MTDD
--- NOTE | 2016-04-06 20:43 | EDDOCDS ---
Nurse's Notes [facility] Name: Raquel Ramirez Age: 80 yrs Sex: Female : 1935 Arrival Date: 04/06/2016 Time: 01:21 Bed Admit Hold Private MD: Diagnosis: Acute diastolic (congestive) heart failure Presentation: 04/06 01:26 Presenting complaint: EMS states: shortness of breath started about an hour ago. pt has ko2 a history of emphysema and COPD. Pt coughing. Pt took 1 atrovent and a breath air inhaler. Suicide/Homicide risk assessment- the patient denies having any suicidal and/or homicidal ideations and does not present with any other emotional, behavioral or mental health complaints. Status: Patient is not a service center representative or dependent. Transition of care: patient was not received from another setting of care. Care prior to arrival: See EMS report. Medications administered prior to arrival: Nebulized Albuterol. 01:26 Acuity: OLVIN Level 3 ko2 01:26 Method Of Arrival: Ambulance ko2 Triage Assessment: 01:31 General: Appears distressed, Behavior is cooperative. Neurological: Level of ko2 Consciousness is awake, alert, lethargic. 01:34 Cardiovascular: Rhythm is atrial fibrillation. Respiratory: Onset: The symptoms/episode ko2 began/occurred just prior to arrival, Airway is patent Respiratory effort is labored, Breath sounds are coarse bilaterally. Breath sounds are diminished bilaterally. Breath sounds with wheezes expiratory in left upper lobe and left lower lobe. GI: Abdomen is non- distended Bowel sounds present X 4 quads. Derm: Skin is pale. Musculoskeletal: Range of motion intact in all extremities. Historical: - Allergies: Prednisone; - Home Meds: 1. diltiazem HCl 360 mg Oral cp24 1 cap once daily 2. furosemide 20 mg Oral tab 1 tab 2 times per day 3. levothyroxine 25 mcg oral tab 1 tab once daily 4. Senokot 8.6 mg Oral tab twice a day 5. Coumadin 4 mg Oral tab once daily 6. Xanax 0.5 mg Oral tab 1 tab as needed 7. aspirin 81 mg Oral tab once daily 8. Lipitor 80 mg Oral tab 1 tab once daily 9. citalopram 20 mg Oral tab 1 tab once daily 10. Colace 100 mg oral cap 1 cap as needed 11. Vision Formula oral tab 120 mL daily 12. Protonix 40 mg Oral TbEC 1 tab once daily 13. theophylline 300 mg Oral cp24 1 cap once daily 14. Brovana 15 mcg/2 mL inhalation nebu 2 times per day 15. albuterol sulfate 2.5 mg /3 mL (0.083 %) Inhl nebu 3 mL as needed every 4 hours 16. DuoNeb 0.5 mg-3 mg(2.5 mg base)/3 mL Inhl nebu every 8 hours - PMHx: Atrial Fib; COPD; CVA; GERD; Hypertension; PVD; - PSHx: Angioplasty; - Social history: Smoking status: Patient states former smoker of tobacco. No barriers to communication noted, The patient speaks fluent Ethiopian, Speaks appropriately for age. - : The pt / caregiver states he / she is on anticoagulants: coumadin. Home medication list is obtained from the patient. - Exposure Risk Screening:: None identified. Assessment: 01:48 General: see triage assessment. ko2 02:44 General: Appears in no apparent distress, Behavior is appropriate for age. Pain: Denies ko2 pain. Neurological: Level of Consciousness is awake, alert. Cardiovascular: Rhythm is atrial fibrillation with rapid ventricular response Chest pain is denied. Respiratory: Airway is patent. Derm: Skin is pale. 04:00 General: Appears in no apparent distress, Behavior is appropriate for age. Pain: Denies ko2 pain. Neurological: Level of Consciousness is awake, alert. Cardiovascular: Rhythm is atrial fibrillation. Respiratory: Airway is patent Respiratory effort is even. Derm: Skin is pale. 05:05 General: Appears in no apparent distress, Behavior is appropriate for age. Pain: Denies ko2 pain. Neurological: Level of Consciousness is awake, alert. Cardiovascular: Rhythm is atrial fibrillation Chest pain is denied. Respiratory: Airway is patent Respiratory effort is even. Derm: Skin is pale. 07:15 General: Appears in no apparent distress, Pt appears resting with no needs. Pt hs1 knowledgeable of admission. Patient on venti mask and is currently receiving vancomycin through 20 gauge in left AC. . Cardiovascular: Rhythm is atrial fibrillation. 08:37 General: Appears in no apparent distress, Behavior is appropriate for age. Pain: Denies hs1 pain. Neurological: Level of Consciousness is awake, alert, obeys commands. Cardiovascular: Rhythm is atrial fibrillation. Respiratory: Airway is patent Respiratory effort is even. : Franklin in place to gravity drainage Urine is clear. Derm: Skin is pale. Vital Signs: 01:34 BP 156 / 66; Pulse 95; Resp 30; Temp 98.2(TE); Pulse Ox 70% on R/A; Weight 42.2 kg (M); jmv Height 5 ft. 2 in. (157.48 cm) (R); Pain 0/10; 01:35 Pulse 117 MON; Pulse Ox 93% ; ko2 01:43 Pulse Ox 100% on 100% Non-rebreather mask; jmv 02:29 Pulse 148 MON; Pulse Ox 94% ; ko2 02:30 BP 99 / 61 (auto/); ko2 02:44 Pulse 136 MON; Pulse Ox 94% ; ko2 02:45 BP 104 / 55 (auto/); ko2 03:00 BP 88 / 54 (auto/); ko2 03:00 Pulse 142 MON; Pulse Ox 93% ; ko2 03:14 BP 95 / 66 (auto/); ko2 03:14 Pulse 140 MON; Pulse Ox 89% ; ko2 03:15 BP 102 / 77 (auto/); ko2 03:15 Pulse 132 MON; Pulse Ox 91% ; ko2 03:29 Pulse 121 MON; Pulse Ox 90% ; ko2 03:30 BP 112 / 57 (auto/); ko2 03:45 BP 128 / 56 (auto/); ko2 03:45 Pulse 131 MON; Pulse Ox 93% ; ko2 03:59 Pulse 128 MON; Pulse Ox 92% ; ko2 04:00 BP 101 / 57 (auto/); ko2 04:15 BP 101 / 50 (auto/); ko2 04:15 Pulse 111 MON; Pulse Ox 90% ; ko2 04:29 Pulse 115 MON; Pulse Ox 91% ; ko2 04:30 BP 121 / 58 (auto/); ko2 04:45 BP 126 / 57 (auto/); ko2 04:45 Pulse 112 MON; Pulse Ox 90% ; ko2 05:00 BP 127 / 56 (auto/); ko2 05:00 Pulse 118 MON; Pulse Ox 91% ; ko2 05:14 Pulse 114 MON; Pulse Ox 91% ; ko2 05:15 BP 100 / 58 (auto/); ko2 05:29 Pulse 118 MON; Pulse Ox 89% ; ko2 05:30 BP 103 / 65 (auto/); ko2 05:45 BP 113 / 60 (auto/); ko2 05:45 Pulse 117 MON; Resp 22; Pulse Ox 91% ; ko2 06:29 Pulse 110 MON; Pulse Ox 93% ; hs1 06:30 BP 106 / 55 (auto/); hs1 06:44 Pulse 121 MON; Pulse Ox 93% ; hs1 06:45 BP 127 / 63 (auto/); hs1 07:00 BP 116 / 56 (auto/); hs1 07:00 Pulse 112 MON; Pulse Ox 95% ; hs1 07:15 BP 93 / 62 (auto/); hs1 07:15 Pulse 108 MON; Pulse Ox 96% ; hs1 07:30 BP 93 / 58 (auto/); hs1 07:30 Pulse 105 MON; Pulse Ox 95% ; hs1 07:45 BP 102 / 57 (auto/); hs1 07:45 Pulse 102 MON; Pulse Ox 94% ; hs1 08:00 BP 117 / 56 (auto/); hs1 08:00 Pulse 101 MON; Pulse Ox 96% ; hs1 08:15 BP 122 / 56 (auto/); hs1 08:15 Pulse 103 MON; Pulse Ox 96% ; hs1 08:30 BP 105 / 51 (auto/); hs1 08:30 Pulse 101 MON; Resp 20; Temp 98.5(TE); Pulse Ox 96% on 40% Venturi mask; hs1 01:34 Body Mass Index 17.02 (42.20 kg, 157.48 cm) jmv 01:34 RN notified about O2 [facility] Vitals: 04:29 Log In Time N/A - ambulance arrival. ko2 ED Course: 01:22 Patient visited by Celio Reyes, Injection Molding Machine Tender. ml3 01:22 Mary Woods,RN is Primary Nurse. ml3 01:22 Patient moved to Waiting ml3 01:22 Patient moved to 2 ml3 01:29 Triage Initiated ko2 01:36 Orlando Milan DO is Attending Physician. mm11 01:36 Patient visited by Orlando Milan DO. mm11 01:41 Patient visited by Orlando Milan DO. mm11 01:43 Pt greeted and oriented to ED. Patient advised of names of staff involved in care, jmv location of call prabhakar, wait times and NPO status. Accompanied by Family Member, Patient has correct armband on for positive identification. Placed in gown. Bed in low position. Call light in reach. Side rails up X2. laboratory monitor on. Pulse ox on. NIBP on. 01:44 Patient visited by Venu Brown PCA. jmv 01:51 EKG done. (by ED staff). Reviewed by Orlando Milan DO. jmv 01:52 Patient visited by Venu Brown PCA. jmv 02:06 -Arterial Blood Gas Sent. kjn 02:19 [facility] [place] was scanned into Gild and attached to record. [facility] 02:19 Inserted saline lock: 20 gauge in left antecubital area and blood collected. [facility] [place] patient tolerated the procedure well. 02:39 BLOOD CULTURES Sent. cln 02:44 Patient visited by Mary Woods RN. ko2 03:15 Patient visited by Orlando Milan DO. mm11 03:15 The patient / caregiver is instructed regarding the plan of care and ED course. ko2 Notified attending ED physician of Critical lab value. Dr Milan informed on INR of 5.03. 04:03 Patient visited by Kat Mata PCA. dacia 04:03 EKG done. (by ED staff). Reviewed by Orlando Milan DO. dacia 04:39 Patient visited by Mary Woods RN. ko2 05:14 Patient visited by Orlando Milan DO. mm11 05:14 Willa Mukherjee is Hospitalizing Provider. mm11 05:28 CT Chest Without Contrast Returned. EDMS 05:49 Franklin cath inserted 16 Fr. Balloon inflated. To gravity drainage. returned clear yellow ko2 urine. Patient tolerated well. 06:15 Patient moved to Admit Hold ml3 07:22 Primary Nurse role handed off by Mary Woods RN deg 08:36 Patient moved to 19 kcs 08:38 Chest, 1 View Returned. EDMS 09:45 EKG-ADULT Returned. EDMS 09:45 ECG WITH READING ER PHYS Returned. EDMS 13:03 T-Sheet-- Draft Copy was scanned into Gild and attached to record. gb 13:03 Radiology Report was scanned into [employer] and attached to record. gb 15:06 Patient moved to Admit Hold kcs Administered Medications: 02:05 Drug: Albuterol-Ipratropium 1 neb [ipratropium-albuterol 0.5 mg-3 mg(2.5 mg base)/3 mL lf2 nebulization soln (1 neb)] Route: Nebulizer; 02:13 Drug: Albuterol-Ipratropium 1 neb [ipratropium-albuterol 0.5 mg-3 mg(2.5 mg base)/3 mL lf2 nebulization soln (1 neb)] Route: Nebulizer; 02:15 Drug: Solu-MEDROL 125 mg [Solu-Medrol 500 mg intravenous solution (125 mg)] Route: IVP; ko2 Site: left upper arm; 03:16 Drug: Diltiazem 10 mg [diltiazem 5 mg/mL intravenous solution (2 mL)] Route: IVP; Site: ko2 left upper arm; 04:11 Drug: Diltiazem 15 mg [diltiazem 5 mg/mL intravenous solution (3 mL)] Route: IVP; Site: ko2 left upper arm; 05:56 Drug: Furosemide 40 mg [furosemide 10 mg/mL injection solution (4 mL)] Route: IVP; ko2 Site: left upper arm; Output: 05:50 Urine: 475.00ml (Franklin); Total: 475.00ml. ko2 RT: 02:05 Initial Med Neb Given as ordered Patient was instructed and evaluated on procedure lf2 Patient tolerated procedure well without adverse effect. O2 via Venturi mask \T\ 12L/min - 40%. Respiratory: Respiratory effort is even, labored, Use of accessory muscles noted. Respiratory pattern is regular tachypnea Sputum is thick brown Breath sounds are coarse bilaterally. Breath sounds with rhonchi bilaterally. Breath sounds are diminished bilaterally. Breath sounds with wheezes bilaterally. at expiration. 02:07 ABG's drawn from right radial artery allens test done and positive pressure held for 5 kjn minutes no bleeding noted pressure bandage applied specimen sent pt. tolerated well. 02:13 Subsequent Med Neb Given as ordered Patient tolerated procedure well without adverse lf2 effect. Respiratory: Breath sounds are coarse bilaterally. Breath sounds are diminished bilaterally. Breath sounds with wheezes bilaterally. at expiration. 15:45 Subsequent Med Neb Given as ordered Patient tolerated procedure well without adverse rs5 effect. Order Results: Lab Order: -Arterial Blood Gas; SPEC'04/06/16 02:02 Test: ABG pH (ARTERIAL); Value: 7.437; Range: 7.350-7.450; Units: UNITS; Status: F Test: ABG PARTIAL PRESSURE CO2; Value: 49.1; Range: 35.0-45.0; Abnormal: Above high normal; Units: mmHg; Status: F Test: ABG PARTIAL PRESSURE O2; Value: 96.5; Range: 75.0-100.0; Units: mmHg; Status: F Test: ABG TOTAL CO2; Value: 33.9; Range: 23.0-31.0; Abnormal: Above high normal; Units: MEQ/L; Status: F Test: ABG HCO3; Value: 32.4; Range: 22.0-26.0; Abnormal: Above high normal; Units: MEQ/L; Status: F Test: ABG BASE EXCESS; Value: 7.3; Range: -2.0-2.0; Abnormal: Above high normal; Status: F Test: ABG STANDARD HCO3; Value: 31.2; Range: 22.0-26.0; Abnormal: Above high normal; Units: MEQ/L; Status: F Test: ABG O2 SATURATION; Value: 97.2; Range: 95.0-99.0; Units: %; Status: F Test: ABG DEVICE; Value: NASAL SHEILA; Status: F Lab Order: B-Type Natiuretic Peptide; SPEC'04/06/16 02:15 Test: BRAIN NATRIURETIC PEPTIDE; Value: 370; Range: <100; Abnormal: Above high normal; Units: PG/ML; Status: F Lab Order: Basic Metabolic Profile; SPEC'04/06/16 02:15 Test: GLUCOSE, FASTING; Value: 129; Range: 83-110; Abnormal: Above high normal; Units: MG/DL; Status: F Test: BLOOD UREA NITROGEN; Value: 40; Range: 7-18; Abnormal: Above high normal; Units: MG/DL; Status: F Test: CREATININE FOR GFR; Value: 0.81; Range: 0.55-1.02; Units: MG/DL; Status: F Test: GLOMERULAR FILTRATION RATE; Value: > 60.0; Range: >32; Status: F Test: SODIUM LEVEL; Value: 143; Range: 136-145; Units: MEQ/L; Status: F Test: POTASSIUM SERUM; Value: 3.2; Range: 3.5-5.1; Abnormal: Below low normal; Units: MEQ/L; Status: F Test: CHLORIDE LEVEL; Value: 100; Range: 98-107; Units: MEQ/L; Status: F Test: CARBON DIOXIDE LEVEL; Value: 31; Range: 21-32; Units: MEQ/L; Status: F Test: ANION GAP; Value: 12; Range: 8-16; Units: MEQ/L; Status: F Test: CALCIUM LEVEL; Value: 7.7; Range: 8.8-10.2; Abnormal: Below low normal; Units: MG/DL; Status: F Test Note: ; Units are mL/min/1.73 m2 Chronic Kidney Disease Staging per NKF: Stage I & II GFR >=60 Normal to Mildly Decreased Stage III GFR 30-59 Moderately Decreased Stage IV GFR 15-29 Severely Decreased Stage V GFR <15 Very Little GFR Left ESRD GFR <15 on RABBET OPERATOR Lab Order: CBC with Diff; SPEC'M 04/06/16 02:15 Test: WHITE BLOOD COUNT; Value: 12.4; Range: 4.0-10.0; Abnormal: Above high normal; Units: K/mm3; Status: F Test: RED BLOOD COUNT; Value: 2.90; Range: 4.00-5.40; Abnormal: Below low normal; Units: M/mm3; Status: F Test: HEMOGLOBIN; Value: 7.8; Range: 12.0-16.0; Abnormal: Below low normal; Units: g/dl; Status: F Test: HEMATOCRIT; Value: 24.5; Range: 36.0-47.0; Abnormal: Below low normal; Units: %; Status: F Test: MEAN CORPUSCULAR VOLUME; Value: 84.6; Range: 80.0-96.0; Units: fl; Status: F Test: MEAN CORPUSCULAR HEMOGLOBIN; Value: 27.0; Range: 27.0-33.0; Units: pg; Status: F Test: MEAN CORPUSCULAR HGB CONC; Value: 31.9; Range: 32.0-36.5; Abnormal: Below low normal; Units: g/dl; Status: F Test: RED CELL DISTRIBUTION WIDTH; Value: 21.4; Range: 11.5-14.5; Abnormal: Above high normal; Units: %; Status: F Test: PLATELET COUNT, AUTOMATED; Value: 172; Range: 150-450; Units: k/mm3; Status: F Test: NEUTROPHILS %; Value: 94.7; Range: 36.0-66.0; Abnormal: Above high normal; Units: %; Status: F Test: LYMPH %; Value: 2.8; Range: 24.0-44.0; Abnormal: Below low normal; Units: %; Status: F Test: MONO %; Value: 1.7; Range: 0.0-5.0; Units: %; Status: F Test: EOS %; Value: 0.2; Range: 0.0-3.0; Units: %; Status: F Test: BASO %; Value: 0.0; Range: 0.0-1.0; Units: %; Status: F Test: LARGE UNSTAINED CELL %; Value: 0.5; Range: 0.0-4.0; Units: %; Status: F Test: NEUTROPHILS #; Value: 11.7; Range: 1.8-7.7; Abnormal: Above high normal; Units: K/mm3; Status: F Test: LYMPH #; Value: 0.3; Range: 1.5-4.5; Abnormal: Below low normal; Units: K/mm3; Status: F Test: MONO #; Value: 0.2; Range: 0.0-0.8; Units: K/mm3; Status: F Test: EOS #; Value: 0.0; Range: 0.0-0.50; Units: K/mm3; Status: F Test: BASO #; Value: 0.0; Range: 0.0-0.2; Units: K/mm3; Status: F Test: LARGE UNSTAINED CELL #; Value: 0.1; Range: 0.0-0.4; Units: K/mm3; Status: F Lab Order: Cardiac Injury Profile; SPEC'M 04/06/16 02:15 Test: CPK CREATINE PHOSPHOKINASE; Value: 45; Range: 26-192; Units: U/L; Status: F Test: CK-MB VALUE MASS; Value: 4.0; Range: 0.0-3.6; Abnormal: Above high normal; Units: NG/ML; Status: F Test: MB/CK RELATIVE INDEX; Value: 8.88; Range: < OR =4; Abnormal: Above high normal; Status: F Test Note: ; DIAGNOSIS CRITERIA MMB ng/ml Relative Index (RI) NON-AMI < or = 5 N/A MEYERS [place]ONE > 5 < or = 4 AMI > 5 > 4 Lab Order: Troponin; [facility] 04/06/16 02:15 Test: TROPONIN I; Value: 0.08; Range: < 0.10; Units: NG/ML; Status: F Test Note: ; Troponin I Reference Interval for [place] LOCI: 99th Percentile= 0.00-0.045 ng/ml Risk Stratification: <= 0.10 ng/ml Decreased Risk for Adverse Clinical Events. 0.10-1.50 ng/ml Increased Risk for Adverse Clinical Events. Evaluation of additional criterion and/or repeat testing in 2-6 hours is suggested to rule out myocardial damage. >= 1.50 ng/ml Indicative of Myocardial Injury. Lab Order: Pt & Aptt; [facility]04/06/16 02:15 Test: PROTHROMBIN TIME; Value: 46.5; Range: 12.3-14.5; Abnormal: Above high normal; Units: SECONDS; Status: F Test: INR; Value: 5.03; Abnormal: Above upper panic limits; Status: F Test: PARTIAL THROMBOPLASTIN TIME; Value: 73.6; Range: 26.6-37.1; Abnormal: Above high normal; Units: SECONDS; Status: F Test Note: ; THERAPUTIC HUMAN INR VALUES INDICATIONS NORMAL RANGES PROPHYLAXIS/TREATMENT OF: VENOUS THROMBOSIS 2.0-3.0 PULMONARY EMBOLISM 2.0-3.0 PREVENTION OF SYSTEMIC EMBOLISM FROM: TISSUE HEART VALVES 2.0-3.0 ACUTE MYOCARDIAL INFARCTION 2.0-3.0 VALVULAR HEART DISEASE 2.0-3.0 ATRIAL FIBRILLATION 2.0-3.0 MECHANICAL VALVES(HIGH RISK) 2.5-3.5 RECURRENT MYOCARDIAL INFARCTION 2.5-3.5 Lab Order: Sputum Culture & Gram Stain; [facility]04/06/16 10:20 Test: GRAM STAIN; Value: GRAM STAIN RESULT; Status: F Test: GRAM STAIN; Value: QUALITY: GOOD; Status: F Test: GRAM STAIN; Value: MANY WBCS; Status: F Test: GRAM STAIN; Value: FEW EPITHELIAL CELLS; Status: F Test: GRAM STAIN; Value: FEW GRAM POSITIVE COCCI; Status: F Test: GRAM STAIN; Value: FEW GRAM POSITIVE RODS; Status: F Lab Order: CARDIAC MARKER PANEL; SPEC'M 04/06/16 04:08 Test: CPK CREATINE PHOSPHOKINASE; Value: 47; Range: 26-192; Units: U/L; Status: F Test: CK-MB VALUE MASS; Value: 4.0; Range: 0.0-3.6; Abnormal: Above high normal; Units: NG/ML; Status: F Test: MB/CK RELATIVE INDEX; Value: 8.51; Range: < OR =4; Abnormal: Above high normal; Status: F Test: TROPONIN I; Value: 0.08; Range: < 0.10; Units: NG/ML; Status: F Test Note: ; DIAGNOSIS CRITERIA MMB ng/ml Relative Index (RI) NON-AMI < or = 5 N/A ME[place]ERS ZONE > 5 < or = 4 AMI > 5 > 4 Lab Order: C REACTIVE PROTEIN QUANTITATIV; SPEC'M 04/06/16 07:20 Test: C REACTIVE PROTEIN QUANTITATIV; Value: 11.30; Range: 0.00-0.30; Abnormal: Above high normal; Units: MG/DL; Status: F Lab Order: LACTIC ACID LEVEL, LACTATE; SPEC'M 04/06/16 07:20 Test: LACTIC ACID LEVEL, LACTATE; Value: 3.8; Range: 0.4-2.0; Abnormal: Above upper panic limits; Units: MMOL/L; Status: F Radiology Order: Chest, 1 View Test: Chest, 1 View REASON FOR EXAMINATION: Shortness of Breath; AP portable sitting chest radiograph 04/06/2016; ; Indication: Shortness of breath; ; Comparison: PA and lateral chest 03/31/2016, 03/26/2016, CT chest 03/22/2016; ; Cardiac silhouette is not enlarged. There is mild aneurysmal dilatation of the; descending thoracic aorta. There are small bilateral pleural effusion is; increased from 03/31/2016. Diffuse interstitial infiltrates are now identified; consistent with upper lobe predominance. These findings are consistent with; interstitial pulmonary edema. There are some compressive atelectatic changes in; lung bases; there is also left perihilar atelectasis versus minimal infiltrate.; ; The bones are grossly normal in appearance; ; Impression; 1. Underlying COPD with interstitial pulmonary edema and small bilateral pleural; effusions representing interval change; ; 2. Bibasilar atelectatic changes; and left parahilar atelectatic changes vs; minimal infiltrate, representing interval change; ; 3. 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; : 1935 Requested By: ORLANDO Amado; Order Number: [id number] Reading MD: Katalina Zarate; Measurements; Intervals [place]; Rate: 117 P:; VT: 0 QRS: 63; QRSD: 67 T: 265; QT: 255; QTc: 356; Interpretive Statements; ATRIAL FIBRILLATION WITH RAPID VENTRICULAR RESPONSE; ST DEVIATION AND MODERATE T-WAVE ABNORMALITY, CONSIDER LATERAL ISCHEMIA; ST DEVIATION AND MODERATE T-WAVE ABNORMALITY, CONSIDER INFERIOR ISCHEMIA; SIMILAR 03/21/16; Electronically Signed On 04-06-2016 9:27:53 EST by Katalina Zarate; Radiology Order: CT Chest Without Contrast Test: CT Chest Without Contrast REASON FOR EXAMINATION: PULMONARY EDEMA, R/O PNA; ; CLINICAL HISTORY: Pulmonary edema.; TECHNIQUE: Multiple axial CT images were obtained through chest without IV contrast material. 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 Thi; s is at the left of the descending aorta.; IMPRESSION:; Significant decrease in bilateral pleural effusions.; Significant increase in bilateral multifocal, multilobar groundglass densities of the lungs. 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 mm11 20:41 Patient left the ED. sls1 Signatures: Dispatcher [employer] EDMS Lorraine Hadley, RN RN Christine Quezada, Injection Molding Machine Tender Unit deg Jennifer Wood, Reg Reg gb Celio Reyes, Injection Molding Machine Tender Unit ml3 Orlando Milan DO DO mm11 Lyn Hickman, LEONIDAS RN hs1 Kat Mata, MAPPING TECHNICIAN Leidy Marie RN RN sls1 Lm Stoll,RT RT rs5 Mariah Lozada Kari, RN RN ko2 Sofy Aguilar [facility] Orlando Amaro,RN RN mgs Clementine Boss,RT RT lf2 Dayna Montes, MAPPING TECHNICIAN MAPPING TECHNICIAN cln Venu Brown, MAPPING TECHNICIAN MAPPING TECHNICIAN jmv Corrections: (The following items were deleted from the chart) 01:39 01:31 Neurological: Level of Consciousness is awake, alert, ko2 ko2 08:38 08:30 Pulse 101bpm; Monitor; Pulse Ox 96% 02 40% Venturi mask; hs1 hs1 MTDD
[2016-04-06] MEDS ORDERED: SLF 3 ML SYR IV PRN (21:45)
[2016-04-06] MEDS: SLF 3 ML SYR IV SCH (21:54)
[2016-04-06 22:20] LABS: INR 4.68
[2016-04-06] MEDS ORDERED: SENOKOT S TAB PO PRN (23:00)
[2016-04-07] VITALS (14 sets, daily range): BP systolic 100–134; BP diastolic 56–78
[2016-04-07] MEDS ORDERED: DIGOXIN INJ 0.5 MG/2 ML AMP (J1160) IV STA ×2 (03:41→08:22)
[2016-04-07 04:43] LABS: MEAN CORPUSCULAR HEMOGLOBIN 28.4 pg (27.0-33.0); MEAN CORPUSCULAR HGB CONC 33.1 g/dl (32.0-36.5); MEAN CORPUSCULAR VOLUME 86.1 fl (80.0-96.0); RED CELL DISTRIBUTION WIDTH 20.2 % (11.5-14.5)
[2016-04-07 04:47] LABS: INR 4.09
[2016-04-07 04:55] LABS: ANION GAP 9 MEQ/L (8-16); BLOOD UREA NITROGEN 37 MG/DL (7-18); CALCIUM LEVEL 8.2 MG/DL (8.8-10.2); CARBON DIOXIDE LEVEL 32 MEQ/L (21-32); CHLORIDE LEVEL 102 MEQ/L (98-107); CREATININE FOR GFR 0.86 MG/DL (0.55-1.02); GLOMERULAR FILTRATION RATE > 60.0 (>32); GLUCOSE, FASTING 120 MG/DL (83-110); POTASSIUM SERUM 4.4 MEQ/L (3.5-5.1); SODIUM LEVEL 143 MEQ/L (136-145)
[2016-04-07] MEDS: LEVOTHYROXINE 0.025 MG TAB (25 MCG) PO SCH (06:00)
[2016-04-07] MEDS: SLF 3 ML SYR IV SCH ×2 (06:00→11:54)
[2016-04-07] MEDS ORDERED: ALBUTEROL SULFATE 2.5 MG/0.5 ML INH NEB SOLN NEB PRN (06:15)
[2016-04-07] MEDS: IPRATROPIUM 0.5MG/ALBUTEROL 2.5MG INH SOL UD 3ML (DUONEB)(J7620) NEB SCH (07:35)
[2016-04-07] MEDS: TIOTROPIUM INHALER/CAPSULE (SPIRIVA) INH SCH (07:35)
[2016-04-07] MEDS: FORMOTEROL FUMARATE 20 MCG/2 ML INHALATION SOLUTION (PERFOROMIST) INH SCH ×2 (07:35→19:16)
[2016-04-07] MEDS ORDERED: FUROSEMIDE 40 MG/4 ML VIAL (J1940) IV SCH (08:00)
[2016-04-07] MEDS: VANCOMYCIN HCL 750 MG, VIAL MATE ADAPTER 1 EACH in D5W 250 ML IV SCH (08:05)
[2016-04-07] MEDS: CitaloPRAM (CeleXA) 20 MG TAB PO SCH (08:05)
[2016-04-07 08:48] LABS: RETIC HEMOGLOBIN CONTENT CHr 27.9 PG (24-36); RETICULOCYTE % ADVIA2120 4.2 % (0.5-1.5)
--- NOTE | 2016-04-07 09:57 | REP ---
Clinical: Hepatitis. Technique: Real time cosby scale and color evaluation of the right upper quadrant using curved array transducer. Findings: Liver and visualized portions of the pancreas are normal in contour, size, and echogenicity without focal hepatic or pancreatic lesions identified. The gallbladder is moderately distended with small amount of layering sludge and noncalcified cholelithiasis without wall thickening, pericholecystic fluid, or sonographic Leonard's sign. No biliary ductal dilatation is appreciated and the common bile duct measures 5.8 mm diameter. The right kidney is normal in reniform shape appearing moderately echogenic without hydronephrosis and measures 9.8 x 4.4 x 4.2 cm. No ascites in the visualized right upper quadrant. Impression: 1. Essentially normal appearance to the liver. 2. Distended gallbladder with evidence for cholelithiasis. 3. Chronic medical renal disease including mild atrophy involving the right kidney without hydronephrosis. Signed by Cali Alberto MD 04/07/2016 09:48 A
[2016-04-07] MEDS: LEVALBUTEROL 1.25 MG/0.5 ML CONCENTRATE NEB INH SCH ×4 (10:13→20:00)
[2016-04-07] MEDS: IPRATROPIUM 0.02% SOLN 0.5MG/2.5 ML NEB INH SCH ×4 (10:13→20:00)
[2016-04-07] MEDS: CEFEPIME HCL 2 GM in D5W MINI-BAG PLUS 50 ML IV SCH (10:56)
[2016-04-07] MEDS: DIGOXIN 0.125 MG TAB PO SCH (10:57)
[2016-04-07] MEDS: FUROSEMIDE 40 MG/4 ML VIAL (J1940) IV SCH (10:57)
[2016-04-07] MEDS: methylPREDNISolone INJ 125 MG/2 ML VIAL (J2930) IV SCH ×2 (10:57→16:35)
--- NOTE | 2016-04-07 14:51 | IPNPDOC ---
Date of Service/Time 04/07/16 Progress Note Overnight events: The patient was discontinued from her Lasix she did receive 1 unit of FFP and 1 unit of PRBCs for mild hemoptysis she also did receive 1 additional dose of digoxin IV SUBJECTIVE: The patient tells me that she is breathing much more easily today but she feels though her heart rate is still racing almost feels improved from the time of admission. The patient cannot tell me what happened and then days ago when she was actually discharged on the fourth until her return to the hospital she cannot have any recollection of those days whatsoever. At the present time the patient is oriented to person place time and to situation she denies chest pains lightheadedness dizziness nausea vomiting diarrhea fevers or chills OBJECTIVE: PHYSICAL EXAMINATION: VITAL SIGNS: Tachycardic to the 120s Please see below. GENERAL: [She is a frail cachectic appearing female sitting up in bed she is in mild respiratory distress] HEENT: Pupils equally round reactive to light there's mild elevation central venous pressure she has moist mucous membranes CARDIOVASCULAR: S1-S2 irregularly irregular and tachycardic. RESPIRATORY: Mild accessory muscle use, she is mildly tachypnic, she is quite wheezy throughout with bibasilar Rales. ABDOMINAL: [Bowel sounds present abdomen soft] EXTREMITIES: Trace edema bilaterally NEUROLOGICAL: NonFocal LABORATORY DATA: Hemoglobin up to 9.0 from 7.5 after 1 unit PRBCs, leukocytosis of 12, lactic acidosis mildly elevated BNP, 3 sets of cardiac enzymes negative, abnormal liver function tests since February otherwise Please see below. MICROBIOLOGY: Blood cultures thus far negative otherwise Please see below. IMAGING: [CT of the chest revealed significant decrease in bilateral pleural effusions increasing bilateral multifocal multilobar groundglass densities of the lungs, multifocal pulmonary edema versus superimposed pneumonia, no change in aneurysm of the aorta] Echocardiogram: [From March 24 normal LV systolic function, possibly some evidence of diastolic dysfunction, moderately elevated pulmonary artery systolic pressure and RV systolic ventricular systolic pressure, mild left atrial dilation]. DVT prophylaxis ordered?: [Patient has a supratherapeutic INR secondary to Coumadin] ASSESSMENT AND PLAN: This is a 80-year-old female with hypoxic respiratory failure and atrial fibrillation with rapid ventricular response. Problem #1 hypoxic respiratory failure: Patient normally has no oxygen requirement at the present time is requiring 3 L of nasal cannula and reportedly was requiring nonrebreather at the time of her presentation to the emergency room. At the present time given her CT findings is concern for pulmonary edema versus healthcare associated multifocal pneumonia. The patient was recently admitted and recently intubated the patient also has a history of COPD. The patient's Lasix was discontinued overnight however I'll restart this given that she does appear to be mildly fluid overloaded still SLOW down the rate of her diuresis and monitor renal function closely. In terms of the patient 's COPD she is on nebulizer treatments and switched to Xopenex to help reduce her tachycardia have also started her on IV Solu-Medrol. There is also concern that the patient may have healthcare associated pneumonia based on the imaging findings and as such she is empirically on cefepime and vancomycin for the time being. We'll follow-up his cultures and narrow spectrum as appropriate. We'll check an MRSA screen of the nares. At the present time she is improved from the time of admission Problem #2 atrial fibrillation with rapid ventricular response: I did have a lengthy conversation with her parts inspector Dr. Palomino did see the patient in consultation at the end of last month. He informed me at the time she was actually running bradycardic and somewhat firm reconciliations were discontinued we did discuss her case at length all pertinent labs and vital signs provided he suggested titrating of the patient's Cardizem to 240 mg by mouth twice a day and continuing with digoxin and felt that she was adequately loaded at this point. Dr. Palomino did not feel she would benefit from pacemaker placement or ablation Problem #3 hypothyroidism we'll check a TSH and continue his Synthroid Problem #4 anemia: Unclear etiology however the patient has had acute drop in her hemoglobin at this time, I will check iron studies and occult stool for blood, until we are able to ascertain the cause I will hold pharmacological DVT prophylaxis and her Coumadin Problem #5 lactic acidosis: Likely secondary to respiratory distress resolved Problem #6 anxiety: Continue with Celexa her home Xanax is currently on hold given her tenuous respiratory status will restart when necessary at a lower dose to avoid withdrawal symptoms. Problem #7 CVA: The patient is on aspirin and statins currently on hold Coumadin is currently on hold and restart statin as appropriate Problem #8 liver function test abnormalities: Unclear etiology of check a duplex ultrasound of the liver she did have a hepatitis panel previously negative we're currently holding her statin will continue to monitor her liver function tests daily Problem #7 CVA DISPOSITION: [The patient's clinical status remains quite guarded at this time given her recent along and help in hospital stay to confirm her CODE STATUS and she is a full code]. VS, I&O, 24H, Fishbone VS, I&O, 24H, Fishbone Vital Signs Date Time Temp Pulse Resp B/P Pulse Ox O2 Delivery O2 Flow Rate FiO2 04/07/16 12:00 97.0 112 20 100/56 92 Nasal Cannula 3.0 04/06/16 07:40 40 I&O- Last 24 Hours up to 6 AM 04/07/16 05:59 Intake Total 1380 ml Output Total 2375 ml Balance -995 ml Laboratory Tests 2 04/06/16 22:02: Prothromb Time International Ratio 4.68, Prothrombin Time 44.0H 04/07/16 04:19: Prothromb Time International Ratio 4.09, Prothrombin Time 39.6H, Absolute Reticulocyte Count 139H, Anion Gap 9, Blood Urea Nitrogen 37H, Creatinine 0.86, Sodium Level 143, Potassium Level 4.4#, Chloride Level 102, Carbon Dioxide Level 32, Calcium Level 8.2L, Glomerular Filtration Rate > 60.0, Percent Reticulocyte Count 4.20H, Reticulocyte Hgb Content (CHr) 27.9 04/07/16 06:56: Ferritin 52, Iron Level 71, Lactic Acid Level 0.9, Thyroid Stimulating Hormone ( TSH) 1.570, Total Iron Binding Capacity 309, Transferrin % Saturation 23.0, Troponin I 0.05# Laboratory Tests 04/06/16 22:02 04/07/16 04:19 Calcium Level 8.2 L, Red Blood Count 3.17 L, Mean Corpuscular Volume 86.1, Mean Corpuscular Hemoglobin 28.4, Mean Corpuscular Hemoglobin Concent 33.1, Red Cell Distribution Width 20.2 H Microbiology 04/06/16 Blood Culture - Preliminary, Resulted No growth after 24 hours . All specim... 04/06/16 Blood Culture - Preliminary, Resulted No growth after 24 hours . All specim... 04/07/16 Stool Occult Blood (ETIENNE) - Final, Complete 04/06/16 Gram Stain - Final, Resulted 04/06/16 Sputum Culture, Resulted Pending CAMELIA KAY MD Apr 07, 2016 14:51
[2016-04-07] MEDS ORDERED: ALPRAZolam 0.25 MG TAB PO PRN (15:00)
[2016-04-08] VITALS (8 sets, daily range): BP systolic 113–138; BP diastolic 56–67; O2SAT 99–100
[2016-04-08] MEDS: methylPREDNISolone INJ 125 MG/2 ML VIAL (J2930) IV SCH ×5 (00:10→16:27)
[2016-04-08] MEDS: SLF 3 ML SYR IV SCH ×4 (00:11→22:00)
[2016-04-08] MEDS: LEVALBUTEROL 1.25 MG/0.5 ML CONCENTRATE NEB INH PRN (03:29)
[2016-04-08] MEDS: IPRATROPIUM 0.02% SOLN 0.5MG/2.5 ML NEB INH PRN (03:29)
[2016-04-08 05:37] LABS: MEAN CORPUSCULAR HEMOGLOBIN 28.1 pg (27.0-33.0); MEAN CORPUSCULAR HGB CONC 32.9 g/dl (32.0-36.5); MEAN CORPUSCULAR VOLUME 85.2 fl (80.0-96.0); RED CELL DISTRIBUTION WIDTH 20.1 % (11.5-14.5); WHITE BLOOD COUNT 9.9 K/mm3 (4.0-10.0)
[2016-04-08 05:39] LABS: INR 2.26
[2016-04-08] MEDS: LEVOTHYROXINE 0.025 MG TAB (25 MCG) PO SCH (05:40)
[2016-04-08 05:53] LABS: ANION GAP 10 MEQ/L (8-16); BLOOD UREA NITROGEN 47 MG/DL (7-18); CALCIUM LEVEL 8.3 MG/DL (8.8-10.2); CARBON DIOXIDE LEVEL 32 MEQ/L (21-32); CHLORIDE LEVEL 100 MEQ/L (98-107); CREATININE FOR GFR 0.76 MG/DL (0.55-1.02); GLOMERULAR FILTRATION RATE > 60.0 (>32); GLUCOSE, FASTING 142 MG/DL (83-110); POTASSIUM SERUM 4.2 MEQ/L (3.5-5.1); SODIUM LEVEL 142 MEQ/L (136-145)
--- NOTE | 2016-04-08 06:17 | PHACANCOPD ---
PHARMACY VANCOMYCIN DOSING Pt Demographics Demographics Patient Age:80 , Weight:41.000 , Gender: female Adjusted Body Weight Date: 04/06/16, Adjusted Body Weight: Kg Vancomycin Vancomycin Target Ranges: 15-20 mcg/ml Vancomycin Load Y/N: No Load Dose Date Time Vancomycin Load Dose: Date: Time: Vancomycin Dose Date: 04/06/16. Current Vancomycin Dose: [750MG Q24H] Intermittent Dosing?: No Labs Micro Microbiology 04/06/16 Blood Culture - Preliminary, Resulted No Growth after 48 hours. All Specime... 04/06/16 Blood Culture - Preliminary, Resulted No Growth after 48 hours. All Specime... 04/07/16 Stool Occult Blood (ETIENNE) - Final, Complete 04/07/16 MRSA Screen, Received Pending 04/06/16 Gram Stain - Final, Resulted 04/06/16 Sputum Culture, Resulted Pending 04/07/16 Urine Culture, Received Pending Creatinine Clearance Date:04/06/16. Creatinine Clearance: [36]. Pending Labs Trough 04-08 @0500-reported as 9.2 Assessment and Plan Maintaining Current Dose?: No Reason for dose change: Trough too low Pharmacist Note Pharmacist Note Date: 04/08/16. Pharmacist note:Patient scr=[id number] today :Vancomycin trough drawn this morning @0515=9.2-will therefore increase Vancomycin regimen to 1 Gram IV [id number] continue to monitor Date: 04/06/16. Pharmacist note:Dosed at 750mg q24h with a trough ordered for 01 @0500. Will continue to monitor and make adjustments as needed. LISA GALINDO PHARMACY Apr 08, 2016 06:17
[2016-04-08 06:28] LABS: ABG BASE EXCESS 9.8 (-2.0-2.0); ABG HCO3 35.6 MEQ/L (22.0-26.0); ABG PARTIAL PRESSURE CO2 55.7 mmHg (35.0-45.0); ABG STANDARD HCO3 33.5 MEQ/L (22.0-26.0); ABG TOTAL CO2 37.3 MEQ/L (23.0-31.0); ABG pH (ARTERIAL) 7.423 UNITS (7.350-7.450)
[2016-04-08] MEDS: VANCOMYCIN HCL 1,000 MG, VIAL MATE ADAPTER 1 EACH in D5W 250 ML IV SCH (06:35)
[2016-04-08] MEDS: IPRATROPIUM 0.02% SOLN 0.5MG/2.5 ML NEB INH SCH ×4 (07:23→19:50)
[2016-04-08] MEDS: FORMOTEROL FUMARATE 20 MCG/2 ML INHALATION SOLUTION (PERFOROMIST) INH SCH ×2 (07:23→19:50)
[2016-04-08] MEDS: LEVALBUTEROL 1.25 MG/0.5 ML CONCENTRATE NEB INH SCH ×5 (07:23→21:49)
[2016-04-08] MEDS: BUDESONIDE 0.5 MG/2 ML INHALATION SUSPENSION INH SCH ×2 (08:00→19:50)
--- NOTE | 2016-04-08 08:17 | REP ---
AP portable sitting chest radiograph 04/08/2016 Indication: Dyspnea at rest, CHF, pleural effusions Comparison: Portable chest 04/06/2016, CT chest 04/06/2016, PA and lateral chest 03/31/2016 Cardiac silhouette is mildly enlarged. There is ectasia/aneurysmal dilatation and tortuosity of the desscending thoracic aorta again noted. Diffuse interstitial infiltrates are noted with upper lobe predominance. There are small bilateral pleural effusions and bibasilar compressive atelectasis. Mixed interstitial/ alveolar infiltrate in right upper lobe. Impression: COPD with interstitial pulmonary edema, new since 03/31/2016. Small bilateral pleural effusions, bibasilar atelectasis. Superimposed left basilar infiltrate or developing mass not excluded( see PA and lateral chest 03/31/2016) . Mixed interstitial/ alveolar infiltrate in right upper lobe. Aneurysmal dilatation and tortuosity of descending thoracic aorta again noted Signed by Vane Henriquez MD 04/08/2016 08:08 A
[2016-04-08] MEDS: DIGOXIN 0.125 MG TAB PO SCH (10:22)
[2016-04-08] MEDS: FUROSEMIDE 40 MG/4 ML VIAL (J1940) IV SCH ×2 (10:22→20:46)
[2016-04-08] MEDS: CitaloPRAM (CeleXA) 20 MG TAB PO SCH (10:22)
[2016-04-08] MEDS: CEFEPIME HCL 2 GM in D5W MINI-BAG PLUS 50 ML IV SCH (10:31)
--- NOTE | 2016-04-08 11:15 | CR ---
DATE OF CONSULTATION: 04/08/2016 REASON FOR CONSULTATION: Hypoxia. REQUESTING PROVIDER: Dr. Hess HISTORY OF PRESENT ILLNESS: Maria Guadalupe is a very pleasant 80-year-old female. She is sleeping on my arrival to her room. I awake her easily with tactile stimuli, as she did not respond to voice. During our conversation, she is visibly dyspneic. I am unable to get an accurate history from the patient herself. She states that she is going to turn 84 this year. According to our records, she is 80. She states that she feels short of breath when she moves. She denies orthopnea. She states that she was coughing up some brownish sputum; however, she could not tell me if there was any blood. She does not have any chest pain and overall she states that she feels well. She states that she does not have a insulation installer that she sees routinely. She was intubated for respiratory failure on a recent prior hospitalization. Since her time here, she has been treated for congestive heart failure (CHF) and pneumonia due to evidence of ground glass infiltrate in the bilateral upper lobes. As I said, unfortunately, I am unable to obtain any significant history from the patient as she is not mentally able to provide this history at this point in time. It was noted that the patient is anemic initially with an elevated INR. She required blood transfusion and fresh frozen plasma. Her INR is now in the 2 range. PAST MEDICAL HISTORY: According to her chart, she has a past medical history of: 1. Chronic obstructive pulmonary disease/emphysema. 2. Diastolic dysfunction. 3. Atrial fibrillation, was recently on anticoagulation. 4. Hypertension. 5. Aortic aneurysm measuring 4.7 cm. 6. Pulmonary hypertension, likely from group 2 and group 3 WHO classification. 7. History of CVA. 8. History of focal seizure. 9. Gastroesophageal reflux disease (GERD). 10. Macular degeneration. 11. Hypothyroidism. 12. History of uterine cancer, status post hysterectomy. 13. History of temporal arteritis. 14. Anxiety and depression. 15. Osteoporosis. PAST SURGICAL HISTORY: 1. Angioplasty for coronary artery disease. 2. Appendectomy. 3. Right wrist fracture. 4. Bilateral cataract surgery. 5. History of hip repair in 2014. SOCIAL HISTORY: The patient is a full code. She identifies her daughter, Maria Guadalupe Mccoy, as her healthcare decision maker. She is a reformed smoker. She is unable to further provide any details about her smoking history. She denies alcohol use. REVIEW OF SYSTEMS: Unobtainable due to patient's mental status. PHYSICAL EXAMINATION: VITAL SIGNS: Temperature is 96.3, pulse is 80, respiratory rate is 30, blood pressure is 122/56, oxygen saturation is 95% on 4 liters nasal cannula. Input and output over the past 24 hours: 950 in and 1250 out, negative 300 mL. GENERAL: The patient is sitting in bed, visibly dyspneic with minimal conversation. She is using abdominal muscles to breathe. HEENT: Sclerae clear and anicteric. Pupils are 6 mm and reactive to light. Mucous membranes are moist. Tongue is midline. She is edentulous. Mallampati 1. NECK: Supple. No tracheal deviation or mass. Jugular venous pressure is elevated. LYMPHATICS: No cervical, supraclavicular, axillary adenopathy. CARDIAC: Distant. S1, S2. Without audible murmur, rub or gallop. PMI is nondisplaced. LUNGS: Breath sounds are decreased bilaterally at the bases posteriorly. There is a prolonged expiratory phase. There are dry rales anteriorly on the right. She is using accessory muscles to breathe, but there are no retractions. There is dullness to percussion approximately 1/8th of the lung bases bilaterally. ABDOMEN: Soft, nontender, nondistended. No hepatosplenomegaly. No masses or hernias. EXTREMITIES: There is pitting pedal edema. She has TEDs in place. No cyanosis or clubbing. SKIN: She has bruising over her extremities. MUSCULOSKELETAL: Has significant muscle wasting. No joint effusion or evidence of fracture. LABORATORY EVALUATION: Sodium 142, potassium 4.2, chloride 100, bicarbonate 32, BUN 47, creatinine 0.76, and a glucose of 142. White blood cell count is 9.9, hemoglobin is 8.5, hematocrit 26.0, platelet count is 175, INR is 2.26 today, pH of 7.42, PCO2 of 56, and a PAO2 of 118. Chest x-ray shows hyperinflation with increased interstitial markings suggestive of interstitial edema. There is an abnormal left hilum, likely from tortuous aorta. Chest CT was reviewed from 04/06/2016 and I agree with the formal radiologic interpretation. There is a significant amount of emphysema, large aortic aneurysm measuring 4.7 cm. There is significant ground glass infiltrates in the upper lobes and bilateral small pleural effusions. IMPRESSION: 1. Hypoxia, differential diagnosis includes pulmonary edema and alveolar hemorrhage. She did present with hypoxia and anemia with an elevated INR, which could correlate with diffuse alveolar hemorrhage. It is difficult to obtain whether the patient is truly having hemoptysis or not, there has been none reported by the nursing staff. At this point in time, would continue monitoring the INR. Patient is at risk for stroke because of her atrial fibrillation, has a history of stroke, therefore discontinuing anticoagulation would be a difficult decision. I agree with attempts for further diuresis. I would recommend attempts for diuresis, at least 1 liter a day. I will check albumin as the patient is likely hypoalbuminemic given her musculoskeletal appearance. She does have an expiratory wheeze, which may be related to her chronic obstructive pulmonary disease. She is on Solu-Medrol. I did add inhaled budesonide to facilitate weaning from steroids. 2. Abnormal chest CT. 3. Emphysema. She is already on Spiriva and a long acting beta agonist. I have added an inhaled steroid. She has been on short-acting beta agonist in the nebulized form. 4. Anemia. We will continue to watch and look for potential sources of bleeding. If her anemia becomes worse over time and infiltrates worsen, this may be indicative of diffuse alveolar hemorrhage, as mentioned above. 5. Advanced directives. The patient overall has a poor prognosis, given the severity of her emphysema. Continued discussion on focus on advanced directives recommended. At this point in time, the patient remains FULL CODE with a healthcare proxy of her daughter, Maria Guadalupe Mccoy. Thank you for this consultation.
[2016-04-08 13:08] LABS: ALBUMIN 2.8 GM/DL (3.2-5.2)
--- NOTE | 2016-04-08 13:55 | IPNPDOC ---
Date of Service/Time 04/08/16 Progress Note SUBJECTIVE: The patient tells me that her breathing is a little bit more challenged today but otherwise she denies any racing or palpitations she denies chest pains lightheadedness dizziness passing out nausea vomiting fevers or chills OBJECTIVE: PHYSICAL EXAMINATION: VITAL SIGNS: Increased O2 requirement this morning, improved rate control otherwise Please see below. GENERAL: She is a frail cachectic appearing female sitting up in bed she is in mild respiratory distress HEENT: Pupils equally round reactive to light there is elevation central venous pressure she has moist mucous membranes CARDIOVASCULAR: S1-S2 irregularly irregular and tachycardic. RESPIRATORY: Mild accessory muscle use, she is mildly tachypnic, she is quite wheezy throughout with bibasilar Rales. ABDOMINAL: Bowel sounds present abdomen soft EXTREMITIES: Trace edema bilaterally NEUROLOGICAL: NonFocal LABORATORY DATA: Hemoglobin 8.5, appropriate reticulocytosis, resolved leukocytosis, rising BNP INR 2.2 otherwise Please see below. MICROBIOLOGY: Blood cultures thus far negative urine and sputum positive for yeast otherwise Please see below. 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 DVT prophylaxis ordered?: Patient has a therapeutic INR secondary to Coumadin ASSESSMENT AND PLAN: This is a 80-year-old female with hypoxic respiratory failure and atrial fibrillation with rapid ventricular response. Problem #1 hypoxic respiratory failure: Patient normally has no oxygen requirement at the present time is requiring 5 L increased from yesterday of only 3. At the present time given her CT findings is concern for pulmonary edema versus healthcare associated multifocal pneumonia versus alveolar hemorrhage. The patient was recently admitted and recently intubated the patient also has a history of COPD. The patient appears to be mildly fluid overloaded this a.m. and as such I will increase her diuresis also given her worsening Poliner status I spoke with Dr. Gómez of pulmonary critical care we will see the patient in consultation. In terms of the patient's COPD she is on nebulizer treatments and on IV Solu-Medrol. There is also concern that the patient may have healthcare associated pneumonia based on the imaging findings and as such she is empirically on cefepime and vancomycin for the time being. We 'll follow-up his cultures and narrow spectrum as appropriate. We'll check an MRSA screen of the nares. She is clinically improving from with a resolved leukocytosis and as such I my suspicion for candidemia is less likely Problem #2 atrial fibrillation with rapid ventricular response: The patient has improved rate control at this time her blood pressure is tolerating her Cardizem and digoxin as well. Dr. Palomino did not feel the patient would benefit from a pacemaker. At the present time the patient did have some acute anemia presentation without any obvious clear blood loss source there is concern for alveolar hemorrhage as such rhinitis been reversed although not completely as of yet. For the time being we will hold off on any further anticoagulation Problem #3 hypothyroidism continue with Synthroid Problem #4 anemia: Unclear etiology however the patient has had acute drop in her hemoglobin at this time there is concern for alveolar hemorrhage given her reticulocytosis and fairly unremarkable iron studies it does appear to be acute blood loss anemia. Problem #5 lactic acidosis: Likely secondary to respiratory distress resolved Problem #6 anxiety: Continue with Celexa we will hold her home Xanax given her tenuous respiratory status will restart when necessary at a lower dose to avoid withdrawal symptoms. Problem #7 CVA: The patient is on aspirin and statins currently on hold, Coumadin is currently on hold and restart statin as appropriate. The patient is at risk of repeat CVA while her anticoagulations on hold at this time the risks outweigh the benefit Problem #8 liver function test abnormalities: Unclear etiology of check a duplex ultrasound of the liver she did have a hepatitis panel previously negative we're currently holding her statin will continue to monitor her liver function tests daily Problem #9 abdominal aortic aneurysm: Stable requires outpatient follow-up DISPOSITION: The patient's clinical status remains quite guarded at this time given her recent along and help in hospital stay to confirm her CODE STATUS and she is a full code. VS, I&O, 24H, Fishbone VS, I&O, 24H, Fishbone Vital Signs Date Time Temp Pulse Resp B/P Pulse Ox O2 Delivery O2 Flow Rate FiO2 04/08/16 12:00 96.8 97 26 126/56 98 Nasal Cannula 4.0 04/06/16 07:40 40 I&O- Last 24 Hours up to 6 AM 04/08/16 06:00 Intake Total 890 ml Output Total 1250 ml Balance -360 ml Laboratory Tests 2 04/07/16 14:57: Urine Amorphous Sediment , Urine Appearance CLEAR, Urine Color YELLOW, Urine pH 6.0, Urine Specific [place] 1.011, Urine Protein NEGATIVE, Urine Glucose (UA) NEGATIVE, Urine Ketones NEGATIVE, Urine Urobilinogen 0.2, Urine Bilirubin NEGATIVE, Urine Leukocyte Esterase TRACEH, Urine Bacteria (Auto) NEGATIVE, Urine Blood 2+H, Urine Calcium Carbonate Cryst(Auto) , Urine Calcium Oxalate Cryst (Auto) , Urine Calcium Phosphate [place] (Auto) , Urine Cellular Casts , Urine Cystine Crystals , Urine Granular Casts (Auto) , Urine Hyaline Casts (Auto ) 1, Urine Leucine Crystals , Urine Mucus (Auto) SMALL, Urine Nitrite NEGATIVE, Urine Oval Fat Bodies (Auto) , Urine RBC (Auto) 58H, Urine Renal Epithelial Cells , Urine Sperm (Auto) , Urine Squamous Epithelial Cells 0, Urine Transitional Epithelial Cells , Urine Trichomonas (Auto) , Urine Triple Phosphate Cryst (Auto) , Urine Tyrosine Crystals , Urine Uric Acid Crystals ( Auto) , Urine WBC (Auto) 8H, Urine Waxy Casts (Auto) , Urine Yeast-Like Cells ( Auto) 04/08/16 05:15: B-Type Natriuretic Peptide 833H 04/08/16 05:17: Albumin 2.8L, Anion Gap 10, Blood Urea Nitrogen 47H, Creatinine 0.76, Sodium Level 142, Potassium Level 4.2, Chloride Level 100, Carbon Dioxide Level 32, Calcium Level 8.3L, Glomerular Filtration Rate > 60.0, Prothromb Time International Ratio 2.26, Prothrombin Time 25.0H, Troponin I 0.07#, Vancomycin Level Trough 9.2L 04/08/16 05:57: Arterial Blood pH 7.423, Arterial Blood Partial Pressure CO2 55.7H, Arterial Blood Partial Pressure O2 118.0H, Arterial Blood Total CO2 37.3H, Arterial Blood HCO3 35.6H, Arterial Blood Base Excess 9.8H, Arterial Blood Oxygen Saturation 98.5, Blood Gas Bicarbonate Standard 33.5H Laboratory Tests 04/08/16 05:17 Calcium Level 8.3 L, Red Blood Count 3.05 L, Mean Corpuscular Volume 85.2, Mean Corpuscular Hemoglobin 28.1, Mean Corpuscular Hemoglobin Concent 32.9, Red Cell Distribution Width 20.1 H Microbiology 1/9/17 Blood Culture - Preliminary, Resulted No Growth after 48 hours. All Specime... 04/06/16 Blood Culture - Preliminary, Resulted No Growth after 48 hours. All Specime... 04/07/16 Stool Occult Blood (ETIENNE) - Final, Complete 04/07/16 MRSA Screen, Received Pending 04/06/16 Gram Stain - Final, Complete 04/06/16 Sputum Culture - Final, Complete Yeast Like Organism 04/07/16 Urine Culture - Final, Complete Yeast Like Organism CAMELIA KAY MD Apr 08, 2016 13:55
[2016-04-08 14:45] LABS: ALBUMIN 2.8 GM/DL (3.2-5.2); ALBUMIN/GLOBULIN RATIO 0.93 (1.00-1.93); BILIRUBIN,DIRECT 0.3 MG/DL (0.0-0.2); BILIRUBIN,TOTAL 0.7 MG/DL (0.2-1.0); TOTAL PROTEIN 5.8 GM/DL (6.4-8.2)
--- NOTE | 2016-04-08 21:42 | EDDOCDS ---
Physician Documentation [facility] Name: Maria Guadalupe Roque Age: 80 yrs Sex: Female : 1935 Arrival Date: 04/06/2016 Time: 01:21 Bed Admit Hold Private MD: Disposition: 04/06/16 05:15 Hospitalization ordered by Willa Mukherjee for Inpatient Admission. Preliminary diagnosis is Acute diastolic (congestive) heart failure. - Bed requested for PCU. - Status is Inpatient Admission. sls1 - Condition is Stable. - Problem is an acute exacerbation. - Symptoms have improved. Historical: - Allergies: Prednisone; - Home Meds: 1. diltiazem HCl 360 mg Oral cp24 1 cap once daily 2. furosemide 20 mg Oral tab 1 tab 2 times per day 3. levothyroxine 25 mcg oral tab 1 tab once daily 4. Senokot 8.6 mg Oral tab twice a day 5. Coumadin 4 mg Oral tab once daily 6. Xanax 0.5 mg Oral tab 1 tab as needed 7. aspirin 81 mg Oral tab once daily 8. Lipitor 80 mg Oral tab 1 tab once daily 9. citalopram 20 mg Oral tab 1 tab once daily 10. Colace 100 mg oral cap 1 cap as needed 11. Vision Formula oral tab 120 mL daily 12. Protonix 40 mg Oral TbEC 1 tab once daily 13. theophylline 300 mg Oral cp24 1 cap once daily 14. Brovana 15 mcg/2 mL inhalation nebu 2 times per day 15. albuterol sulfate 2.5 mg /3 mL (0.083 %) Inhl nebu 3 mL as needed every 4 hours 16. DuoNeb 0.5 mg-3 mg(2.5 mg base)/3 mL Inhl nebu every 8 hours - PMHx: Atrial Fib; COPD; CVA; GERD; Hypertension; PVD; - PSHx: Angioplasty; - Social history: Smoking status: Patient states former smoker of tobacco. No barriers to communication noted, The patient speaks fluent Kiswahili, Speaks appropriately for age. - : The pt / caregiver states he / she is on anticoagulants: coumadin. Home medication list is obtained from the patient. - Exposure Risk Screening:: None identified. Vital Signs: 04/06 01:34 BP 156 / 66; Pulse 95; Resp 30; Temp 98.2(TE); Pulse Ox 70% on R/A; Weight 42.2 kg / jmv 93.04 lbs (M); Height 5 ft. 2 in. (157.48 cm) (R); Pain 0/10; 01:35 Pulse 117 MON; Pulse Ox 93% ; ko2 01:43 Pulse Ox 100% on 100% Non-rebreather mask; jmv 02:29 Pulse 148 MON; Pulse Ox 94% ; ko2 02:30 BP 99 / 61 (auto/); ko2 02:44 Pulse 136 MON; Pulse Ox 94% ; ko2 02:45 BP 104 / 55 (auto/); ko2 03:00 BP 88 / 54 (auto/); ko2 03:00 Pulse 142 MON; Pulse Ox 93% ; ko2 03:14 BP 95 / 66 (auto/); ko2 03:14 Pulse 140 MON; Pulse Ox 89% ; ko2 03:15 BP 102 / 77 (auto/); ko2 03:15 Pulse 132 MON; Pulse Ox 91% ; ko2 03:29 Pulse 121 MON; Pulse Ox 90% ; ko2 03:30 BP 112 / 57 (auto/); ko2 03:45 BP 128 / 56 (auto/); ko2 03:45 Pulse 131 MON; Pulse Ox 93% ; ko2 03:59 Pulse 128 MON; Pulse Ox 92% ; ko2 04:00 BP 101 / 57 (auto/); ko2 04:15 BP 101 / 50 (auto/); ko2 04:15 Pulse 111 MON; Pulse Ox 90% ; ko2 04:29 Pulse 115 MON; Pulse Ox 91% ; ko2 04:30 BP 121 / 58 (auto/); ko2 04:45 BP 126 / 57 (auto/); ko2 04:45 Pulse 112 MON; Pulse Ox 90% ; ko2 05:00 BP 127 / 56 (auto/); ko2 05:00 Pulse 118 MON; Pulse Ox 91% ; ko2 05:14 Pulse 114 MON; Pulse Ox 91% ; ko2 05:15 BP 100 / 58 (auto/); ko2 05:29 Pulse 118 MON; Pulse Ox 89% ; ko2 05:30 BP 103 / 65 (auto/); ko2 05:45 BP 113 / 60 (auto/); ko2 05:45 Pulse 117 MON; Resp 22; Pulse Ox 91% ; ko2 06:29 Pulse 110 MON; Pulse Ox 93% ; hs1 06:30 BP 106 / 55 (auto/); hs1 06:44 Pulse 121 MON; Pulse Ox 93% ; hs1 06:45 BP 127 / 63 (auto/); hs1 07:00 BP 116 / 56 (auto/); hs1 07:00 Pulse 112 MON; Pulse Ox 95% ; hs1 07:15 BP 93 / 62 (auto/); hs1 07:15 Pulse 108 MON; Pulse Ox 96% ; hs1 07:30 BP 93 / 58 (auto/); hs1 07:30 Pulse 105 MON; Pulse Ox 95% ; hs1 07:45 BP 102 / 57 (auto/); hs1 07:45 Pulse 102 MON; Pulse Ox 94% ; hs1 08:00 BP 117 / 56 (auto/); hs1 08:00 Pulse 101 MON; Pulse Ox 96% ; hs1 08:15 BP 122 / 56 (auto/); hs1 08:15 Pulse 103 MON; Pulse Ox 96% ; hs1 08:30 BP 105 / 51 (auto/); hs1 08:30 Pulse 101 MON; Resp 20; Temp 98.5(TE); Pulse Ox 96% on 40% Venturi mask; hs1 01:34 Body Mass Index 17.02 (42.20 kg, 157.48 cm) jmv 01:34 RN notified about O2 jmv MDM: 01:42 Solu-MEDROL 125 mg IVP once ordered. mm11 01:42 -Blood Culture (Adults Only), peripheral from different site, or from device/port/PICC mm11 etc. if present ordered. 01:42 Pens And Pencils Dipper/Pulse Ox/q 15 min VS ordered. mm11 01:43 IV Saline Lock ordered. mm11 01:43 Oxygen at 4L/Min NC or Home dosage ordered. mm11 01:43 Rhythm Strip to chart ordered. mm11 01:43 Albuterol-Ipratropium 1 neb Nebulizer every 20 minutes x3 ordered. mm11 01:44 -Arterial Blood Gas Ordered. EDMS 01:44 -Blood Culture Ordered. EDMS 01:44 B-Type Natiuretic Peptide Ordered. EDMS 01:44 Basic Metabolic Profile Ordered. EDMS 01:44 CBC with Diff Ordered. EDMS 01:44 Cardiac Injury Profile Ordered. EDMS 01:44 Troponin Ordered. EDMS 01:44 Chest, 1 View Ordered. EDMS 01:44 ECG WITH READING ER PHYS+CARDIAG ordered. EDMS 01:45 -Blood Culture (Adults Only), peripheral from different site, or from device/port/PICC ml3 etc. if present complete. 01:45 BLOOD CULTURES Ordered. EDMS 02:01 Pt & Aptt Ordered. EDMS 02:10 Sputum Culture & Gram Stain Ordered. EDMS 02:16 Financial registration complete. [facility] 02:19 [facility] Payment Agreement was scanned into [employer] and attached to record. [facility] 02:31 -Arterial Blood Gas Reviewed. mm11 02:49 B-Type Natiuretic Peptide Reviewed. mm11 02:49 CBC with Diff Reviewed. mm11 03:01 Basic Metabolic Profile Reviewed. mm11 03:01 Cardiac Injury Profile Reviewed. mm11 03:01 Troponin Reviewed. mm11 03:08 Redraw CIP &Troponin (put time in details section) ordered. mm11 03:08 Repeat EKG (put time details section) ordered. mm11 03:13 Diltiazem 10 mg IVP once; administer over 2 minutes ordered. mm11 03:16 CT Chest Without Contrast Ordered. EDMS 03:21 Repeat EKG (put time details section) complete. ml3 03:21 Redraw CIP &Troponin (put time in details section) complete. ml3 03:22 ECG WITH READING ER PHYS ordered. EDMS 03:22 CARDIAC MARKER PANEL Ordered. EDMS 03:46 Diltiazem 15 mg IVP once; administer over 2 minutes ordered. mm11 04:35 Pt & Aptt Reviewed. mm11 04:49 CARDIAC MARKER PANEL Reviewed. mm11 05:01 [place] ordered. mm11 05:01 Furosemide 40 mg IVP once ordered. mm11 05:02 BED REQUEST+ADM ordered. EDMS 05:39 Admission / Observation Status ordered. EDMS 05:39 2 GRAM SODIUM DIET ordered. EDMS 05:45 C REACTIVE PROTEIN QUANTITATIV Ordered. EDMS 05:45 LACTIC ACID LEVEL, LACTATE Ordered. EDMS 10:21 SPUTUM CULTURE AND GRAM STAIN Ordered. EDMS 13:03 T-Sheet-- Draft Copy was scanned into [employer] [facility] [employer] [facility] and attached to record. gb 13:03 Radiology Report was scanned into [employer] [facility] [employer] [facility] and attached to record. gb 19:31 COMPLETE BLOOD COUNT Ordered. EDMS 19:31 BASIC METABOLIC PROFILE Ordered. EDMS 04/07 07:54 PCR was scanned into [employer] [facility] and attached to record. gb Administered Medications: 04/06 02:05 Drug: Albuterol-Ipratropium 1 neb [ipratropium-albuterol 0.5 mg-3 mg(2.5 mg base)/3 mL lf2 nebulization soln (1 neb)] Route: Nebulizer; 02:13 Drug: Albuterol-Ipratropium 1 neb [ipratropium-albuterol 0.5 mg-3 mg(2.5 mg base)/3 mL lf2 nebulization soln (1 neb)] Route: Nebulizer; 02:15 Drug: Solu-MEDROL 125 mg [Solu-Medrol 500 mg intravenous solution (125 mg)] Route: IVP; ko2 Site: left upper arm; 03:16 Drug: Diltiazem 10 mg [diltiazem 5 mg/mL intravenous solution (2 mL)] Route: IVP; Site: ko2 left upper arm; 04:11 Drug: Diltiazem 15 mg [diltiazem 5 mg/mL intravenous solution (3 mL)] Route: IVP; Site: ko2 left upper arm; 05:56 Drug: Furosemide 40 mg [furosemide 10 mg/mL injection solution (4 mL)] Route: IVP; ko2 Site: left upper arm; Signatures: Dispatcher [employer] EDMS [place] Jennifer, Reg Reg gb Celio Reyes, Technical Customer Support Specialist Unit ml3 Toro Milan, DO mm11 Leidy Hernandez RN RN sls1 Mary Woods RN RN ko2 Sofy Aguilar [facility] David Capps RN RN [facility] Clementine Boss lf2 The chart was reviewed and I authenticate all verbal orders and agree with the evaluation and treatment provided.Attachments: 02:19 [facility] [place] Agreement [facility] 13:03 T-Sheet-- Draft Copy Chart Complete MTDD
--- NOTE | 2016-04-08 21:42 | EDDOCDS ---
Nurse's Notes [facility] Name: Raquel Ramirez Age: 80 yrs Sex: Female : 1935 Arrival Date: 04/06/2016 Time: 01:21 Bed Admit Hold Private MD: Diagnosis: Acute diastolic (congestive) heart failure Presentation: 04/06 01:26 Presenting complaint: EMS states: shortness of breath started about an hour ago. pt has ko2 a history of emphysema and COPD. Pt coughing. Pt took 1 atrovent and a breath air inhaler. Suicide/Homicide risk assessment- the patient denies having any suicidal and/or homicidal ideations and does not present with any other emotional, behavioral or mental health complaints. 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 Transition of care: patient was not received from another setting of care. Care prior to arrival: See EMS report. Medications administered prior to arrival: Nebulized Albuterol. 01:26 Acuity: OLVIN Level 3 ko2 01:26 Method Of Arrival: Ambulance ko2 Triage Assessment: 01:31 General: Appears distressed, Behavior is cooperative. Neurological: Level of ko2 Consciousness is awake, alert, lethargic. 01:34 Cardiovascular: Rhythm is atrial fibrillation. Respiratory: Onset: The symptoms/episode ko2 began/occurred just prior to arrival, Airway is patent Respiratory effort is labored, Breath sounds are coarse bilaterally. Breath sounds are diminished bilaterally. Breath sounds with wheezes expiratory in left upper lobe and left lower lobe. GI: Abdomen is non- distended Bowel sounds present X 4 quads. Derm: Skin is pale. Musculoskeletal: Range of motion intact in all extremities. Historical: - Allergies: Prednisone; - Home Meds: 1. diltiazem HCl 360 mg Oral cp24 1 cap once daily 2. furosemide 20 mg Oral tab 1 tab 2 times per day 3. levothyroxine 25 mcg oral tab 1 tab once daily 4. Senokot 8.6 mg Oral tab twice a day 5. Coumadin 4 mg Oral tab once daily 6. Xanax 0.5 mg Oral tab 1 tab as needed 7. aspirin 81 mg Oral tab once daily 8. Lipitor 80 mg Oral tab 1 tab once daily 9. citalopram 20 mg Oral tab 1 tab once daily 10. Colace 100 mg oral cap 1 cap as needed 11. Vision Formula oral tab 120 mL daily 12. Protonix 40 mg Oral TbEC 1 tab once daily 13. theophylline 300 mg Oral cp24 1 cap once daily 14. Brovana 15 mcg/2 mL inhalation nebu 2 times per day 15. albuterol sulfate 2.5 mg /3 mL (0.083 %) Inhl nebu 3 mL as needed every 4 hours 16. DuoNeb 0.5 mg-3 mg(2.5 mg base)/3 mL Inhl nebu every 8 hours - PMHx: Atrial Fib; COPD; CVA; GERD; Hypertension; PVD; - PSHx: Angioplasty; - Social history: Smoking status: Patient states former smoker of tobacco. No barriers to communication noted, The patient speaks fluent Swiss, Speaks appropriately for age. - : The pt / caregiver states he / she is on anticoagulants: coumadin. Home medication list is obtained from the patient. - Exposure Risk Screening:: None identified. Assessment: 01:48 General: see triage assessment. ko2 02:44 General: Appears in no apparent distress, Behavior is appropriate for age. Pain: Denies ko2 pain. Neurological: Level of Consciousness is awake, alert. Cardiovascular: Rhythm is atrial fibrillation with rapid ventricular response Chest pain is denied. Respiratory: Airway is patent. Derm: Skin is pale. 04:00 General: Appears in no apparent distress, Behavior is appropriate for age. Pain: Denies ko2 pain. Neurological: Level of Consciousness is awake, alert. Cardiovascular: Rhythm is atrial fibrillation. Respiratory: Airway is patent Respiratory effort is even. Derm: Skin is pale. 05:05 General: Appears in no apparent distress, Behavior is appropriate for age. Pain: Denies ko2 pain. Neurological: Level of Consciousness is awake, alert. Cardiovascular: Rhythm is atrial fibrillation Chest pain is denied. Respiratory: Airway is patent Respiratory effort is even. Derm: Skin is pale. 07:15 General: Appears in no apparent distress, Pt appears resting with no needs. Pt hs1 knowledgeable of admission. Patient on venti mask and is currently receiving vancomycin through 20 gauge in left AC. . Cardiovascular: Rhythm is atrial fibrillation. 08:37 General: Appears in no apparent distress, Behavior is appropriate for age. Pain: Denies hs1 pain. Neurological: Level of Consciousness is awake, alert, obeys commands. Cardiovascular: Rhythm is atrial fibrillation. Respiratory: Airway is patent Respiratory effort is even. : Franklin in place to gravity drainage Urine is clear. Derm: Skin is pale. Vital Signs: 01:34 BP 156 / 66; Pulse 95; Resp 30; Temp 98.2(TE); Pulse Ox 70% on R/A; Weight 42.2 kg (M); jmv Height 5 ft. 2 in. (157.48 cm) (R); Pain 0/10; 01:35 Pulse 117 MON; Pulse Ox 93% ; ko2 01:43 Pulse Ox 100% on 100% Non-rebreather mask; jmv 02:29 Pulse 148 MON; Pulse Ox 94% ; ko2 02:30 BP 99 / 61 (auto/); ko2 02:44 Pulse 136 MON; Pulse Ox 94% ; ko2 02:45 BP 104 / 55 (auto/); ko2 03:00 BP 88 / 54 (auto/); ko2 03:00 Pulse 142 MON; Pulse Ox 93% ; ko2 03:14 BP 95 / 66 (auto/); ko2 03:14 Pulse 140 MON; Pulse Ox 89% ; ko2 03:15 BP 102 / 77 (auto/); ko2 03:15 Pulse 132 MON; Pulse Ox 91% ; ko2 03:29 Pulse 121 MON; Pulse Ox 90% ; ko2 03:30 BP 112 / 57 (auto/); ko2 03:45 BP 128 / 56 (auto/); ko2 03:45 Pulse 131 MON; Pulse Ox 93% ; ko2 03:59 Pulse 128 MON; Pulse Ox 92% ; ko2 04:00 BP 101 / 57 (auto/); ko2 04:15 BP 101 / 50 (auto/); ko2 04:15 Pulse 111 MON; Pulse Ox 90% ; ko2 04:29 Pulse 115 MON; Pulse Ox 91% ; ko2 04:30 BP 121 / 58 (auto/); ko2 04:45 BP 126 / 57 (auto/); ko2 04:45 Pulse 112 MON; Pulse Ox 90% ; ko2 05:00 BP 127 / 56 (auto/); ko2 05:00 Pulse 118 MON; Pulse Ox 91% ; ko2 05:14 Pulse 114 MON; Pulse Ox 91% ; ko2 05:15 BP 100 / 58 (auto/); ko2 05:29 Pulse 118 MON; Pulse Ox 89% ; ko2 05:30 BP 103 / 65 (auto/); ko2 05:45 BP 113 / 60 (auto/); ko2 05:45 Pulse 117 MON; Resp 22; Pulse Ox 91% ; ko2 06:29 Pulse 110 MON; Pulse Ox 93% ; hs1 06:30 BP 106 / 55 (auto/); hs1 06:44 Pulse 121 MON; Pulse Ox 93% ; hs1 06:45 BP 127 / 63 (auto/); hs1 07:00 BP 116 / 56 (auto/); hs1 07:00 Pulse 112 MON; Pulse Ox 95% ; hs1 07:15 BP 93 / 62 (auto/); hs1 07:15 Pulse 108 MON; Pulse Ox 96% ; hs1 07:30 BP 93 / 58 (auto/); hs1 07:30 Pulse 105 MON; Pulse Ox 95% ; hs1 07:45 BP 102 / 57 (auto/); hs1 07:45 Pulse 102 MON; Pulse Ox 94% ; hs1 08:00 BP 117 / 56 (auto/); hs1 08:00 Pulse 101 MON; Pulse Ox 96% ; hs1 08:15 BP 122 / 56 (auto/); hs1 08:15 Pulse 103 MON; Pulse Ox 96% ; hs1 08:30 BP 105 / 51 (auto/); hs1 08:30 Pulse 101 MON; Resp 20; Temp 98.5(TE); Pulse Ox 96% on 40% Venturi mask; hs1 01:34 Body Mass Index 17.02 (42.20 kg, 157.48 cm) jmv 01:34 RN notified about O2 [facility] Vitals: 04:29 Log In Time N/A - ambulance arrival. ko2 ED Course: 01:22 Patient visited by Celio Reyes, Blast Hole Driller. ml3 01:22 Mary Woods,RN is Primary Nurse. ml3 01:22 Patient moved to Waiting ml3 01:22 Patient moved to 2 ml3 01:29 Triage Initiated ko2 01:36 Orlando Milan DO is Attending Physician. mm11 01:36 Patient visited by Orlando Milan DO. mm11 01:41 Patient visited by Orlando Milan DO. mm11 01:43 Pt greeted and oriented to ED. Patient advised of names of staff involved in care, jmv location of call prabhakar, wait times and NPO status. Accompanied by Family Member, Patient has correct armband on for positive identification. Placed in gown. Bed in low position. Call light in reach. Side rails up X2. youth nutritional monitor on. Pulse ox on. NIBP on. 01:44 Patient visited by Venu Brown PCA. jmv 01:51 EKG done. (by ED staff). Reviewed by Orlando Milan DO. jmv 01:52 Patient visited by Venu Brown PCA. jmv 02:06 -Arterial Blood Gas Sent. kjn 02:19 [facility] Payment Agreement was scanned into [employer] and attached to record. [facility] 02:19 Inserted saline lock: 20 gauge in left antecubital area and blood collected. [facility] [place] tolerated the procedure well. 02:39 BLOOD CULTURES Sent. cln 02:44 Patient visited by Mary Woods RN. ko2 03:15 Patient visited by Orlando Milan DO. mm11 03:15 The patient / caregiver is instructed regarding the plan of care and ED course. ko2 Notified attending ED physician of Critical lab value. Dr Milan informed on INR of 5.03. 04:03 Patient visited by Kat Mata PCA. dacia 04:03 EKG done. (by ED staff). Reviewed by Orlando Milan DO. dacia 04:39 Patient visited by Mary Woods RN. ko2 05:14 Patient visited by Orlando Milan DO. mm11 05:14 Willa Mukherjee is Hospitalizing Provider. mm11 05:28 CT Chest Without Contrast Returned. EDMS 05:49 Franklin cath inserted 16 Fr. Balloon inflated. To gravity drainage. returned clear yellow ko2 urine. Patient tolerated well. 06:15 Patient moved to Admit Hold ml3 07:22 Primary Nurse role handed off by Mary Woods RN deg 08:36 Patient moved to 19 kcs 08:38 Chest, 1 View Returned. EDMS 09:45 EKG-ADULT Returned. EDMS 09:45 ECG WITH READING ER PHYS Returned. EDMS 13:03 T-Sheet-- Draft Copy was scanned into [employer] and attached to record. gb 13:03 Radiology Report was scanned into [employer] and attached to record. gb 15:06 Patient moved to Admit Hold kcs 04/07 07:54 PCR was scanned into [employer] and attached to record. gb Administered Medications: 04/06 02:05 Drug: Albuterol-Ipratropium 1 neb [ipratropium-albuterol 0.5 mg-3 mg(2.5 mg base)/3 mL lf2 nebulization soln (1 neb)] Route: Nebulizer; 02:13 Drug: Albuterol-Ipratropium 1 neb [ipratropium-albuterol 0.5 mg-3 mg(2.5 mg base)/3 mL lf2 nebulization soln (1 neb)] Route: Nebulizer; 02:15 Drug: Solu-MEDROL 125 mg [Solu-Medrol 500 mg intravenous solution (125 mg)] Route: IVP; ko2 Site: left upper arm; 03:16 Drug: Diltiazem 10 mg [diltiazem 5 mg/mL intravenous solution (2 mL)] Route: IVP; Site: ko2 left upper arm; 04:11 Drug: Diltiazem 15 mg [diltiazem 5 mg/mL intravenous solution (3 mL)] Route: IVP; Site: ko2 left upper arm; 05:56 Drug: Furosemide 40 mg [furosemide 10 mg/mL injection solution (4 mL)] Route: IVP; ko2 Site: left upper arm; Output: 05:50 Urine: 475.00ml (Franklin); Total: 475.00ml. ko2 RT: 02:05 Initial Med Neb Given as ordered Patient was instructed and evaluated on procedure lf2 Patient tolerated procedure well without adverse effect. O2 via Venturi mask \T\ 12L/min - 40%. Respiratory: Respiratory effort is even, labored, Use of accessory muscles noted. Respiratory pattern is regular tachypnea Sputum is thick brown Breath sounds are coarse bilaterally. Breath sounds with rhonchi bilaterally. Breath sounds are diminished bilaterally. Breath sounds with wheezes bilaterally. at expiration. 02:07 ABG's drawn from right radial artery allens test done and positive pressure held for 5 kjn minutes no bleeding noted pressure bandage applied specimen sent pt. tolerated well. 02:13 Subsequent Med Neb Given as ordered Patient tolerated procedure well without adverse lf2 effect. Respiratory: Breath sounds are coarse bilaterally. Breath sounds are diminished bilaterally. Breath sounds with wheezes bilaterally. at expiration. 15:45 Subsequent Med Neb Given as ordered Patient tolerated procedure well without adverse rs5 effect. Order Results: Lab Order: -Arterial Blood Gas; 04/06/16 02:02 Test: ABG pH (ARTERIAL); Value: 7.437; Range: 7.350-7.450; Units: UNITS; Status: F Test: ABG PARTIAL PRESSURE CO2; Value: 49.1; Range: 35.0-45.0; Abnormal: Above high normal; Units: mmHg; Status: F Test: ABG PARTIAL PRESSURE O2; Value: 96.5; Range: 75.0-100.0; Units: mmHg; Status: F Test: ABG TOTAL CO2; Value: 33.9; Range: 23.0-31.0; Abnormal: Above high normal; Units: MEQ/L; Status: F Test: ABG HCO3; Value: 32.4; Range: 22.0-26.0; Abnormal: Above high normal; Units: MEQ/L; Status: F Test: ABG BASE EXCESS; Value: 7.3; Range: -2.0-2.0; Abnormal: Above high normal; Status: F Test: ABG STANDARD HCO3; Value: 31.2; Range: 22.0-26.0; Abnormal: Above high normal; Units: MEQ/L; Status: F Test: ABG O2 SATURATION; Value: 97.2; Range: 95.0-99.0; Units: %; Status: F Test: ABG DEVICE; Value: NASAL SHEILA; Status: F Lab Order: B-Type Natiuretic Peptide; SPEC04/06/16 02:15 Test: BRAIN NATRIURETIC PEPTIDE; Value: 370; Range: <100; Abnormal: Above high normal; Units: PG/ML; Status: F Lab Order: Basic Metabolic Profile; SPEC04/06/16 02:15 Test: GLUCOSE, FASTING; Value: 129; Range: 83-110; Abnormal: Above high normal; Units: MG/DL; Status: F Test: BLOOD UREA NITROGEN; Value: 40; Range: 7-18; Abnormal: Above high normal; Units: MG/DL; Status: F Test: CREATININE FOR GFR; Value: 0.81; Range: 0.55-1.02; Units: MG/DL; Status: F Test: GLOMERULAR FILTRATION RATE; Value: > 60.0; Range: >32; Status: F Test: SODIUM LEVEL; Value: 143; Range: 136-145; Units: MEQ/L; Status: F Test: POTASSIUM SERUM; Value: 3.2; Range: 3.5-5.1; Abnormal: Below low normal; Units: MEQ/L; Status: F Test: CHLORIDE LEVEL; Value: 100; Range: 98-107; Units: MEQ/L; Status: F Test: CARBON DIOXIDE LEVEL; Value: 31; Range: 21-32; Units: MEQ/L; Status: F Test: ANION GAP; Value: 12; Range: 8-16; Units: MEQ/L; Status: F Test: CALCIUM LEVEL; Value: 7.7; Range: 8.8-10.2; Abnormal: Below low normal; Units: MG/DL; Status: F Test Note: ; Units are mL/min/1.73 m2 Chronic Kidney Disease Staging per NKF: Stage I & II GFR >=60 Normal to Mildly Decreased Stage III GFR 30-59 Moderately Decreased Stage IV GFR 15-29 Severely Decreased Stage V GFR <15 Very Little GFR Left ESRD GFR <15 on CNA CAREGIVER Lab Order: CBC with Diff; SPEC'M 04/06/16 02:15 Test: WHITE BLOOD COUNT; Value: 12.4; Range: 4.0-10.0; Abnormal: Above high normal; Units: K/mm3; Status: F Test: RED BLOOD COUNT; Value: 2.90; Range: 4.00-5.40; Abnormal: Below low normal; Units: M/mm3; Status: F Test: HEMOGLOBIN; Value: 7.8; Range: 12.0-16.0; Abnormal: Below low normal; Units: g/dl; Status: F Test: HEMATOCRIT; Value: 24.5; Range: 36.0-47.0; Abnormal: Below low normal; Units: %; Status: F Test: MEAN CORPUSCULAR VOLUME; Value: 84.6; Range: 80.0-96.0; Units: fl; Status: F Test: MEAN CORPUSCULAR HEMOGLOBIN; Value: 27.0; Range: 27.0-33.0; Units: pg; Status: F Test: MEAN CORPUSCULAR HGB CONC; Value: 31.9; Range: 32.0-36.5; Abnormal: Below low normal; Units: g/dl; Status: F Test: RED CELL DISTRIBUTION WIDTH; Value: 21.4; Range: 11.5-14.5; Abnormal: Above high normal; Units: %; Status: F Test: PLATELET COUNT, AUTOMATED; Value: 172; Range: 150-450; Units: k/mm3; Status: F Test: NEUTROPHILS %; Value: 94.7; Range: 36.0-66.0; Abnormal: Above high normal; Units: %; Status: F Test: LYMPH %; Value: 2.8; Range: 24.0-44.0; Abnormal: Below low normal; Units: %; Status: F Test: MONO %; Value: 1.7; Range: 0.0-5.0; Units: %; Status: F Test: EOS %; Value: 0.2; Range: 0.0-3.0; Units: %; Status: F Test: BASO %; Value: 0.0; Range: 0.0-1.0; Units: %; Status: F Test: LARGE UNSTAINED CELL %; Value: 0.5; Range: 0.0-4.0; Units: %; Status: F Test: NEUTROPHILS #; Value: 11.7; Range: 1.8-7.7; Abnormal: Above high normal; Units: K/mm3; Status: F Test: LYMPH #; Value: 0.3; Range: 1.5-4.5; Abnormal: Below low normal; Units: K/mm3; Status: F Test: MONO #; Value: 0.2; Range: 0.0-0.8; Units: K/mm3; Status: F Test: EOS #; Value: 0.0; Range: 0.0-0.50; Units: K/mm3; Status: F Test: BASO #; Value: 0.0; Range: 0.0-0.2; Units: K/mm3; Status: F Test: LARGE UNSTAINED CELL #; Value: 0.1; Range: 0.0-0.4; Units: K/mm3; Status: F Lab Order: Cardiac Injury Profile; SPEC'M 04/06/16 02:15 Test: CPK CREATINE PHOSPHOKINASE; Value: 45; Range: 26-192; Units: U/L; Status: F Test: CK-MB VALUE MASS; Value: 4.0; Range: 0.0-3.6; Abnormal: Above high normal; Units: NG/ML; Status: F Test: MB/CK RELATIVE INDEX; Value: 8.88; Range: < OR =4; Abnormal: Above high normal; Status: F Test Note: ; DIAGNOSIS CRITERIA MMB ng/ml Relative Index (RI) NON-AMI < or = 5 N/A MEYERS ZONE > 5 < or = 4 AMI > 5 > 4 Lab Order: Troponin; SPEC'M 04/06/16 02:15 Test: TROPONIN I; Value: 0.08; Range: < 0.10; Units: NG/ML; Status: F Test Note: ; Troponin I Reference Interval for PlanStan LOCI: 99th Percentile= 0.00-0.045 ng/ml Risk Stratification: <= 0.10 ng/ml Decreased Risk for Adverse Clinical Events. 0.10-1.50 ng/ml Increased Risk for Adverse Clinical Events. Evaluation of additional criterion and/or repeat testing in 2-6 hours is suggested to rule out myocardial damage. >= 1.50 ng/ml Indicative of Myocardial Injury. Lab Order: Pt & Aptt; SPEC'M 04/06/16 02:15 Test: PROTHROMBIN TIME; Value: 46.5; Range: 12.3-14.5; Abnormal: Above high normal; Units: SECONDS; Status: F Test: INR; Value: 5.03; Abnormal: Above upper panic limits; Status: F Test: PARTIAL THROMBOPLASTIN TIME; Value: 73.6; Range: 26.6-37.1; Abnormal: Above high normal; Units: SECONDS; Status: F Test Note: ; THERAPUTIC HUMAN INR VALUES INDICATIONS NORMAL RANGES PROPHYLAXIS/TREATMENT OF: VENOUS THROMBOSIS 2.0-3.0 PULMONARY EMBOLISM 2.0-3.0 PREVENTION OF SYSTEMIC EMBOLISM FROM: TISSUE HEART VALVES 2.0-3.0 ACUTE MYOCARDIAL INFARCTION 2.0-3.0 VALVULAR HEART DISEASE 2.0-3.0 ATRIAL FIBRILLATION 2.0-3.0 MECHANICAL VALVES(HIGH RISK) 2.5-3.5 RECURRENT MYOCARDIAL INFARCTION 2.5-3.5 Lab Order: Sputum Culture & Gram Stain; SPEC'M 04/06/16 10:20 Test: GRAM STAIN; Value: GRAM STAIN RESULT; Status: F Test: GRAM STAIN; Value: QUALITY: GOOD; Status: F Test: GRAM STAIN; Value: MANY WBCS; Status: F Test: GRAM STAIN; Value: FEW EPITHELIAL CELLS; Status: F Test: GRAM STAIN; Value: FEW GRAM POSITIVE COCCI; Status: F Test: GRAM STAIN; Value: FEW GRAM POSITIVE RODS; Status: F Lab Order: CARDIAC MARKER PANEL; SPEC'M 04/06/16 04:08 Test: CPK CREATINE PHOSPHOKINASE; Value: 47; Range: 26-192; Units: U/L; Status: F Test: CK-MB VALUE MASS; Value: 4.0; Range: 0.0-3.6; Abnormal: Above high normal; Units: NG/ML; Status: F Test: MB/CK RELATIVE INDEX; Value: 8.51; Range: < OR =4; Abnormal: Above high normal; Status: F Test: TROPONIN I; Value: 0.08; Range: < 0.10; Units: NG/ML; Status: F Test Note: ; DIAGNOSIS CRITERIA MMB ng/ml Relative Index (RI) NON-AMI < or = 5 N/A MEYERS ZONE > 5 < or = 4 AMI > 5 > 4 Lab Order: C REACTIVE PROTEIN QUANTITATIV; SPEC'M 04/06/16 07:20 Test: C REACTIVE PROTEIN QUANTITATIV; Value: 11.30; Range: 0.00-0.30; Abnormal: Above high normal; Units: MG/DL; Status: F Lab Order: LACTIC ACID LEVEL, LACTATE; SPEC'M 04/06/16 07:20 Test: LACTIC ACID LEVEL, LACTATE; Value: 3.8; Range: 0.4-2.0; Abnormal: Above upper panic limits; Units: MMOL/L; Status: F Radiology Order: Chest, 1 View Test: Chest, 1 View REASON FOR EXAMINATION: Shortness of Breath; AP portable sitting chest radiograph 04/06/2016; ; Indication: Shortness of breath; ; Comparison: PA and lateral chest 03/31/2016, 03/26/2016, CT chest 03/22/2016; ; Cardiac silhouette is not enlarged. There is mild aneurysmal dilatation of the; descending thoracic aorta. There are small bilateral pleural effusion is; increased from 03/31/2016. Diffuse interstitial infiltrates are now identified; consistent with upper lobe predominance. These findings are consistent with; interstitial pulmonary edema. There are some compressive atelectatic changes in; lung bases; there is also left perihilar atelectasis versus minimal infiltrate.; ; The bones are grossly normal in appearance; ; Impression; 1. Underlying COPD with interstitial pulmonary edema and small bilateral pleural; effusions representing interval change; ; 2. Bibasilar atelectatic changes; and left parahilar atelectatic changes vs; minimal infiltrate, representing interval change; ; 3. 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, stable in appearance; ; ; ; ; ; ; Signed by; Vane Henriquez MD 04/06/2016 08:07 A; Radiology Order: EKG-ADULT Test: EKG-ADULT REASON FOR EXAMINATION: Shortness of Breath; Stationary ECG Study; [facility] - ED; ; Test Date: 2016-04-06; Pat Name: RAQUEL RAMIREZ Department:; Room: [place] [address]; Gender: F Director Sports: michelle; : 1935 Requested By: ORLNADO Amado; Order Number: [id number] Reading MD: Katalina Zarate; Measurements; Intervals [place]; Rate: 117 P:; OK: 0 QRS: 63; QRSD: 67 T: 265; QT: 255; QTc: 356; Interpretive Statements; ATRIAL FIBRILLATION WITH RAPID VENTRICULAR RESPONSE; ST DEVIATION AND MODERATE T-WAVE ABNORMALITY, CONSIDER LATERAL ISCHEMIA; ST DEVIATION AND MODERATE T-WAVE ABNORMALITY, CONSIDER INFERIOR ISCHEMIA; SIMILAR 03/21/16; Electronically Signed On 04-06-2016 9:27:53 EST by Katalina Zarate; Radiology Order: CT Chest Without Contrast Test: CT Chest Without Contrast REASON FOR EXAMINATION: PULMONARY EDEMA, R/O PNA; ; CLINICAL HISTORY: Pulmonary edema.; TECHNIQUE: Multiple axial CT images were obtained through chest without IV contrast material. 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 Thi; s is at the left of the descending aorta.; IMPRESSION:; Significant decrease in bilateral pleural effusions.; Significant increase in bilateral multifocal, multilobar groundglass densities of the lungs. Multifoc; al pulmonary edema versus superimposed pneumonia.; No change in the aneurysm of the aorta.; Thank you for your kind referral of this patient.; ; ; Radiology Order: ECG WITH READING ER PHYS Test: ECG WITH READING ER PHYS REASON FOR EXAMINATION: DIFF BREATHING; Stationary ECG Study; [facility] - ED; ; Test Date: 2016-04-06; Pat Name: RAQUEL RAMIREZ Department:; Room: [place] [address]; Gender: F Director Sports: darien; : 1935 Requested By: ORLANDO Amado; Order Number: [id number] Reading MD: Katalina Zarate; Measurements; Intervals [place]; Rate: 120 P:; OK: 0 QRS: 63; QRSD: 77 T: 266; QT: 242; QTc: 342; Interpretive Statements; ATRIAL FIBRILLATION WITH RAPID VENTRICULAR RESPONSE; MARKED ST DEPRESSION, CONSIDER SUBENDOCARDIAL INJURY; SIMILAR 04/06/16 1:47; Electronically Signed On 04-06-2016 9:28:21 EST by Katalina Zarate; Outcome: 05:15 Decision to Hospitalize by Provider. mm11 20:41 Patient left the ED. sls1 Signatures: Dispatcher [employer] EDMS Lorraine Hadley, RN RN Christine Quezada, Blast Hole Driller Unit deg Jennifer Wood, Reg Reg Celio Olivera, Blast Hole Driller Unit ml3 Orlando Milan DO DO mm11 Lyn Hickman, RN RN hs1 Kat Mata, LANDSCAPE MANAGEMENT TECHNICIAN LANDSCAPE MANAGEMENT TECHNICIAN Leidy Pereyra RN RN sls1 Lm Stoll,RT RT rs5 Mariah Lozada Kari, RN RN ko2 Sofy Aguilar slOrlando Montana,RN RN mgs Clementine Boss,RT RT lf2 Dayna Montes, LANDSCAPE MANAGEMENT TECHNICIAN LANDSCAPE MANAGEMENT TECHNICIAN cln Venu Brown, LANDSCAPE MANAGEMENT TECHNICIAN LANDSCAPE MANAGEMENT TECHNICIAN jmv Corrections: (The following items were deleted from the chart) 01:39 01:31 Neurological: Level of Consciousness is awake, alert, ko2 ko2 08:38 08:30 Pulse 101bpm; Monitor; Pulse Ox 96% 02 40% Venturi mask; hs1 hs1 Chart Complete MTDD
--- NOTE | 2016-04-08 21:43 | EDDOCDS ---
Physician Documentation [facility] Name: Maria Guadalupe Roque Age: 80 yrs Sex: Female : 1935 Arrival Date: 04/06/2016 Time: 01:21 Bed Admit Hold Private MD: Disposition: 04/06/16 05:15 Hospitalization ordered by Willa Mukherjee for Inpatient Admission. Preliminary diagnosis is Acute diastolic (congestive) heart failure. - Bed requested for PCU. - Status is Inpatient Admission. sls1 - Condition is Stable. - Problem is an acute exacerbation. - Symptoms have improved. Historical: - Allergies: Prednisone; - Home Meds: 1. diltiazem HCl 360 mg Oral cp24 1 cap once daily 2. furosemide 20 mg Oral tab 1 tab 2 times per day 3. levothyroxine 25 mcg oral tab 1 tab once daily 4. Senokot 8.6 mg Oral tab twice a day 5. Coumadin 4 mg Oral tab once daily 6. Xanax 0.5 mg Oral tab 1 tab as needed 7. aspirin 81 mg Oral tab once daily 8. Lipitor 80 mg Oral tab 1 tab once daily 9. citalopram 20 mg Oral tab 1 tab once daily 10. Colace 100 mg oral cap 1 cap as needed 11. Vision Formula oral tab 120 mL daily 12. Protonix 40 mg Oral TbEC 1 tab once daily 13. theophylline 300 mg Oral cp24 1 cap once daily 14. Brovana 15 mcg/2 mL inhalation nebu 2 times per day 15. albuterol sulfate 2.5 mg /3 mL (0.083 %) Inhl nebu 3 mL as needed every 4 hours 16. DuoNeb 0.5 mg-3 mg(2.5 mg base)/3 mL Inhl nebu every 8 hours - PMHx: Atrial Fib; COPD; CVA; GERD; Hypertension; PVD; - PSHx: Angioplasty; - Social history: Smoking status: Patient states former smoker of tobacco. No barriers to communication noted, The patient speaks fluent Turkmen, Speaks appropriately for age. - : The pt / caregiver states he / she is on anticoagulants: coumadin. Home medication list is obtained from the patient. - Exposure Risk Screening:: None identified. Vital Signs: 04/06 01:34 BP 156 / 66; Pulse 95; Resp 30; Temp 98.2(TE); Pulse Ox 70% on R/A; Weight 42.2 kg / jmv 93.04 lbs (M); Height 5 ft. 2 in. (157.48 cm) (R); Pain 0/10; 01:35 Pulse 117 MON; Pulse Ox 93% ; ko2 01:43 Pulse Ox 100% on 100% Non-rebreather mask; jmv 02:29 Pulse 148 MON; Pulse Ox 94% ; ko2 02:30 BP 99 / 61 (auto/); ko2 02:44 Pulse 136 MON; Pulse Ox 94% ; ko2 02:45 BP 104 / 55 (auto/); ko2 03:00 BP 88 / 54 (auto/); ko2 03:00 Pulse 142 MON; Pulse Ox 93% ; ko2 03:14 BP 95 / 66 (auto/); ko2 03:14 Pulse 140 MON; Pulse Ox 89% ; ko2 03:15 BP 102 / 77 (auto/); ko2 03:15 Pulse 132 MON; Pulse Ox 91% ; ko2 03:29 Pulse 121 MON; Pulse Ox 90% ; ko2 03:30 BP 112 / 57 (auto/); ko2 03:45 BP 128 / 56 (auto/); ko2 03:45 Pulse 131 MON; Pulse Ox 93% ; ko2 03:59 Pulse 128 MON; Pulse Ox 92% ; ko2 04:00 BP 101 / 57 (auto/); ko2 04:15 BP 101 / 50 (auto/); ko2 04:15 Pulse 111 MON; Pulse Ox 90% ; ko2 04:29 Pulse 115 MON; Pulse Ox 91% ; ko2 04:30 BP 121 / 58 (auto/); ko2 04:45 BP 126 / 57 (auto/); ko2 04:45 Pulse 112 MON; Pulse Ox 90% ; ko2 05:00 BP 127 / 56 (auto/); ko2 05:00 Pulse 118 MON; Pulse Ox 91% ; ko2 05:14 Pulse 114 MON; Pulse Ox 91% ; ko2 05:15 BP 100 / 58 (auto/); ko2 05:29 Pulse 118 MON; Pulse Ox 89% ; ko2 05:30 BP 103 / 65 (auto/); ko2 05:45 BP 113 / 60 (auto/); ko2 05:45 Pulse 117 MON; Resp 22; Pulse Ox 91% ; ko2 06:29 Pulse 110 MON; Pulse Ox 93% ; hs1 06:30 BP 106 / 55 (auto/); hs1 06:44 Pulse 121 MON; Pulse Ox 93% ; hs1 06:45 BP 127 / 63 (auto/); hs1 07:00 BP 116 / 56 (auto/); hs1 07:00 Pulse 112 MON; Pulse Ox 95% ; hs1 07:15 BP 93 / 62 (auto/); hs1 07:15 Pulse 108 MON; Pulse Ox 96% ; hs1 07:30 BP 93 / 58 (auto/); hs1 07:30 Pulse 105 MON; Pulse Ox 95% ; hs1 07:45 BP 102 / 57 (auto/); hs1 07:45 Pulse 102 MON; Pulse Ox 94% ; hs1 08:00 BP 117 / 56 (auto/); hs1 08:00 Pulse 101 MON; Pulse Ox 96% ; hs1 08:15 BP 122 / 56 (auto/); hs1 08:15 Pulse 103 MON; Pulse Ox 96% ; hs1 08:30 BP 105 / 51 (auto/); hs1 08:30 Pulse 101 MON; Resp 20; Temp 98.5(TE); Pulse Ox 96% on 40% Venturi mask; hs1 01:34 Body Mass Index 17.02 (42.20 kg, 157.48 cm) jmv 01:34 RN notified about O2 jmv MDM: 01:42 Solu-MEDROL 125 mg IVP once ordered. mm11 01:42 -Blood Culture (Adults Only), peripheral from different site, or from device/port/PICC mm11 etc. if present ordered. 01:42 Checking Department Supervisor/Pulse Ox/q 15 min VS ordered. mm11 01:43 IV Saline Lock ordered. mm11 01:43 Oxygen at 4L/Min NC or Home dosage ordered. mm11 01:43 Rhythm Strip to chart ordered. mm11 01:43 Albuterol-Ipratropium 1 neb Nebulizer every 20 minutes x3 ordered. mm11 01:44 -Arterial Blood Gas Ordered. EDMS 01:44 -Blood Culture Ordered. EDMS 01:44 B-Type Natiuretic Peptide Ordered. EDMS 01:44 Basic Metabolic Profile Ordered. EDMS 01:44 CBC with Diff Ordered. EDMS 01:44 Cardiac Injury Profile Ordered. EDMS 01:44 Troponin Ordered. EDMS 01:44 Chest, 1 View Ordered. EDMS 01:44 ECG WITH READING ER PHYS+CARDIAG ordered. EDMS 01:45 -Blood Culture (Adults Only), peripheral from different site, or from device/port/PICC ml3 etc. if present complete. 01:45 BLOOD CULTURES Ordered. EDMS 02:01 Pt & Aptt Ordered. EDMS 02:10 Sputum Culture & Gram Stain Ordered. EDMS 02:16 Financial registration complete. [facility] 02:19 [facility] Payment Agreement was scanned into [employer] and attached to record. [facility] 02:31 -Arterial Blood Gas Reviewed. mm11 02:49 B-Type Natiuretic Peptide Reviewed. mm11 02:49 CBC with Diff Reviewed. mm11 03:01 Basic Metabolic Profile Reviewed. mm11 03:01 Cardiac Injury Profile Reviewed. mm11 03:01 Troponin Reviewed. mm11 03:08 Redraw CIP &Troponin (put time in details section) ordered. mm11 03:08 Repeat EKG (put time details section) ordered. mm11 03:13 Diltiazem 10 mg IVP once; administer over 2 minutes ordered. mm11 03:16 CT Chest Without Contrast Ordered. EDMS 03:21 Repeat EKG (put time details section) complete. ml3 03:21 Redraw CIP &Troponin (put time in details section) complete. ml3 03:22 ECG WITH READING ER PHYS ordered. EDMS 03:22 CARDIAC MARKER PANEL Ordered. EDMS 03:46 Diltiazem 15 mg IVP once; administer over 2 minutes ordered. mm11 04:35 Pt & Aptt Reviewed. mm11 04:49 CARDIAC MARKER PANEL Reviewed. mm11 05:01 Franklin ordered. mm11 05:01 Furosemide 40 mg IVP once ordered. mm11 05:02 BED REQUEST+ADM ordered. EDMS 05:39 Admission / Observation Status ordered. EDMS 05:39 2 GRAM SODIUM DIET ordered. EDMS 05:45 C REACTIVE PROTEIN QUANTITATIV Ordered. EDMS 05:45 LACTIC ACID LEVEL, LACTATE Ordered. EDMS 10:21 SPUTUM CULTURE AND GRAM STAIN Ordered. EDMS 13:03 T-Sheet-- Draft Copy was scanned into [employer] and attached to record. gb 13:03 Radiology Report was scanned into [employer] and attached to record. gb 19:31 COMPLETE BLOOD COUNT Ordered. EDMS 19:31 BASIC METABOLIC PROFILE Ordered. EDMS 04/07 07:54 PCR was scanned into [employer] and attached to record. gb Administered Medications: 04/06 02:05 Drug: Albuterol-Ipratropium 1 neb [ipratropium-albuterol 0.5 mg-3 mg(2.5 mg base)/3 mL lf2 nebulization soln (1 neb)] Route: Nebulizer; 02:13 Drug: Albuterol-Ipratropium 1 neb [ipratropium-albuterol 0.5 mg-3 mg(2.5 mg base)/3 mL lf2 nebulization soln (1 neb)] Route: Nebulizer; 02:15 Drug: Solu-MEDROL 125 mg [Solu-Medrol 500 mg intravenous solution (125 mg)] Route: IVP; ko2 Site: left upper arm; 03:16 Drug: Diltiazem 10 mg [diltiazem 5 mg/mL intravenous solution (2 mL)] Route: IVP; Site: ko2 left upper arm; 04:11 Drug: Diltiazem 15 mg [diltiazem 5 mg/mL intravenous solution (3 mL)] Route: IVP; Site: ko2 left upper arm; 05:56 Drug: Furosemide 40 mg [furosemide 10 mg/mL injection solution (4 mL)] Route: IVP; ko2 Site: left upper arm; Signatures: Dispatcher [employer] EDMS [place] Jennifer, Reg Reg gb Celio Reyes, Detasseler Unit ml3 Toro Milan, DO mm11 Leidy Hernandez RN RN sls1 Mary Woods RN RN ko2 Sofy Aguilar [facility] David Capps RN RN [facility] Clementine Boss lf2 The chart was reviewed and I authenticate all verbal orders and agree with the evaluation and treatment provided.Attachments: 02:19 [facility] Payment Agreement [facility] 13:03 T-Sheet-- Draft Copy Chart Complete MTDD
[2016-04-08] MEDS ORDERED: ALBUTEROL SULFATE 2.5 MG/0.5 ML INH NEB SOLN NEB ONE (22:30)
[2016-04-08 23:22] LABS: ABG BASE EXCESS 5.8 (-2.0-2.0); ABG HCO3 32.2 MEQ/L (22.0-26.0); ABG PARTIAL PRESSURE CO2 57.1 mmHg (35.0-45.0); ABG PARTIAL PRESSURE O2 74.9 mmHg (75.0-100.0); ABG STANDARD HCO3 29.7 MEQ/L (22.0-26.0); ABG TOTAL CO2 33.9 MEQ/L (23.0-31.0); ABG pH (ARTERIAL) 7.369 UNITS (7.350-7.450)
[2016-04-08 23:27] LABS: BASO # 0.1 K/mm3 (0.0-0.2); BASO % 0.9 % (0.0-1.0); EOS % 0.3 % (0.0-3.0); LARGE UNSTAINED CELL # 0.1 K/mm3 (0.0-0.4); LARGE UNSTAINED CELL % 0.6 % (0.0-4.0); LYMPH # 0.3 K/mm3 (1.5-4.5); LYMPH % 1.5 % (24.0-44.0); MEAN CORPUSCULAR HEMOGLOBIN 26.7 pg (27.0-33.0); MEAN CORPUSCULAR HGB CONC 31.5 g/dl (32.0-36.5); MEAN CORPUSCULAR VOLUME 84.8 fl (80.0-96.0); MONO # 0.3 K/mm3 (0.0-0.8); MONO % 2.5 % (0.0-5.0); NEUTROPHILS # 11.5 K/mm3 (1.8-7.7); NEUTROPHILS % 94.2 % (36.0-66.0); PLATELET COUNT, AUTOMATED 222 k/mm3 (150-450); WHITE BLOOD COUNT 12.2 K/mm3 (4.0-10.0)
[2016-04-08 23:45] LABS: ALBUMIN/GLOBULIN RATIO 0.79 (1.00-1.93); ALKALINE PHOSPHATASE 122 U/L (45-117); ALT/SGPT 49 U/L (12-78); ANION GAP 7 MEQ/L (8-16); AST/SGOT 24 U/L (15-37); BILIRUBIN,TOTAL 0.8 MG/DL (0.2-1.0); BLOOD UREA NITROGEN 43 MG/DL (7-18); CALCIUM LEVEL 8.6 MG/DL (8.8-10.2); CARBON DIOXIDE LEVEL 35 MEQ/L (21-32); CHLORIDE LEVEL 94 MEQ/L (98-107); CREATININE FOR GFR 0.93 MG/DL (0.55-1.02); GLOMERULAR FILTRATION RATE > 60.0 (>32); GLUCOSE, FASTING 192 MG/DL (83-110); POTASSIUM SERUM 4.1 MEQ/L (3.5-5.1); SODIUM LEVEL 136 MEQ/L (136-145); TOTAL PROTEIN 6.8 GM/DL (6.4-8.2)
[2016-04-09] VITALS (20 sets, daily range): BP systolic 111–153; BP diastolic 53–81; O2SAT 89–98
[2016-04-09] MEDS: methylPREDNISolone INJ 125 MG/2 ML VIAL (J2930) IV SCH ×5 (00:38→23:33)
[2016-04-09] MEDS: LEVALBUTEROL 1.25 MG/0.5 ML CONCENTRATE NEB INH PRN ×3 (02:25→09:35)
[2016-04-09] MEDS: IPRATROPIUM 0.02% SOLN 0.5MG/2.5 ML NEB INH PRN (04:21)
[2016-04-09 05:55] LABS: MEAN CORPUSCULAR HEMOGLOBIN 26.9 pg (27.0-33.0); MEAN CORPUSCULAR HGB CONC 31.2 g/dl (32.0-36.5); MEAN CORPUSCULAR VOLUME 86.3 fl (80.0-96.0); RED CELL DISTRIBUTION WIDTH 20.8 % (11.5-14.5); WHITE BLOOD COUNT 12.8 K/mm3 (4.0-10.0)
[2016-04-09 05:58] LABS: INR 2.2
[2016-04-09 06:19] LABS: ALBUMIN 2.9 GM/DL (3.2-5.2); ALBUMIN/GLOBULIN RATIO 0.81 (1.00-1.93); BILIRUBIN,TOTAL 0.7 MG/DL (0.2-1.0); CALCIUM LEVEL 8.8 MG/DL (8.8-10.2); CREATININE FOR GFR 1.06 MG/DL (0.55-1.02); POTASSIUM SERUM 4.6 MEQ/L (3.5-5.1); TOTAL PROTEIN 6.5 GM/DL (6.4-8.2)
[2016-04-09] MEDS: SLF 3 ML SYR IV SCH ×3 (06:57→21:44)
[2016-04-09] MEDS: VANCOMYCIN HCL 1,000 MG, VIAL MATE ADAPTER 1 EACH in D5W 250 ML IV SCH (06:57)
[2016-04-09] MEDS: IPRATROPIUM 0.02% SOLN 0.5MG/2.5 ML NEB INH SCH ×4 (07:27→20:55)
[2016-04-09] MEDS: LEVALBUTEROL 1.25 MG/0.5 ML CONCENTRATE NEB INH SCH ×5 (07:27→20:55)
[2016-04-09] MEDS: BUDESONIDE 0.5 MG/2 ML INHALATION SUSPENSION INH SCH ×2 (07:27→20:53)
[2016-04-09] MEDS: FORMOTEROL FUMARATE 20 MCG/2 ML INHALATION SOLUTION (PERFOROMIST) INH SCH ×2 (07:27→20:53)
[2016-04-09 07:32] LABS: ABG BASE EXCESS 3.2 (-2.0-2.0); ABG HCO3 29.8 MEQ/L (22.0-26.0); ABG PARTIAL PRESSURE CO2 57.1 mmHg (35.0-45.0); ABG PARTIAL PRESSURE O2 62.7 mmHg (75.0-100.0); ABG STANDARD HCO3 27.2 MEQ/L (22.0-26.0); ABG TOTAL CO2 31.6 MEQ/L (23.0-31.0); ABG pH (ARTERIAL) 7.336 UNITS (7.350-7.450)
[2016-04-09] MEDS: FUROSEMIDE 40 MG/4 ML VIAL (J1940) IV SCH (09:02)
[2016-04-09] MEDS: CEFEPIME HCL 2 GM in D5W MINI-BAG PLUS 50 ML IV SCH (09:02)
[2016-04-09] MEDS: CitaloPRAM (CeleXA) 20 MG TAB PO SCH (09:03)
[2016-04-09] MEDS: LEVOTHYROXINE 0.025 MG TAB (25 MCG) PO SCH (09:03)
[2016-04-09] MEDS: DIGOXIN 0.125 MG TAB PO SCH (09:04)
--- NOTE | 2016-04-09 11:15 | CCN ---
DATE OF SERVICE: 04/09/2016 Critical care time was 44 minutes. This excludes all procedures. I was called to the patient's bedside for worsening respiratory distress. The patient is significantly tachypneic, unable to talk due to the severity of her shortness of breath. She had worsening dyspnea, worsening hypoxia overnight. Her arterial blood gas this morning shows some decompensation of her hypercarbic respiratory failure; pH this morning was 7.336, 57, 62. Yesterday, pAO2 was up to 118 on last FiO2. After interviewing prior nursing staff, they did state when she came in, she did cough up quite a bit of blood. Her anticoagulation is on hold currently. Attempts at diuresis have not improved her oxygenation. She is net negative 800 mL over the past 24 hours. Her anemia is unchanged from yesterday. Hemoglobin is 9.3. She is more tachypneic because of her respiratory distress. Temperature is 96.0. Her respiratory rate is up to 42. She is critically ill and, therefore, will be transferred to the intensive care unit (ICU) for bilevel management. She is high risk for needing intubation, mechanical ventilation. PHYSICAL EXAMINATION: Temperature is 96.0, pulse is 103, respiratory rate of 42, blood pressure is 131/60, oxygen saturation was 98% on 3 liters. General: The patient is tachypneic using accessory muscles to breathe. Unable to speak full sentences. HEENT: Sclerae clear. Pupils are dilated approximately 8 mm and reactive to light. Mucous membranes are moist. Tongue is midline. Neck: Supple. No tracheal deviation or mass. Lymphatic: No cervical, supraclavicular, or axillary adenopathy. Cardiac: Distant S1, S2 without audible murmur, rub, or gallop. No discernible elevated jugular venous pressure (JVP). Lower extremities with minimal pedal edema. Pulmonary: Diffuse expiratory wheeze throughout both lung garza with prolonged expiratory phase. There are rales at the bases bilaterally. No dullness to percussion. Abdomen is soft, nondistended. No hepatosplenomegaly. No masses or hernia. Extremities: Minimal pitting edema, as mentioned above. No cyanosis or clubbing. Skin is pale without rashes, jaundice, or bruising. Laboratory evaluation shows a white blood cell count of 12.8, hemoglobin 9.3, hematocrit of 29.7, with a platelet count of 234. Sodium is 138, potassium is 4.6, chloride is 96, bicarbonate of 34, BUN of 53, creatinine of 1.06 which is increased. INR is 2.20. Glucose of 206, calcium is 8.8. Intake and output (I and O) over the past 24 hours: 1140 in, 950 out, net negative 810. Chest x-ray is pending. IMPRESSION: 1. Severe respiratory distress with hypercarbic respiratory failure. A trial of bilateral positive airway pressure (BiPAP) due to the increased work of breathing. She is at high risk for requiring intubation, mechanical ventilation. Despite her chronic illnesses and her age, she wishes to be FULL CODE. This has been addressed multiple times. She was actually recently intubated on mechanical ventilation. 2. Lactic acidosis, mild and likely from the increased work of breathing. Will continue to monitor for signs of sepsis, pulmonary infiltrates. I suspect initial alveolar hemorrhage due to her elevated international normalized ratio (INR) with underlying advanced emphysema. At this point in time, her hemoglobin is unchanged, and her INR has been corrected down to 2. She does have a history of stroke and is at high risk for thromboembolic disease. Therefore, at this point in time, she will not be completely reversed. Will continue to monitor for further evidence of hemorrhage. I will repeat a chest x-ray this morning. At this point in time, her BUN and creatinine have increased. She does not appear to have significant decompensated heart failure. Will administer Lasix based on daily physical assessment rather than a scheduled order. 3. Atrial fibrillation, currently in sinus tachycardia. Will continue to monitor heart rate. Will continue rate-control medications and monitor for hypotension. 4. History of coronary artery disease. No evidence of acute angina. Will continue to monitor cardiac status in the ICU. 5. Deep venous thrombosis (DVT) prophylaxis with thromboembolic deterrents (TEDs). International normalized ratio (INR) is at therapeutic range. 6. Ulcer prophylaxis with Protonix.
--- NOTE | 2016-04-09 11:17 | REP ---
Clinical: Respiratory failure. Comparison: 04/08/2016. Findings: Right upper lobe and diffuse left-sided alveolar infiltrates are suggested with underlying chronic COPD/emphysematous changes and scattered scarring. Chronic blunting to the costophrenic angles and diaphragmatic surfaces suggested and small pleural effusions cannot be excluded. No pneumothorax. Mediastinum and cardiac silhouette stable. Skeletal structures unchanged. Impression: Chronic changes with superimposed right upper lobe and diffuse left-sided alveolar infiltrates along with possible small bilateral pleural effusions. Signed by Cali Alberto MD 04/09/2016 11:09 A
[2016-04-09 13:14] LABS: ABG BASE EXCESS 7.5 (-2.0-2.0); ABG HCO3 33.8 MEQ/L (22.0-26.0); ABG PARTIAL PRESSURE CO2 58.9 mmHg (35.0-45.0); ABG PARTIAL PRESSURE O2 82.7 mmHg (75.0-100.0); ABG STANDARD HCO3 31.2 MEQ/L (22.0-26.0); ABG TOTAL CO2 35.6 MEQ/L (23.0-31.0); ABG pH (ARTERIAL) 7.377 UNITS (7.350-7.450)
--- NOTE | 2016-04-09 16:50 | IPNPDOC ---
Date of Service/Time 04/09/16 Progress Note SUBJECTIVE: The patient complains of difficulty breathing at this time she has no other complaints otherwise OBJECTIVE: PHYSICAL EXAMINATION: VITAL SIGNS: Increased O2 requirement this morning, increased heart rate Please see below. GENERAL: She is a frail cachectic appearing female sitting up in bed she she does appear to be in respiratory distress with accessory muscle use HEENT: Pupils equally round reactive to light there is elevation central venous pressure she has moist mucous membranes CARDIOVASCULAR: S1-S2 irregularly irregular and tachycardic. RESPIRATORY: accessory muscle use, she is tachypnic, she is quite rhonchorous throughout ABDOMINAL: Bowel sounds present abdomen soft EXTREMITIES: no edema bilaterally NEUROLOGICAL: NonFocal LABORATORY DATA: Hemoglobin stable, appropriate reticulocytosis, persistent leukocytosis, INR 2.2 otherwise Please see below. MICROBIOLOGY: Blood cultures thus far negative urine and sputum positive for yeast otherwise Please see below. 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 Chest x-rays are unchanged DVT prophylaxis ordered?: Patient has a therapeutic INR secondary to Coumadin ASSESSMENT AND PLAN: This is a 80-year-old female with hypoxic and hypercarbic respiratory failure and atrial fibrillation with rapid ventricular response. Problem #1 hypoxic respiratory failure: Patient normally has no oxygen requirement at the present time is requiring 5 L she is also more hypercarbic this a.m. I spoke with Dr. Gómez and given that the patient has increased work of breathing we're going to transfer to the medical intensive care unit for a trial of BiPAP I did contact the patient's healthcare proxy and daughter and readdress the patient's CODE STATUS with both patient and her daughter this morning. She remains a full code. All questions were answered to satisfaction with the patient and her healthcare proxy. At the present time given her restaurant distress she is being treated broadly for both healthcare associated pneumonia reversal of her INR for alveolar hemorrhage she has been diuresed significantly for potential pulmonary edema and she is receiving IV Solu-Medrol for potential decompensated COPD. In the face of the above the patient's clinical status appears to be continued to deteriorate. Problem #2 atrial fibrillation with rapid ventricular response: The patient had improved rate with titrating up Cardizem and continuing digoxin Dr. Palomino is aware. Today she is more tachycardic feel this is less likely related to intrinsic cardiac disease and more secondary to the stress related to her respiratory status as well. Dr. Palomino did not feel the patient would benefit from a pacemaker. At the present time the patient did have some acute anemia presentation without any obvious clear blood loss source there is concern for alveolar hemorrhage as such INR has been somewhat reversed although not completely as of yet. For the time being we will hold off on any further anticoagulation. I do not suspect she is actively bleeding or imaging does not appear significantly different in her H&H has remained stable Problem #3 hypothyroidism continue with Synthroid Problem #4 anemia: Unclear etiology however the patient has had acute drop in her hemoglobin at this time there is concern for alveolar hemorrhage given her reticulocytosis and fairly unremarkable iron studies it does appear to be acute blood loss anemia. Problem #5 lactic acidosis: Likely secondary to respiratory distress Problem #6 anxiety: Continue with Celexa we will hold her home Xanax given her tenuous respiratory status will restart when necessary at a lower dose to avoid withdrawal symptoms. Problem #7 CVA: The patient is on aspirin and statins currently on hold, Coumadin is currently on hold and restart statin as appropriate she has high risk for stroke while these medications are on hold at this time the risks outweigh the benefit Problem #8 abdominal aortic aneurysm: Stable requires outpatient follow-up DISPOSITION: The patient's clinical status remains quite guarded at this time the patient and the patient's healthcare proxy are both aware that her cardiac status could deteriorate at any time VS, I&O, 24H, Fishbone VS, I&O, 24H, Fishbone Vital Signs Date Time Temp Pulse Resp B/P Pulse Ox O2 Delivery O2 Flow Rate FiO2 04/09/16 16:00 98 BIPAP/CPAP 50 04/09/16 16:00 97.3 89 48 144/65 04/09/16 09:32 3.0 I&O- Last 24 Hours up to 6 AM 04/09/16 06:00 Intake Total 900 ml Output Total 1875 ml Balance -975 ml Laboratory Tests 2 04/08/16 22:47: Arterial Blood pH 7.369, Arterial Blood Partial Pressure CO2 57.1H, Arterial Blood Partial Pressure O2 74.9L, Arterial Blood Total CO2 33.9H, Arterial Blood HCO3 32.2H, Arterial Blood Base Excess 5.8H, Arterial Blood Oxygen Saturation 93.5L, Blood Gas Bicarbonate Standard 29.7H 04/08/16 23:06: Blood Urea Nitrogen 43H, Creatinine 0.93, Sodium Level 136, Potassium Level 4.1 , Chloride Level 94L, Carbon Dioxide Level 35H, Calcium Level 8.6L, Aspartate Amino Transf (AST/SGOT) 24, Alanine Aminotransferase (ALT/SGPT) 49, Alkaline Phosphatase 122H, Total Bilirubin 0.8, Total Protein 6.8, Albumin 3.0L, Albumin/ Globulin Ratio 0.79L, Anion Gap 7L, White Blood Count 12.2H, Red Blood Count 3.54L, Hemoglobin 9.4L, Hematocrit 30.0L, Mean Corpuscular Volume 84.8, Mean Corpuscular Hemoglobin 26.7L, Mean Corpuscular Hemoglobin Concent 31.5L, Red Cell Distribution Width 21.0H, Platelet Count 222, Neutrophils (%) (Auto) 94.2H , Lymphocytes (%) (Auto) 1.5L, Monocytes (%) (Auto) 2.5, Eosinophils (%) (Auto) 0.3, Basophils (%) (Auto) 0.9, Neutrophils # (Auto) 11.5H, Lymphocytes # (Auto) 0.3L, Monocytes # (Auto) 0.3, Eosinophils # (Auto) 0.0, Basophils # (Auto) 0.1, Glomerular Filtration Rate > 60.0, Lactic Acid Level 2.4*H, Large Unclassified Cells # 0.1, Large Unclassified Cells % 0.6 04/09/16 05:38: Blood Urea Nitrogen 53H, Creatinine 1.06H, Sodium Level 138, Potassium Level 4.6 , Chloride Level 96L, Carbon Dioxide Level 34H, Calcium Level 8.8, Aspartate Amino Transf (AST/SGOT) 18, Alanine Aminotransferase (ALT/SGPT) 47, Alkaline Phosphatase 127H, Total Bilirubin 0.7, Total Protein 6.5, Albumin 2.9L, Albumin/ Globulin Ratio 0.81L, Anion Gap 8, Glomerular Filtration Rate 53.0, Prothromb Time International Ratio 2.20, Prothrombin Time 24.5H 04/09/16 07:13: Arterial Blood pH 7.336L, Arterial Blood Partial Pressure CO2 57.1H, Arterial Blood Partial Pressure O2 62.7L, Arterial Blood Total CO2 31.6H, Arterial Blood HCO3 29.8H, Arterial Blood Base Excess 3.2H, Arterial Blood Oxygen Saturation 89.1L, Blood Gas Bicarbonate Standard 27.2H 04/09/16 13:04: Arterial Blood pH 7.377, Arterial Blood Partial Pressure CO2 58.9H, Arterial Blood Partial Pressure O2 82.7, Arterial Blood Total CO2 35.6H, Arterial Blood HCO3 33.8H, Arterial Blood Base Excess 7.5H, Arterial Blood Oxygen Saturation 95.3, Blood Gas Bicarbonate Standard 31.2H Laboratory Tests 04/08/16 23:06 Calcium Level 8.6 L, Aspartate Amino Transf (AST/SGOT) 24, Alanine Aminotransferase (ALT/SGPT) 49, Alkaline Phosphatase 122 H, Total Bilirubin 0.8 , Total Protein 6.8, Albumin 3.0 L, Red Blood Count 3.54 L, Mean Corpuscular Volume 84.8, Mean Corpuscular Hemoglobin 26.7 L, Mean Corpuscular Hemoglobin Concent 31.5 L, Red Cell Distribution Width 21.0 H, Neutrophils (%) (Auto) 94.2 H, Lymphocytes (%) (Auto) 1.5 L, Monocytes (%) (Auto) 2.5, Eosinophils (%) (Auto ) 0.3, Basophils (%) (Auto) 0.9, Neutrophils # (Auto) 11.5 H, Lymphocytes # ( Auto) 0.3 L, Monocytes # (Auto) 0.3, Eosinophils # (Auto) 0.0, Basophils # (Auto ) 0.1 04/09/16 05:38 Calcium Level 8.8, Aspartate Amino Transf (AST/SGOT) 18, Alanine Aminotransferase (ALT/SGPT) 47, Alkaline Phosphatase 127 H, Total Bilirubin 0.7 , Total Protein 6.5, Albumin 2.9 L, Red Blood Count 3.44 L, Mean Corpuscular Volume 86.3, Mean Corpuscular Hemoglobin 26.9 L, Mean Corpuscular Hemoglobin Concent 31.2 L, Red Cell Distribution Width 20.8 H Microbiology 04/06/16 Blood Culture - Preliminary, Resulted No Growth after 72 hours. All specime... 04/06/16 Blood Culture - Preliminary, Resulted No Growth after 72 hours. All specime... 04/07/16 Stool Occult Blood (ETIENNE) - Final, Complete 04/09/16 MRSA Screen, Received Pending 04/07/16 MRSA Screen - Final, Complete 04/06/16 Gram Stain - Final, Complete 04/06/16 Sputum Culture - Final, Complete Yeast Like Organism 04/07/16 Urine Culture - Final, Complete Yeast Like Organism CAMELIA KAY MD Apr 09, 2016 16:50
[2016-04-10] VITALS: BP 133/62
[2016-04-10] MEDS: LEVALBUTEROL 1.25 MG/0.5 ML CONCENTRATE NEB INH PRN (00:23)
[2016-04-10 04:00] VITALS: BP 129/58
[2016-04-10 05:16] LABS: MEAN CORPUSCULAR HEMOGLOBIN 26.9 pg (27.0-33.0); MEAN CORPUSCULAR HGB CONC 31.7 g/dl (32.0-36.5); RED CELL DISTRIBUTION WIDTH 20.7 % (11.5-14.5); WHITE BLOOD COUNT 8.5 K/mm3 (4.0-10.0)
[2016-04-10 05:22] LABS: INR 2.76
[2016-04-10 05:32] LABS: ALBUMIN 2.9 GM/DL (3.2-5.2); ALBUMIN/GLOBULIN RATIO 0.88 (1.00-1.93); BILIRUBIN,TOTAL 0.8 MG/DL (0.2-1.0); CREATININE FOR GFR 1.04 MG/DL (0.55-1.02); GLOMERULAR FILTRATION RATE 54.1 (>32); POTASSIUM SERUM 4.7 MEQ/L (3.5-5.1); TOTAL PROTEIN 6.2 GM/DL (6.4-8.2)
[2016-04-10] MEDS: VANCOMYCIN HCL 1,000 MG, VIAL MATE ADAPTER 1 EACH in D5W 250 ML IV SCH (05:53)
[2016-04-10] MEDS: SLF 3 ML SYR IV SCH ×3 (05:53→21:24)
[2016-04-10] MEDS: methylPREDNISolone INJ 125 MG/2 ML VIAL (J2930) IV SCH (05:53)
[2016-04-10] MEDS: LEVOTHYROXINE 0.025 MG TAB (25 MCG) PO SCH (05:53)
[2016-04-10 06:00] VITALS: BP 131/73
[2016-04-10] MEDS ORDERED: SCOPOLAMINE 1.5 MG TRANSDERMAL TD PRN (08:00)
[2016-04-10] MEDS: IPRATROPIUM 0.02% SOLN 0.5MG/2.5 ML NEB INH SCH (08:00)
[2016-04-10] MEDS ORDERED: LORazepam 2 MG/ML VIAL (J2060) IV PRN (08:00)
[2016-04-10] MEDS: LEVALBUTEROL 1.25 MG/0.5 ML CONCENTRATE NEB INH SCH (08:00)
[2016-04-10] MEDS: MORPHINE 2 MG/ML 1ML SYRINGE IV PRN ×2 (08:41→11:25)
--- NOTE | 2016-04-10 09:40 | IPNPDOC ---
Date of Service/Time 04/10/16 Progress Note SUBJECTIVE: The patient complains she is short of breath and she does not want to wear her mask OBJECTIVE: PHYSICAL EXAMINATION: VITAL SIGNS: Please see below. GENERAL: She is a frail cachectic appearing female sitting up in bed wearing her BiPAP mask she does appear to be tachypnic and in respiratory distress HEENT: Pupils equally round reactive to light there is elevation central venous pressure she has moist mucous membranes CARDIOVASCULAR: S1-S2 irregularly irregular and tachycardic. RESPIRATORY: accessory muscle use, she is short of breath, she is quite rhonchorous throughout ABDOMINAL: Bowel sounds present abdomen soft EXTREMITIES: no edema bilaterally NEUROLOGICAL: NonFocal LABORATORY DATA: Please see below. MICROBIOLOGY: Blood cultures thus far negative urine and sputum positive for yeast otherwise Please see below. 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 Chest x-rays are essentially unchanged DVT prophylaxis ordered?: Patient has a therapeutic INR secondary to Coumadin ASSESSMENT AND PLAN: This is a 80-year-old female with hypoxic and hypercarbic respiratory failure and atrial fibrillation with rapid ventricular response. Problem #1 hypoxic respiratory failure: Patient normally has no oxygen requirement at the present time is requiring BiPAP she is also hypercarbic I did speak with the patient's daughter yesterday and the patient for the last several days but her CODE STATUS as the Dr. Gómez of pulmonary this morning the patient does not want to wear her BiPAP mask and she was to be kept comfortable only the patient and her daughter the healthcare proxy electing for comfort measures only this is not reasonable given that she was recently intubated in the intensive care only a few weeks ago and is quickly approaching the same situation at this time will form is completed signed and placed in the chart for measures only orders have been entered patient also proxy aware that no further blood tests will be drawn no more vital signs checked the monitors will be turned off and every effort will be made to keep her comfortable for the remaining time she has left in her life. VS, I&O, 24H, Fishbone VS, I&O, 24H, Fishbone Vital Signs Date Time Temp Pulse Resp B/P Pulse Ox O2 Delivery O2 Flow Rate FiO2 04/10/16 08:27 40 04/10/16 06:00 90 36 131/73 94 NIPPV (BIPAP/CPAP) 04/10/16 04:00 97.0 04/09/16 09:32 3.0 I&O- Last 24 Hours up to 6 AM 04/10/16 05:59 Intake Total 480 ml Output Total 845 ml Balance -365 ml Laboratory Tests 2 04/09/16 13:04: Arterial Blood pH 7.377, Arterial Blood Partial Pressure CO2 58.9H, Arterial Blood Partial Pressure O2 82.7, Arterial Blood Total CO2 35.6H, Arterial Blood HCO3 33.8H, Arterial Blood Base Excess 7.5H, Arterial Blood Oxygen Saturation 95.3, Blood Gas Bicarbonate Standard 31.2H 04/10/16 04:51: Blood Urea Nitrogen 61H, Creatinine 1.04H, Sodium Level 141, Potassium Level 4.7 , Chloride Level 99, Carbon Dioxide Level 38H, Calcium Level 9.0, Aspartate Amino Transf (AST/SGOT) 27, Alanine Aminotransferase (ALT/SGPT) 57, Alkaline Phosphatase 132H, Total Bilirubin 0.8, Total Protein 6.2L, Albumin 2.9L, Albumin /Globulin Ratio 0.88L, Anion Gap 4L, Glomerular Filtration Rate 54.1, Prothromb Time International Ratio 2.76, Prothrombin Time 29.2H 04/10/16 06:17: Lactic Acid Level 0.9 Laboratory Tests 04/10/16 04:51 Calcium Level 9.0, Aspartate Amino Transf (AST/SGOT) 27, Alanine Aminotransferase (ALT/SGPT) 57, Alkaline Phosphatase 132 H, Total Bilirubin 0.8 , Total Protein 6.2 L, Albumin 2.9 L, Red Blood Count 3.28 L, Mean Corpuscular Volume 85.0, Mean Corpuscular Hemoglobin 26.9 L, Mean Corpuscular Hemoglobin Concent 31.7 L, Red Cell Distribution Width 20.7 H Microbiology 04/06/16 Blood Culture - Preliminary, Resulted No Growth after 72 hours. All specime... 04/06/16 Blood Culture - Preliminary, Resulted No Growth after 72 hours. All specime... 04/07/16 Stool Occult Blood (ETIENNE) - Final, Complete 04/09/16 MRSA Screen, Received Pending 04/07/16 MRSA Screen - Final, Complete 04/06/16 Gram Stain - Final, Complete 04/06/16 Sputum Culture - Final, Complete Yeast Like Organism 04/07/16 Urine Culture - Final, Complete Yeast Like Organism CAMELIA KAY MD Apr 10, 2016 09:40
[2016-04-10] MEDS: LORazepam 1 MG TAB PO PRN (21:29)
[2016-04-11] MEDS: MORPHINE 10MG/0.5ML ORAL CONCENTRATE SOLUTION U/D SL PRN ×3 (00:29→07:00)
[2016-04-11] MEDS: LORazepam 1 MG TAB PO PRN ×2 (03:22→06:59)
[2016-04-12] MEDS: LORazepam 1 MG TAB PO PRN (02:39)
[2016-04-12] MEDS: MORPHINE 10MG/0.5ML ORAL CONCENTRATE SOLUTION U/D SL PRN (02:39)
--- NOTE | 2016-04-12 13:39 | DSES ---
DATE OF ADMISSION: 04/06/2016 DATE OF : 04/12/2016 TIME OF : 4:30 a.m. CAUSE OF : Alveolar hemorrhage. SECONDARY DIAGNOSES: 1. Combined hypercarbic hypoxic respiratory failure. 2. Chronic obstructive pulmonary disease (COPD). 3. Healthcare-associated pneumonia. 4. Atrial fibrillation. 5. Hypothyroidism. 6. Lactic acidosis. 7. Anxiety. 8. History of a CVA. 9. Severe protein calorie malnutrition, with BMI 16.6 CONSULTANTS: Dr. Kevin Gómez, pulmonary and critical care medicine. HOSPITAL COURSE: The patient is an 80-year-old female who had recently been discharged after a long and complicated hospital stay where she was previously placed on invasive mechanical ventilation with endotracheal intubation. She had recovered from that hospitalization and was discharged home. However, the patient quickly returned once again, this time anemic and with hypoxic respiratory failure. She remained in the hospital for several days. She was seen in consultation by pulmonary and critical care medicine who felt that patient suffered from an alveolar hemorrhage. The patient proceeded to have combined hypoxic hypercarbic respiratory failure and was placed in the medical intensive care unit on bilevel positive airway pressure (BiPAP). The patient was on this for less than 24 hours before she refused to wear it any further and stated that she wished to only be kept comfortable and not have any further life sustaining measures. She did discuss this with her daughter and healthcare proxy who was at bedside. I did speak to both of them and they both unanimously agreed to forego any life prolonging measures and to only take measures for comfort. At that time the patient was discontinued from all of her nonessential medications. No further blood draws or vital signs were checked and she was placed on comfort measures only. She was kept comfortable until the end of her life at 4:30 a.m. on 04/12/2016. No autopsy. Next of kin notified. Organ donation services notified. RUDOLPH
== END 2016-04-12 04:30 | disposition expired | DRG 189 ==
LOC: M ED 01:21 → M ED INP 05:35 → M PCU 20:33 → M ICU 04-09 10:58 → M MS5PR 04-10 11:45
PROVIDERS: ADMIT Internal Medicine; ATTEND Internal Medicine
PROC: 30233N1 Transfusion of Nonautologous Red Blood Cells into Peripheral Vein, Percutaneous Approach (ICD-10-PCS; principal; 2016-04-07)
PROC: 30233K1 Transfusion of Nonautologous Frozen Plasma into Peripheral Vein, Percutaneous Approach (ICD-10-PCS; 2016-04-07)
DX: J96.01 Acute respiratory failure with hypoxia (principal); J18.9 Pneumonia, unspecified organism; I50.33 Acute on chronic diastolic (congestive) heart failure; E43 Unspecified severe protein-calorie malnutrition; R04.89 Hemorrhage from other sites in respiratory passages; E87.2 Acidosis; R04.2 Hemoptysis; Z68.1 Body mass index [BMI] 19.9 or less, adult; J96.02 Acute respiratory failure with hypercapnia; Z86.73 Personal history of transient ischemic attack (TIA), and cerebral infarction without residual deficits; I48.91 Unspecified atrial fibrillation; E03.9 Hypothyroidism, unspecified; I10 Essential (primary) hypertension; Z88.5 Allergy status to narcotic agent; Z79.899 Other long term (current) drug therapy; Z79.01 Long term (current) use of anticoagulants; I27.2 Other secondary pulmonary hypertension; I77.1 Stricture of artery; M81.0 Age-related osteoporosis without current pathological fracture; H35.30 Unspecified macular degeneration; Z79.82 Long term (current) use of aspirin; Z87.891 Personal history of nicotine dependence; Z85.42 Personal history of malignant neoplasm of other parts of uterus; F41.9 Anxiety disorder, unspecified; F32.9 Major depressive disorder, single episode, unspecified; I71.4 Abdominal aortic aneurysm, without rupture